=== PATIENT | female | born 1955 | race Caucasian/White ===

== ENCOUNTER → 2022-07-05 15:47 | Outpatient (CLI) | payer BC, SELFPAY ==
--- NOTE | ~2022-07-05 | XR_ITS ---
EXAM: XR ankle LT min 3V DATE: 07/05/2022 16:28 HISTORY: Chronic pain of ankle . COMPARISON: None available. FINDINGS: Normal mineralization. Osseous fragment at the tip of the lateral malleolus may represent an old avulsion fracture versus fractured osteophyte. Achilles and plantar enthesopathy No acute frac ture or dislocation. No lytic or blastic lesion. Moderate narrowing and osteophytosis at the tibiotal ar joint. No erosion or periosteal change. Soft tissues within normal limits. IMPRESSION: Moderate tibiotalar osteoarthritis. Reviewed, dictated and finalized at location K.
== END ==
DX: M19.072 Primary osteoarthritis, left ankle and foot (principal)
CPT/HCPCS: 73610

== ENCOUNTER 2023-06-07 14:19 | Outpatient (CLI) | payer BC, MEDICARE, SELFPAY ==
--- NOTE | ~2023-06-07 | XR_ITS ---
XR hip RT 2V w AP pelvis DATE: 06/07/2023 14:50 INDICATION: Right hip pain TECHNIQUE: AP pelvis. AP and lateral views of right hip. COMPARISON: None FINDINGS: Levoscoliosis of the lumbar spine. The pubic symphysis and sacroiliac joints are intact. No pelvic fracture or bone destruction. Hip joint spaces are symmetric and relatively well preserved. No fracture, dislocation, avascular necrosis or bone destruction of the right hip. IMPRESSION: No pelvic or right hip fracture Reviewed, dictated and finalized at location B.
== END 2023-06-07 14:20 ==
DX: M25.551 Pain in right hip (principal)
CPT/HCPCS: 73502

== ENCOUNTER 2023-07-06 14:59 | Outpatient (CLI) | payer MEDICARE, SELFPAY ==
--- NOTE | ~2023-07-06 | MR_ITS ---
EXAMINATION: MR foot RT wo/w con DATE: 07/06/2023 16:02 INDICATION: Neuroma with plantar right foot pain TECHNIQUE: Magnetic resonance imaging (MRI) of the right fore/mid foot was performed without and with 15 mL Multihance intravenous contrast. Sequences included sagittal T1-weighted FSE, sagittal fluid s ensitive FSE STIR, coronal PD-weighted FS FSE, coronal T1-weighted FSE, axial T2-weighted FS FSE, axi al T1-weighted FSE, axial T1-weighted FS FSE and postcontrast axial, sagittal and coronal T1-weighted FS FSE. COMPARISON: None FINDINGS: Bone alignment is normal. No fracture or pathologic marrow replacing process. There is mild polyartic ular osteoarthritis at the first metatarsophalangeal joint and several tarsal metatarsal and interpha langeal joints. There is mild subarticular edema-like signal change at the base of the third metatars al. Mild cystic change at the medial head of the first metatarsal consistent with a developing bunion . Physiologic amount fluid in the joint spaces. There is an 11 x 8 x 3 mm nonenhancing fluid collecti on situated between the heads of the first and second metatarsals consistent with mild intermetatarsa l bursitis. No enhancing Teran neuroma or other abnormally enhancing masses identified. Visualized p ortions of the flexor and extensor tendons are normal. The Lisfranc complex and the collateral ligame nt complex at the metatarsophalangeal and interphalangeal joints are normal. Intrinsic musculature of the foot is unremarkable. IMPRESSION: 1. Mild intermetatarsal bursitis between heads of the first and second metatarsal. No Teran's neurom a identified. 2. Mild polyarticular osteoarthritis in the mid and forefoot. Reviewed, dictated and finalized at location A. IMPRESSION: 1. Mild intermetatarsal bursitis between heads of the first and second metatars al. No Teran's neuroma identified. 2. Mild polyarticular osteoarthritis in the mid and forefoot.
== END 2023-07-06 15:00 ==
PROVIDERS: PCP Podiatrist Foot & Ankle Surgery; Visit Provider Podiatrist Foot & Ankle Surgery
DX: G47.61 Periodic limb movement disorder (principal)
CPT/HCPCS: 73720; A9577

== ENCOUNTER 2024-04-18 15:09 | Outpatient (CLI) | payer MEDICARE, SELFPAY ==
--- OUTSIDE RECORDS SUMMARY | 2024-04-18 15:19 | XMS_ITS | Clinical Summary ---
Author Organization [facility] Address [address] [place] [address] Care Team Providers Care Aws Solution Architect Name Role Phone Shannon Poon MD Unavailable UnavailMahesh Hampton MD Unavailable [phone] Adonay Lopez MD Unavailable Unavailable Krista Tubbs MD Unavailable [phone] Manjinder Torres MD Unavailable Cassidy Guerrero DO Unavailable [phone] Tutu Baron DO Primary Care Provider [phone] Source Comments [facility],non-owned Affiliates and Associated Physician Practices is amultiple site organization consisting of ambulatory clinics and hospital sitesin [place], [place], [place] and [place]. This disclosure is being madepursuant to the Care Everywhere program and may not contain all information available regarding this patient. Last updated 17.[facility] Allergies Active Allergy Reactions Criticality Noted Date Comments Ami-Christopher 04/17/2008 Intolerant Buspirone Hcl 04/17/2008 Insomnia Buspirone Other 03/28/2019 insomina Lidocaine Hcl Other 04/17/2008 Crying, and felt panic Medications * Be aware that medications may not be up to date on this document. Alwaysverify current medications with the patient. Medication Sig Dispensed Refills Start Date End Date Status ADVIL 200 MG TABS Take 2 (two) tablets by mouth as needed for Pain Reported on 01/18/2016 Active ZYRTEC 10 MG TABS Take 1 (one) tablet by mouth at bedtime Active Vitamin D 1000 UNIT CAPS Take 1 (one) capsule by mouth once daily Active famotidine (PEPCID) 20 MG tablet Take 1 (one) tablet by mouth 2 times daily Active Multiple Vitamins-Minerals (MULTIVITAMIN GUMMIES WOMENS) CHEW Take 2 Each by mouth at bedtime Active fluticasone propionate (FLONASE) 50 MCG/ACT nasal spray Cornish 2 (two) sprays into the nose once daily Active bifantis (ALIGN) capsule Take 1 (one) capsule by mouth once daily Active Other Take 2 Each by mouth once daily inulin (FIBER GUMMIES ORAL) Active ALBUTEROL SULFATE IN Take 2 puffs every 4hrs as needed Active atenolol (Tenormin) 25 MG tabletIndications :Essential hypertension with goal blood pressure less than 130/80,Palpitatio ns Take 1 (one) tablet by mouth at bedtime 90 tablet 3 4 Active bismuth subsalicylate (Pepto-Bismol Max Strength) 525 MG/15ML suspension Take 15 mL by mouth every 1 hour as needed for Diarrhea or Nausea/Vomiting Active acetaminophen (TYLENOL) 500 MG tablet Take 1 (one) tablet by mouth every 4 hours as needed for Fever or Pain Maximum allowable Acetaminophen amount = 4 Grams (4000 mg) / 24 hours. Active rosuvastatin (Crestor) 20 MG tablet TAKE 1 TABLET BY MOUTH DAILY 90 tablet 3 5 Active triamterene-hydro CHLOROthiazide (Dyazide) 37.5-25 MG capsule TAKE 1 CAPSULE BY MOUTH DAILY 90 capsule 3 5 Active rosuvastatin (Crestor) 20 MG tablet Take 1 (one) tablet by mouth once daily 90 tablet 3 4 04/01/19 25 Discontinued triamterene-hydro CHLOROthiazide (Dyazide) 37.5-25 MG capsule Take 1 (one) capsule by mouth once daily 90 capsule 3 4 04/01/19 25 Discontinued Active Problems Problem Noted Date Diagnosed Date Rectocele 12/29/2022 PSVT (paroxysmal supraventricular tachycardia) 1 Pain associated with defecation 01/05/2021 Status post tonsillectomy 08/11/2019 Age-related osteoporosis wit hout current pathological fracture 05/06/2019 Menopausal symptoms 02/07/2019 Hyperlipidemia 12/27/2016 Essential hypertension 01/18/2016 Degeneration of cervical intervertebral disc Fear of hypodermic needles 01/04/2010 Overview (01/04/2010): Faint and near syncope LPRD (laryngopharyngeal reflux disease) 10/13/19 10 Vitamin D deficiency 01/13/2009 Overview (12/03/2014): Hx of Mitral Insufficiency 04/17/2008 Overview (10/12/2009): Followed by cardiology, Dr. Poon Hx of Tricuspid Insufficiency 04/17/2008 Allergic rhinitis 04/17/2008 Endometriosis 04/17/2008 Fracture of Fingers 04/17/2008 Palpitations 04/17/2008 Chronic Left Serious Otitis 04/17/2008 Nevi Left Leg 04/17/2008 Resolved Problems Problem Noted Date Diagnosed Date Resolved Date Encounter for screening mamm ogram for malignant neoplasm of breast 08/11/2019 01/05/2020 Encounter for routine gyneco logical examination 08/11/2019 12/09/2021 Symptomatic menopausal or fe male climacteric states 08/11/2019 01/05/2020 Encounter for cholecystectomy 08/11/2019 01/05/2020 Screening for eye condition March 26, 2013 Adonay Lopez MD see scanned report 04/07/201304/2019 Chest pain 04/17/2008 12/09/2021 Overview (04/17/2008): With atypical qualities Possible Mild Pulmonary Hypertension 04/17/2008 09/07/2009 Overview (09/07/2009): Resolved per echo, August 2009, Dr. Poon Encounters Date Type Department Care Team Description 04/01/2024 Refill [facility] - Internal Medicine [address] [facility] [facility] [place] [address] [place] [address] Tutu Baron, DO Refill Request from Last 3 Months Immunizations Name Administration Dates Next Due COVID MODERNA 12+ yr 50mcg/0.5mL 11/09/2023,0308/2023,11/24/2022 COVID MODERNA BIVALENT 12Y+ 50MCG/0.5ML 06/25/2022,11/11/2021 Covid Moderna booster monova lent 6y-11yr 0.5ml 11/09/2023,11/24/2022,06/25/2022 Covid Moderna primary monova lent 12+ yr 0.5mL 01/11/2021,11/11/2020,05/11/2020,2020 HepB Unspecified formulation 07/14/2010,02/12/20 10,01/04/2010 INFLUENZA VACCINE 12/11/2023,,12/20/2021,2020,12/05/2019 INFLUENZA VACCINE, HIGH-DOSE , QUADR. (FLUZONE HIGH-DOSE QUADRIVALENT; 65Y+), 0.7 ML (HD-IIV4) 12/07/2022,12/20/2021,12/07/2020 INFLUENZA VACCINE, HIGH-DOSE , TRIV. (FLUZONE HIGH-DOSE TRIVALENT; 65Y+) (HD-IIV3) 12/11/2023 INFLUENZA VACCINE, QUADR. (F LUZONE; FLULAVAL; FLUARIX; AFLURIA QUADRIVALENT; 6MO+), 0.5 ML (IIV4) 12/05/2019 MODERNA SARS-COV-2 COVID-19 VACCINE 0.25ML 06/13/2021 PNEUMOCOCCAL PPSV23 08/12/2019,02/02/2001 Pneumococcal Pcv13 Conj 08/01/2018 RSV AREXVY 60YR+ 0.5ML 10/30/2022 TD VACCINE 02/02/1999,02/02/1989 TDAP (7yrs+) 08/01/2018,05/05/2008 ZOSTER VACCINE, LIVE 07/02/2013 Zoster Hzv Vacc Recombinant Inj Im 01/31/2019, Family History Medical History Relation Name Comments Parkinson's Disease Father Dementia Mother Glaucoma Mother Hypertension Mother Macular Degeneration Mother Osteoporosis Mother Cancer - Colon Paternal Grandmother Relation Name Status Comments Brother Alive Father (Age 90) Mother Alive Paternal Grandmother Social History Tobacco Use Types Packs/Day Years Used Date Smoking Tobacco: Never Smokeless Tobacco: Never Tobacco Cessation:Counseling Given: Not Answered Alcohol Use Standard Drinks/Week Comments No 0 (1 standard drink = 0.6 oz pure alcohol) very rare - maybe couple times a year PHQ-2 Answer Date Recorded Patient Health Questionnaire-2 Score 0 01/01/2024 Sex and Gender Information Value Date Recorded Sex Assigned at Not on file Gender Identity Not on file Sexual Orientation Not on file Last Filed Vital Signs Vital Sign Reading Time Taken Comments Blood Pressure 118/66 01/10/2024 11:20 AM ADOPTION COORDINATOR Pulse 76 01/10/2024 11:20 AM ADOPTION COORDINATOR Temperature 36.8 C (98.2 F) 01/01/2024 3:06 PM CDT Respiratory Rate 18 06/08/2020 11:59 AM CDT Oxygen Saturation 98% 01/01/2024 3:06 PM CDT Inhaled Oxygen Concentration - - Weight 77.3 kg (170 lb 6.4 oz) 01/10/2024 11:20 AM ADOPTION COORDINATOR Height 160 cm (5' 3 ) 01/01/2024 3:06 PM CDT Body Mass Index 30.19 01/01/2024 3:06 PM CDT Plan of Treatment Upcoming Encounters Date Type Department Care Team (Late st Contact Info) Description 01/01/2025 1:40 PM CDT Office Visit [facility] - Internal Medicine [address] [address] Tutu Baron DO [address] [facility] [facility] [place] [id number] 01/09/2025 1:00 PM ADOPTION COORDINATOR Office Visit [facility] [address] [place] [address] [address] [place] [address] Cassidy Guerrero DO [address] [place] [address] [address] [place] [address] Health Maintenance Due Date Last Done Comments COLOGUARD (AGES 45-75) - COLON CA SCREENING 1955 CT COLONOGRAPHY - COLON CA SCREENING 1955 FIT - COLON CA SCREENING 1955 FLEX SIG - COLON CA SCREENING 1955 COVID-19 VACCINE (12 - 2024-25 season) 2024 11/09/2023, 11/09/2023, 05/09/2023, Additional history exists DEPRESSION SCREENING 03/05/2024 01/01/2024, 06/29/2022, 07/01/2021 MEDICARE AWV 12 MONTHS 12/31/2024 01/01/2024 MAMMOGRAM 01/01/2025 01/01/2023, 12/05, 01/01/2023, Additional history exists COLON MONITORING 10/26/2025 10/27/2015, 11/01/2005 COLONOSCOPY - COLON CA SCREENING 10/26/2025 10/27/2015, 11/01/2005, 11/01/2005 Colorectal Cancer Screening 10/26/2025 SCREENING FOR DIABETES 12/31/2026 , 01/03/2023, 12/09/2021, Additional history exists DTAP/TDAP/TD VACCINES (5 - Td or Tdap) 08/01/2028 08/01/2018, 05/05/2008, 02/02/1999, Additional history exists HEPATITIS B VACCINE Completed 07/14/2010, 02/11/2010, 01/04/2010 ZOSTER VACCINE Completed 01/31/2019, 11/04, 07/02/2013 PNEUMOCOCCAL VACCINE 50+ Completed 020, 08/01/2018, 02/02/2001 HEPATITIS C SCREENING Completed 01/05/2020 Respiratory Syncytial Virus (RSV) Vaccine Pt: or over 60 yrs Completed 10/30/2022 BONE DENSITY TESTING Completed 04/13/2023, 04/11/2022, 04/05/2021, Additional history exists INFLUENZA VACCINE Completed 12/11/2023, , 12/07/2022, Additional history exists HIB VACCINE Aged Out No longer eligi ble based on patient's age to complete this topic HPV VACCINE Aged Out No longer eligi ble based on patient's age to complete this topic MENINGOCOCCAL (Group B) VACCINE Aged Out No longer eligible based on patient's age to complete this topic MENINGOCOCCAL VACCINE Aged Out No jeanette dharmesh eligible based on patient's age to complete this topic Goals Goal Patient Goal Type Associated Problems Recent Progress Patient-Stated? Author Blood Pressure < 140/90 Blood Pressure 118/66(2023 11:20 AM ADOPTION COORDINATOR) No Felicity Hess Exercise 3X per week (30 min per time) Exercise On track( 015 11:08 AM ADOPTION COORDINATOR) No Pam Garcia MA Procedures Procedure Name Priority Date/Time Associated Diagnosis Comments COMPREHENSIVE METABOLIC PANEL Routine 01/01/2024 3:43 PM CDT Essential hypertension MAMMO BILAT SCREENING Routine 01/01/2023 Screening mammogram for breast cancer HEPATITIS C ANTIBODY Routine 01/05/2020 2:19 PM ADOPTION COORDINATOR Need for hepatitis C screening test ENDOSCOPY, COLON, SCREENING Routine 10/27/2015 DEXA BONE DENSITY 2 SITES Routine 10/12/2009 from Last 3 Months or Most Recently Relevant to Health Maintenance Results * COMPREHENSIVE METABOLIC PANEL (01/01/2024 3:43 PM CDT) Glucose 98 70 - 99 mg/dL [facility] INSURANCE BILL BUN 15 8 - 27 mg/dL [facility] INSURANCE BILL Creatinine 0.82 0.57 - 1.00 mg/dL [facility] INSURANCE BILL eGFR by CKD-EPI 77 >59 mL/min/1.7 3 [facility] INSURANCE BILL BUN/Creatinine Ratio 18 12 - 28 [facility] INSURANCE BILL Sodium 137 134 - 144 mmol/L [facility] INSURANCE BILL Potassium 4.0 3.5 - 5.2 mmol/L [facility] INSURANCE BILL Chloride 98 96 - 106 mmol/L [facility] INSURANCE BILL CO2 24 20 - 29 mmol/L [facility] INSURANCE BILL Calcium 9.6 8.7 - 10.3 mg/dL [facility] INSURANCE BILL Protein Total 6.5 6.0 - 8.5 g/dL [facility] INSURANCE BILL Albumin 4.0 3.9 - 4.9 g/dL [facility] INSURANCE BILL Globulin Total 2.5 1.5 - 4.5 g/dL [facility] INSURANCE BILL Bilirubin Total 0.9 0.0 - 1.2 mg/dL [facility] INSURANCE BILL Alkaline Phosphatase 94 44 - 121 IU/L [facility] INSURANCE BILL AST 23 0 - 40 IU/L [facility] INSURANCE BILL ALT 26 0 - 32 IU/L [facility] INSURANCE BILL Blood BLOOD SPECIMEN / Unknown 01/01/2024 3:43 PM CDT 01/01/2024 Narrative [facility] INSURANCE BILL - 01/02/2024 9:13 AM CDT Performed at: [facility] - [facility] [address] [place], [place] [id number] Starch Crab: Dejon Mcgee PhD, Phone: [phone] Tutu Baron DO LAB - CHEMISTRY OSCAR MOLINA Performing Organization Address [facility] Co de Phone Number [facility] INSURANCE BILL [address] [place] [address] * MAMMO BILAT SCREENING (01/01/2023) Anatomical Region Laterality Modality Breast Bilateral Mammography 01/01/2023 Tutu Baron DO MAMMO ORDERABLES * HEPATITIS C ANTIBODY (01/05/2020 2:19 PM ADOPTION COORDINATOR) Hepatitis C Antibody Non Reactive Non Reactive [facility] ACCOUNT BILL Comment: Non Reactive - Antibodies to Hepatitis C virus (HCV) were no t detected, result does not exclude early acute HCV infection. Blood BLOOD SPECIMEN / Unknown 01/05/2020 2:19 PM ADOPTION COORDINATOR 01/05/2020 Narrative Resulting Agency Comment Lab Testing performed at: [facility] [address] [place] [id number] Gabriela Lenz MD LAB - CHEMISTRY OSCAR MOLINA Performing Organization Address [facility] Co de Phone Number [facility] ACCOUNT BILL [address] [place] [address] * ENDOSCOPY, COLON, SCREENING (10/27/2015) Bam Acosta MD GI PROCEDURE ORDERAB LES * DEXA BONE DENSITY 2 SITES (10/12/2009) Anatomical Region Laterality Modality Other Bam Acosta MD DEXA ORDERABLES from Last 3 Months or Most Recently Relevant to Health Maintenance Care Teams Aws Solution Architect Relationship Specialty Start Date End Date Tutu Baron DO [address] [place] [address] PCP - General Internal Medicine 08/25/21 Shannon Poon MD 10/16/09 Mahesh Duke MD [address] [address] 10/16/09 Adonay Lopez MD [address] [address] Ophthalmology 03/26/13 Krista Tubbs MD [address] [place] [address] Physical Medicine and Rehabilitation 09/09/14 Manjinder Torres MD [address] [place] [address] Obstetrics and Gynecology 02/07/19 Cassidy Guerrero DO [address] [facility] [address] [place] [address] Cardiovascular Disease 07/25/21
--- OUTSIDE RECORDS SUMMARY | 2024-04-18 15:19 | XMS_ITS | Encounter Summary ---
Author Organization [facility] Address [address] [place] [address] Care Team Providers Care Senior Account Representative Name Role Phone Bam Acosta MD Primary Care Provider Unavail able Encounter Details Date Type Department Care Team (Latest Contact Info) Description 2005 Outpatient Historical [facility] HELEN Fernandes, Roger Gould MD NO ADDRESS ON FILE Other Screening Mammogram (Primary Dx) Social History Tobacco Use Types Packs/Day Years Used Date Smoking Tobacco: Never Assessed Comments Unknown Sex and Gender Information Value Date Recorded Sex Assigned at Not on file Legal Sex Female 5:12 AM SUCTION WORKER Gender Identity Not on file Sexual Orientation Not on file documented as of this encounter Plan of Treatment Not on file documented as of this encounter Visit Diagnoses Diagnosis Other screening mammogram- Primary documented in this encounter Care Teams Senior Account Representative Relationship Specialty Start Date End Date Bam Acosta MD PCP - General 02/19/15 documented as of this encounter
--- OUTSIDE RECORDS SUMMARY | 2024-04-18 15:19 | XMS_ITS | Encounter Summary ---
Author Organization [facility] Address [address] [place] [address] Care Team Providers Care Floorworker Lasting Name Role Phone Bam Acosta MD Primary Care Provider Unavail able Encounter Details Date Type Department Care Team (Latest Contact Info) Description 04/30/2003 Outpatient Historical [facility] HELEN Fernandes, Roger Gould MD NO ADDRESS ON FILE SCREENING MAMM-MAILG NEOPL-OTHER (Primary Dx) Social History Tobacco Use Types Packs/Day Years Used Date Smoking Tobacco: Never Assessed Comments Unknown Sex and Gender Information Value Date Recorded Sex Assigned at Not on file Legal Sex Female 5:12 AM WEEKEND RECEPTIONIST Gender Identity Not on file Sexual Orientation Not on file documented as of this encounter Plan of Treatment Not on file documented as of this encounter Visit Diagnoses Diagnosis Other screening mammogram- Primary documented in this encounter Care Teams Floorworker Lasting Relationship Specialty Start Date End Date Bam Acosta MD PCP - General 02/19/15 documented as of this encounter
--- OUTSIDE RECORDS SUMMARY | 2024-04-18 15:19 | XMS_ITS | Clinical Summary ---
Author Organization [facility] Administrative Offices Address [address] [place] [address] Care Team Providers Care Chargemaster Specialist Name Role Phone Bam Acosta MD Primary Care Provider Unavail able Allergies Active Allergy Reactions Criticality Noted Date Comments Ami-Christopher Unknown 04/17/2008 Intolerant Buspirone Unknown 03/28/2019 insomina Lidocaine Unknown 03/28/2019 Shortness of breath Medications ibuprofen (ADVIL;MOTRIN) 100 mg/5 mL suspension Take by mouth every 6 hours as needed for Pain, Mild. Active dextromethorphan -guaiFENesin (MUCINEX DM) 30-600 mg Tablet Sustained Release 12HR Take 1 Tablet by mouth every 12 hours. Active multivit-mineral s/folic acid (ADULT MULTIVITAMIN GUMMIES ORAL) Take by mouth. A ctive triamcinolone acetonide (NASACORT AQ) 55 mcg nasal spray Administer 1 [place] in each nostril daily. Active famotidine (PEPCID) 20 mg tablet Take 20 mg by mouth 2 times daily. Active cholecalciferol, vitamin D3, 1,000 unit Take by mouth. Acti ve Cetirizine 10 mg Capsule Take by mouth. Activ e albuterol sulfate (ProAir RespiClick) 90 mcg/actuation metered powder inhaler Take 2 Puffs by inhalation every 4 hours as needed. 0 Active triamterene-hydr oCHLOROthiazide (DYAZIDE) 37.5-25 mg capsule Take 1 Capsule by mouth. 1 Active rosuvastatin (CRESTOR) 20 mg tablet Take 20 mg by mouth. 1 Active Bifidobacterium infantis (Align) 4 mg Capsule Take by mouth. Ac tive fluticasone propionate (FLONASE) 50 mcg/spray [place], Suspension nasal inhaler Administer 2 Sprays in each nostril daily. Active inulin (FIBER GUMMIES ORAL) Take by mouth. A ctive atenoloL (TENORMIN) 25 mg tablet 2 Active ibandronate (BONIVA) 150 mg tablet TAKE 1 TABLET EVERY 30 DAYS 3 Tablet 4 Active Additional Information Patient taking differently: NOT TAKING CURRENTLY, Reported on 04/14/2024 Active Problems Problem Noted Date Diagnosed Date PSVT (paroxysmal supraventricular tachycardia) 1 Rectocele 12/29/2022 Pain associated with defecation 01/05/2021 Status post tonsillectomy 08/11/2019 Age-related osteoporosis wit hout current pathological fracture 05/06/2019 Menopausal symptoms 02/07/2019 Hyperlipidemia 12/27/2016 Degeneration of cervical intervertebral disc Essential hypertension 01/18/2016 Fear of hypodermic needles 01/04/2010 Overview (04/14/2024): Faint and near syncope LPRD (laryngopharyngeal reflux disease) 10/13/19 10 Vitamin D deficiency 01/13/2009 Allergic rhinitis 04/17/2008 Endometriosis 04/17/2008 Fracture of finger 04/17/2008 Mitral insufficiency 04/17/2008 Overview (04/14/2024): Followed by cardiology, Dr. Poon Tricuspid insufficiency 04/17/2008 Nevus 04/17/2008 Otitis 04/17/2008 Palpitations 04/17/2008 Encounters Date Type Department Care Team Description 04/14/2024 1:00 PM WEAVER TIRE CORD Office Visit [facility] BUFFING MACHINE OPERATOR SEMIAUTOMATIC - [facility] [address] [place] [phone] Manjinder Torres MD Encounter for gynecological examination without abnormal finding (Primary Dx); Screening for cervical cancer 04/04/2024 Telephone [facility] BUFFING MACHINE OPERATOR SEMIAUTOMATIC - [facility] [place] [facility] [address] [place] [address] Brandon Linda MD new order for bone scan 04/01/2024 External Device Data [facility] ABSTRACTION Provider, Abstract 03/26/2024 External Device Data [facility] ABSTRACTION Provider, Abstract 03/26/2024 External Device Data [facility] ABSTRACTION Provider, Abstract 02/13/2024 1:07 PM WEAVER TIRE CORD - 02/13/2024 11:59 PM WEAVER TIRE CORD Hospital Encounter [facility] [place] [facility] [address] [place] [address] Bam Acosta MD Discharge Disposition: Home or Self Care from Last 3 Months Family History Medical History Relation Name Comments Alcohol abuse Brother Hypertension Father Gregg Bob High Choleste rol, Parkinson s Dementia Other Father Gregg Bob Fall complica tions Parkinson's Disease Father Gregg Bob Cancer - Other Mother Estefania Bob Skin cancer ( not sure which type. Chryo treatments.) High Cholesterol Mother Estefania Bob Hypertension Mother Estefania Bob CHF, high melly sterol, HBP, osteoporosis Skin Cancer Mother Estefania Bob Cancer Paternal Grandfather Iglesia Bob Lung cancer Cancer - Other Paternal Grandfather Iglesia Bob Mary ng cancer Lung Cancer Paternal Grandfather Iglesia Bob Cancer Paternal Grandmother Capri Bob Stom ach cancer Cancer - Other Paternal Grandmother Capri Bob St omach cancer Breast Cancer Neg Hx Ovarian Cancer Neg Hx Relation Name Status Comments Brother Alive Father Gregg Bob Maternal Grandfather Maternal Grandmother Mother Estefania Bob Alive Paternal Grandfather Iglesia Bob Paternal Grandmother Capri Bob Son Alive Social History Tobacco Use Types Packs/Day Years Used Date Smoking Tobacco: Never Smokeless Tobacco: Never Tobacco Cessation:Counseling Given: Not Answered Alcohol Use Standard Drinks/Week Comments Yes 0 (1 standard drink = 0.6 oz pur e alcohol) rarely Comments No Sex and Gender Information Value Date Recorded Sex Assigned at Not on file Legal Sex Female 5:12 AM WEAVER TIRE CORD Gender Identity Not on file Sexual Orientation Not on file Occupation Industry Job Start Date Job End Date Not on file Not on file Not on file Not on file Last Filed Vital Signs Vital Sign Reading Time Taken Comments Blood Pressure 130/82 04/14/2024 1:07 PM WEAVER TIRE CORD Pulse - - Temperature - - Respiratory Rate - - Oxygen Saturation - - Inhaled Oxygen Concentration - - Weight 76.7 kg (169 lb) 04/14/2024 1:07 PM WEAVER TIRE CORD Height 160 cm (5' 3 ) 04/14/2024 1:07 PM WEAVER TIRE CORD Body Mass Index 29.94 04/14/2024 1:07 PM WEAVER TIRE CORD Plan of Treatment Health Maintenance Due Date Last Done Comments Pre-Diabetes and Diabetes Screening 1955 Traditional Medicare (ACO) A nnual Wellness Visit 1972 FIT-DNA Q 3 years 1998 FIT/FOBT Q 1 year 1998 Flex Sig/CT Colonography Q 5 years 1998 BREAST CANCER SCREENING 02/12/2025 02/13/20, 01/01/2023, 12/30/2021, Additional history exists COLORECTAL SCREENING 10/26/2025 10/27/2015 Colorectal Cancer Screening 10/26/2025 RSV VACCINE (60+ or ) (1 - 1-dose 75+ series) 2028 DTAP/TDAP/TD VACCINES (3 - T d or Tdap) 08/01/2028 08/01/2018, 05/05/2008, 02/02/1999, Additional history exists ZOSTER VACCINE Completed 01/31/2019, 11/04, 07/02/2013 PNEUMOCOCCAL VACCINE 65+ YEARS Completed 0 08/12/2019, 08/01/2018, 02/02/2001 OSTEOPOROSIS SCREENING Completed , 04/11/2022, 04/05/2021, Additional history exists COVID-19 Vaccine Completed 11/09/2023, 08/2023, 11/24/2022, Additional history exists INFLUENZA VACCINE Completed 12/11/2023, , 12/07/2022, Additional history exists Procedures Procedure Name Priority Date/Time Associated Diagnosis Comments CERV/VAG CYTO SCREEN PAP RLFX HPV Routine 04/14/2024 2:09 PM WEAVER TIRE CORD Screening for cervical cancer MAMMO 3D JUDY SCREEN BILAT W OR WO CAD Routine 02/13/2024 1:24 PM WEAVER TIRE CORD Visit for screening mammogram XR DEXA BONE DENSITY AXIAL 1 OR MORE SITES Routine 04/13/2023 3:08 PM WEAVER TIRE CORD Age-related osteoporosis without current pathological fracture Fracture Risk Assessment Score (FRAX) indicating greater than 20% risk for major osteoporosis-related fracture Fracture Risk Assessment Score (FRAX) indicating greater than 3% risk for hip fracture Encounter for bone density measurement for therapeutic drug monitoring Encounter for monitoring ibandronate therapy from Last 3 Months or Most Recently Relevant to Health Maintenance Results * CERV/VAG CYTO SCREEN PAP RLFX HPV (04/14/2024 2:09 PM WEAVER TIRE CORD) CLINICAL INFORMATION [facility] Comment:None given LAST MENSTRUAL PERIOD [facility] Comment:NONE GIVEN PREV PAP: [facility] Comment:NONE GIVEN PREV BX: [facility] Comment:NONE GIVEN SOURCE [facility] Comment:ENDOCERVIX ADEQUACY: [facility] Comment:SATISFACTORY FOR JOHNATHAN LUATION PAP INTERP [facility] Comment: Cytology Results: Negative for intraepithelial lesion or malignancy. Atrophic pattern; predominantly parabasal cells COMMENT (PAP TEST) [facility] Comment: This Pap test has been evaluated with computer assisted technology. MANAGER RELOCATION: Mellissa Bain [facility] Comment: FCB, CT(ASCP) CT screening location: [facility], [address] [place] [address] [address], [place] [address] Seaming Machine Operator: LIVAN SEGURA MD, CLIA: [id number] EXPLANATORY NOTE [facility] Comment: EXPLANATORY NOTE: The Pap is a screening test for cervical cancer. It is not a diagnostic test and is subject to false negative and false positive results. It is most reliable when a satisfactory sample, regularly obtained, is submitted with relevant clinical findings and history, and when the Pap result is evaluated along with historic and current clinical information. Test Performed at: [facility] [address] [phone] Adonay Segura MD Genital SWAB OF ENDOCERVIX / Unknown 04/14/2024 2:09 PM WEAVER TIRE CORD 04/14/2024 10:56 PM WEAVER TIRE CORD Manjinder Torres MD PATHOLOGY/CYTOLOGY ORD ERABLES Final Result [facility] [phone] [facility] [address] [phone] * MAMMO 3D JUDY SCREEN BILAT W OR WO CAD (02/13/2024 1:24 PM WEAVER TIRE CORD) Anatomical Region Laterality Modality Breast Bilateral Mammography 02/13/2024 1:24 PM WEAVER TIRE CORD Impressions 02/13/2024 1:45 PM WEAVER TIRE CORD IMPRESSION: No mammographic evidence of malignancy. RECOMMENDATIONS: Routine screening mammogram in one year. DICTATION LOCATION: [facility] Narrative 02/13/2024 1:45 PM WEAVER TIRE CORD BILATERAL FULL-FIELD DIGITAL SCREENING MAMMOGRAM WITH CAD WITH 3D TOMOSYNTHESIS DATE: 02/13/2024 1:24 PM HISTORY: Routine screening. TECHNIQUE: Full-field digital craniocaudal and mediolateral oblique projections of both breasts were obtained. Low-dose full-field digital breast tomosynthesis examination was performed with 2D and 3D acquisitions. Examination is read in conjunction with computer aided detection. COMPARISON: May 2018 through December 2022 BREAST COMPOSITION: There are scattered areas of fibroglandular density FINDINGS: No suspicious mass, suspicious microcalcifications, or architectural distortion in either breast is identified. Since the prior study, there has been no significant interval change. The computer aided diagnosis detects no significant abnormality. OVERALL FINAL ASSESSMENT: BI-RADS CATEGORY 1 - Negative Procedure Note Tone Edouard MD - 02/13/2024 BILATERAL FULL-FIELD DIGITAL SCREENING MAMMOGRAM WITH CAD WITH 3D TOMOSYNTHESIS DATE: 02/13/2024 1:24 PM HISTORY: Routine screening. TECHNIQUE: Full-field digital craniocaudal and mediolateral oblique projections of both breasts were obtained. Low-dose full-field digital breast tomosynthesis examination was performed with 2D and 3D acquisitions. Examination is read in conjunction with computer aided detection. COMPARISON: May 2018 through December 2022 BREAST COMPOSITION: There are scattered areas of fibroglandular density FINDINGS: No suspicious mass, suspicious microcalcifications, or architectural distortion in either breast is identified. Since the prior study, there has been no significant interval change. The computer aided diagnosis detects no significant abnormality. OVERALL FINAL ASSESSMENT: BI-RADS CATEGORY 1 - Negative IMPRESSION: No mammographic evidence of malignancy. RECOMMENDATIONS: Routine screening mammogram in one year. DICTATION LOCATION: [facility] Bam Acosta MD MAMMO ORDERABLES Final Result * XR DEXA BONE DENSITY AXIAL 1 OR MORE SITES (04/13/2023 3:08 PM WEAVER TIRE CORD) Anatomical Region Laterality Modality Computed Radiogr aphy Impressions 04/16/2023 3:46 PM WEAVER TIRE CORD : Patient's bone density is stable to improved after 4 years of Boniva. Her FRAX calculation this year is just under the threshold for osteoporosis. She can discontinue the Boniva at this time. Repeat the bone density in 1 year. Over the next couple of years, she will likely need to return to treatment. Brandon Linda MD DIAGNOSTIC IMAGING ORDERABLE S Final Result from Last 3 Months or Most Recently Relevant to Health Maintenance Insurance MEDICARE PART A AND B HERMELINDA MCR SUPP Care Teams Chargemaster Specialist Relationship Specialty Start Date End Date Bam Acosta MD PCP - General 02/19/15
--- OUTSIDE RECORDS SUMMARY | 2024-04-18 15:19 | XMS_ITS | Encounter Summary ---
Author Organization [facility] Address [address] [place] [address] Care Team Providers Care Professor Of Management Name Role Phone Bam Acosta MD Primary Care Provider Unavail able Encounter Details Date Type Department Care Team (Latest Contact Info) Description 04/12/2001 Outpatient Historical HIS [facility] HELEN Fernandes, Roger Gould MD NO ADDRESS ON FILE SCREENING MAMM-MAILG NEOPL-OTHER (Primary Dx) Social History Tobacco Use Types Packs/Day Years Used Date Smoking Tobacco: Never Assessed Comments Unknown Sex and Gender Information Value Date Recorded Sex Assigned at Not on file Legal Sex Female 5:12 AM LOADER MAGAZINE GRINDER Gender Identity Not on file Sexual Orientation Not on file documented as of this encounter Plan of Treatment Not on file documented as of this encounter Visit Diagnoses Diagnosis Other screening mammogram- Primary documented in this encounter Care Teams Professor Of Management Relationship Specialty Start Date End Date Bam Acosta MD PCP - General 02/19/15 documented as of this encounter
--- OUTSIDE RECORDS SUMMARY | 2024-04-18 15:19 | XMS_ITS | Encounter Summary ---
Author Organization [facility] Address [address] [place] [address] Care Team Providers Care Industrial Relations Worker Name Role Phone Bam Acosta MD Primary Care Provider Unavail able Encounter Details Date Type Department Care Team (Latest Contact Info) Description 04/24/2002 Outpatient Historical HIS [facility] HELEN Fernandes, Roger Gould MD NO ADDRESS ON FILE SCREENING MAMM-MAILG NEOPL-OTHER (Primary Dx) Social History Tobacco Use Types Packs/Day Years Used Date Smoking Tobacco: Never Assessed Comments Unknown Sex and Gender Information Value Date Recorded Sex Assigned at Not on file Legal Sex Female 5:12 AM GRAPHIC DESIGN SPECIALIST Gender Identity Not on file Sexual Orientation Not on file documented as of this encounter Plan of Treatment Not on file documented as of this encounter Visit Diagnoses Diagnosis Other screening mammogram- Primary documented in this encounter Care Teams Industrial Relations Worker Relationship Specialty Start Date End Date Bam Acosta MD PCP - General 02/19/15 documented as of this encounter
--- OUTSIDE RECORDS SUMMARY | 2024-04-18 15:19 | XMS_ITS | Encounter Summary ---
Author Organization [facility] Address [address] [place] [address] Care Team Providers Care Stamper Blocker Name Role Phone Bam Acosta MD Primary Care Provider Unavail able Encounter Details Date Type Department Care Team (Latest Contact Info) Description 06/25/2006 Outpatient Historical HIS [facility] HELEN Fernandes, Roger Goudl MD NO ADDRESS ON FILE Other Screening Mammogram (Primary Dx) Social History Tobacco Use Types Packs/Day Years Used Date Smoking Tobacco: Never Assessed Comments Unknown Sex and Gender Information Value Date Recorded Sex Assigned at Not on file Legal Sex Female 5:12 AM SUPERVISOR STOCK RANCH Gender Identity Not on file Sexual Orientation Not on file documented as of this encounter Plan of Treatment Not on file documented as of this encounter Visit Diagnoses Diagnosis Other screening mammogram- Primary documented in this encounter Care Teams Stamper Blocker Relationship Specialty Start Date End Date Bam Acosta MD PCP - General 02/19/15 documented as of this encounter
--- OUTSIDE RECORDS SUMMARY | 2024-04-18 15:19 | XMS_ITS | Encounter Summary ---
Author Organization [address] [facility] Address [address] [place] [address] Care Team Providers Care Integration Assistant Name Role Phone Bam Acosta MD Primary Care Provider Unavail able Encounter Details Date Type Department Care Team (Late st Contact Info) Description 11/01/2005 Outpatient Historical [facility] Mahesh Duke MD NO ADDRESS ON FILE Special Screening for Malignant Neoplasms, Colon (Primary Dx) Social History Tobacco Use Types Packs/Day Years Used Date Smoking Tobacco: Never Assessed Comments Unknown Sex and Gender Information Value Date Recorded Sex Assigned at Not on file Legal Sex Female 5:12 AM BLOOD BANK WORKER Gender Identity Not on file Sexual Orientation Not on file documented as of this encounter Plan of Treatment Not on file documented as of this encounter Visit Diagnoses Diagnosis Special screening for malignant neoplasms, colon- Primary documented in this encounter Care Teams Integration Assistant Relationship Specialty Start Date End Date Bam Acosta MD PCP - General 02/19/15 documented as of this encounter
--- OUTSIDE RECORDS SUMMARY | 2024-04-18 15:19 | XMS_ITS | Encounter Summary ---
Author Organization [facility] Address [address] [place] [address] Care Team Providers Care Shell Machine Operator Name Role Phone Bam Acosta MD Primary Care Provider Unavail able Encounter Details Date Type Department Care Team (Latest Contact Info) Description 06/26/2008 Outpatient Historical HIS [facility] Roger Sanchez MD NO ADDRESS ON FILE Other Screening Mammogram Social History Tobacco Use Types Packs/Day Years Used Date Smoking Tobacco: Never Assessed Comments Unknown Sex and Gender Information Value Date Recorded Sex Assigned at Not on file Legal Sex Female 5:12 AM PHARMACEUTICAL REPRESENTATIVE Gender Identity Not on file Sexual Orientation Not on file documented as of this encounter Plan of Treatment Not on file documented as of this encounter Procedures Procedure Name Priority Date/Time Associated Diagnosis Comments MAMMO SCREEN BILAT W OR WO CAD Routine 06/26/2008 10:44 AM CDT documented in this encounter Results * MAMMO DIGITAL SCREEN BILAT (06/26/2008 10:44 AM CDT) Anatomical Region Laterality Modality Breast Bilateral Other 06/26/2008 10:4 4 AM CDT Narrative 06/26/2008 2:37 PM CDT [id number] [place], [place] [address] Admit Date: 06/26/2008 DARIO MOSELEY Sex: F Admit Prov: ROGER GARCIA Date: 1955 Primary Care Prov: BAM ACOSTA CMRN: [id number] Room: [facility] N: [id number] IMAGING SERVICES Ordering Prov: ROGER GARCIA Accession Number: [id number] Interpretation DIGITAL SCREENING MAMMOGRAM WITH COMPUTER-ASSISTED DIAGNOSIS Findings: The breasts were imaged with digital mammographic technique. There are scattered fibroglandular densities. No significant mass, malignant calcification or architectural distortion is noted. The CAD system does not highlight any suspicious areas. Summary: No mammographic evidence of malignancy. There has been no significant change from prior study of 06/10. Recommendations: Bilateral yearly screening mammogram is recommended. Assessment BIRADS: 1-Negative Recommendation: Normal interval follow-up Dictated by: MALGORZATA PRIETO Electronically signed by: MALGORZATA PRIETO 06/26/2008 14:37 Transcribed: 06/26/2008 14:37 CXZ Procedure Note Malgorzata Gerber MD - 06/26/2008 [id number] [place], [place] [id number] Admit Date: 06/26/2008 DARIO MOSELEY Sex: F Admit Prov: JOSEROGER Date: 1955 Primary Care Prov: BAM ACOSTA CMRN: [id number] Room: DINORAHPipo N: [id number] IMAGING SERVICES Ordering Prov: ROGER GARCIA Interpretation DIGITAL SCREENING MAMMOGRAM WITH COMPUTER-ASSISTED DIAGNOSIS Findings: The breasts were imaged with digital mammographictechnique. There are scattered fibroglandular densities. No significant mass, malignant calcification or architectural distortion is noted. The CAD system does not highlight any suspicious areas. Summary: No mammographic evidence of malignancy. There has been no significant change from prior study of 06/10. Recommendations: Bilateral yearly screening mammogram is recommended. Assessment BIRADS: 1-Negative Recommendation: Normal interval follow-up Dictated by: MALGORZATA PRIETO Electronically signed by: MALGORZATA PRIETO 06/26/2008 14:37 Transcribed: 06/26/2008 14:37 CXZ us Roger Garcia MD MAMMO ORDERABLES Final Result documented in this encounter Visit Diagnoses Diagnosis Other screening mammogram documented in this encounter Care Teams Shell Machine Operator Relationship Specialty Start Date End Date Bam Acosta MD PCP - General 02/19/15 documented as of this encounter
--- OUTSIDE RECORDS SUMMARY | 2024-04-18 15:19 | XMS_ITS | Referral Summary ---
Author Organization [facility] Address [address] [place] [place] [address] Care Team Providers Care Linen Manager Name Role Phone Shannon Poon MD Unavailable UnavailMahesh Hampton MD Unavailable [phone] Adonay Lopez MD Unavailable Unavailable Krista Tubbs MD Unavailable [phone] Manjinder Torres MD Unavailable Cassidy Guerrero DO Unavailable [phone] Tutu Baron DO Primary Care Provider [phone] Source Comments [facility],non-owned Affiliates and Associated Physician Practices is amultiple site organization consisting of ambulatory clinics and hospital sitesin [place], [place], [place] and [place]. This disclosure is being madepursuant to the Care Everywhere program and may not contain all information available regarding this patient. Last updated 17.[facility] Encounters Date Type Department Care Team Description 04/01/2024 Refill [facility] - Internal Medicine [address] [place] [address] [place] [address] Tutu Baron DO Refill Request from Last 3 Months Allergies Active Allergy Reactions Criticality Noted Date [...] fluticasone propionate (FLONASE) 50 MCG/ACT nasal spray [place] 2 (two) sprays into the nose once [...] Resolved per echo, August 2009, Dr. Poon Immunizations Name Administration Dates Next Due COVID MODERNA 12+ yr 50mcg/0.5mL 11/09/2023,03/0 08/2023,11/24/2022 COVID MODERNA BIVALENT 12Y+ 50MCG/0.5ML 06/25/2022,11/11/2021 Covid [...] Zoster Hzv Vacc Recombinant Inj Im 01/31/2019, Social History Tobacco Use Types Packs/Day Years [...] Comments Blood Pressure 118/66 01/10/2024 11:20 AM [employer] Pulse 76 01/10/2024 11:20 AM [employer] Temperature 36.8 C (98.2 F) 01/01/2024 3:06 PM CDT Respiratory Rate 18 06/08/2020 11:59 AM CDT Oxygen Saturation 98% 01/01/2024 3:06 PM CDT Inhaled Oxygen Concentration - - Weight 77.3 kg (170 lb 6.4 oz) 01/10/2024 11:20 AM [employer] Height 160 cm (5' 3 ) 01/01/2024 3:06 PM CDT Body Mass Index 30.19 01/01/2024 3:06 PM CDT Plan of Treatment Upcoming Encounters Date Type Department Care Team (Late st Contact Info) Description 01/01/2025 1:40 PM CDT Office Visit [facility] - Internal Medicine [address] [address] Tutu Baron, DO [address] [facility] [place] [address] 01/09/2025 1:00 PM [employer] Office Visit [facility] [address] [place] [address] [address] [place] [address] Cassidy Guerrero DO [address] [place] [address] [address] [place] [address] Goals Goal Patient Goal Type Associated Problems Recent Progress Patient-Stated? Author Blood Pressure < 140/90 Blood Pressure 118/66(2023 11:20 AM [employer]) No Felicity Hess Exercise 3X per week (30 min per time) Exercise On track( 015 11:08 AM [employer]) No Pam Garcia MA Procedures Procedure Name Priority Date/Time Associated Diagnosis Comments COMPREHENSIVE METABOLIC PANEL Routine 01/01/2024 3:43 PM CDT Essential hypertension MAMMO BILAT SCREENING Routine 01/01/2023 Screening mammogram for breast cancer HEPATITIS C ANTIBODY Routine 01/05/2020 2:19 PM [employer] Need for hepatitis C screening test ENDOSCOPY, [...] - 01/02/2024 9:13 AM CDT Performed at: [address] [place] [id number] Jig Builder Helper: Dejon Mcgee PhD, Phone: [phone] Tutu Baron DO LAB - CHEMISTRY [facility] INSURANCE BILL [address] [place] [address] * MAMMO BILAT SCREENING (01/01/2023) Anatomical Region Laterality Modality Breast Bilateral Mammography 01/01/2023 Tutu aBron DO MAMMO ORDERABLES * HEPATITIS C ANTIBODY (01/05/2020 2:19 PM [employer]) Hepatitis C Antibody Non Reactive Non Reactive [facility] ACCOUNT BILL Comment: Non Reactive - Antibodies to Hepatitis C virus (HCV) were no t detected, result does not exclude early acute HCV infection. Blood BLOOD SPECIMEN / Unknown 01/05/2020 2:19 PM [employer] 01/05/2020 Narrative Resulting Agency Comment Lab Testing performed at: [address] [id number] Gabriela Lenz MD LAB - CHEMISTRY [facility] ACCOUNT BILL [address] [place] [address] * ENDOSCOPY, COLON, SCREENING (10/27/2015) Bam Acosta MD GI PROCEDURE ORDERAB LES * DEXA BONE DENSITY 2 SITES (10/12/2009) Anatomical Region Laterality Modality Other Bam Acosta MD DEXA ORDERABLES from Last 3 Months or Most Recently Relevant to Health Maintenance Administered Medications Care Teams Linen Manager Relationship Specialty Start Date End Date Tutu Baron DO [address] [place] [address] PCP - General Internal Medicine 08/25/21 Shannon Poon MD 10/16/09 Mahesh Duke MD [address] [address] 10/16/09 Adonay Lopez MD [address] [address] Ophthalmology 03/26/13 Krista Tubbs MD [address] [place] [address] Physical Medicine and Rehabilitation 09/09/14 Manjinder Torres MD [address] [place] [phone] Obstetrics and Gynecology 02/07/19 Cassidy Guerrero DO [address] [facility] [address] [place] [address] Cardiovascular Disease 07/25/21
--- OUTSIDE RECORDS SUMMARY | 2024-04-18 15:19 | XMS_ITS | Encounter Summary ---
Author Organization [facility] Address 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 Gender Identity Not on file Sexual Orientation Not on file documented as of this encounter Plan of Treatment Not on file documented as of this encounter Procedures Procedure Name Priority Date/Time Associated Diagnosis Comments MAMMO SCREEN BILAT W OR WO CAD Routine 06/26/2007 10:31 AM CDT documented in this encounter Results * MAMMO DIGITAL SCREEN BILAT (06/26/2007 10:31 AM CDT) Anatomical Region Laterality Modality Breast Bilateral Other 06/26/2007 10:3 1 AM CDT Narrative 06/27/2007 7:51 AM CDT [address] [address] [place], [place] [address] Admit Date: 06/26/2007 DARIO MOSELEY Sex: F Admit Prov: ROGER GARCIA Date: 1955 Primary Care Prov: BAM ACOSTA CMRN: [id number] Room: DINORAHPipo N: [id number] IMAGING SERVICES Ordering Prov: ROGER GARCIA Accession Number: [id number] Interpretation BILATERAL SCREENING DIGITAL MAMMOGRAMS WITH COMPUTER ASSISTED DIAGNOSIS 06/26/2007 Comparison is made to 05/02/04. The films were reviewed using the CAD system. The breast parenchyma has scattered fibroglandular densities. No new dominant masses, suspicious calcifications or areas of parenchymal asymmetry or distortion are identified. Impression: Stable screening mammogram Recommend routine followup Assessment BIRADS: 1-Negative Recommendation: Normal interval follow-up Dictated by: NELL CÁRDENAS Electronically signed by: NELL CÁRDENAS 06/27/2007 07:51 Transcribed: 06/26/2007 20:38 AMK Procedure Note Nell Cárdenas - 06/27/[address] [address] Admit Date: 06/26/2007 DARIO MOSELEY Sex: F Admit Prov: ROGER GARCIA Date: 1955 Primary Care Prov: BAM ACOSTA CMRN: [id number] Room: SAQIB N: [id number] IMAGING SERVICES Ordering Prov: ROGER GARCIA Interpretation BILATERAL SCREENING DIGITAL MAMMOGRAMS WITH COMPUTER ASSISTEDDIAGNOSIS 06/26/2007 Comparison is made to 05/02/04. The films were reviewed using theCAD system. The breast parenchyma has scattered fibroglandulardensities. No new dominant masses, suspicious calcifications or areas ofparenchymal asymmetry or distortion are identified. Impression: Stable screening mammogram Recommend routine followup Assessment BIRADS: 1-Negative Recommendation: Normal interval follow-up Dictated by: NELL CÁRDENAS Electronically signed by: NELL CÁRDENAS 06/27/2007 07:51 Transcribed: 06/26/2007 20:38 AMK Roger Garcia MD MAMMO ORDERABLES Final Result documented in this encounter Visit Diagnoses Diagnosis Other screening mammogram documented in this encounter Care Teams Network Security Officer Relationship Specialty Start Date End Date Bam Acosta MD PCP - General 02/19/15 documented as of this encounter
--- OUTSIDE RECORDS SUMMARY | 2024-04-18 15:19 | XMS_ITS | Encounter Summary ---
Author Organization [facility] Address 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
--- OUTSIDE RECORDS SUMMARY | 2024-04-18 15:19 | XMS_ITS | Patient Health Summary ---
Author Organization [facility] Address [address] [place] [address] Care Team Providers Care Nursing Education Specialist Name Role Phone Shannon Poon MD Unavailable UnavailMahesh Hampton MD Unavailable [phone] Adonay Lopez MD Unavailable Unavailable Krista Tubbs MD Unavailable [phone] Manjinder Torres MD Unavailable Cassidy Guerrero DO Unavailable [phone] Tutu Baron DO Primary Care Provider [phone] Note from [facility],non-owned Affiliates and Associated Physician Practices is amultiple site organization consisting of ambulatory clinics and hospital sitesin [place], [place], [place] and [place]. This disclosure is being madepursuant to the Care Everywhere program and may not contain all information available regarding this patient. Last updated 17.[facility] Allergies * Ami-Christopher(Intolerant) * Buspirone Hcl(Insomnia) * Buspirone(Other) * Lidocaine Hcl(Other) * Flu Virus Vaccine(Other),Inactive Medications * Be aware that medications may not be up to date on this document. Alwaysverify current medications with the patient. * ADVIL 200 MG TABS Take 2 (two) tablets by mouth as needed for Pain Reported on 01/18/2016 * ZYRTEC 10 MG TABS Take 1 (one) tablet by mouth at bedtime * Vitamin D 1000 UNIT CAPS Take 1 (one) capsule by mouth once daily * famotidine (PEPCID) 20 MG tablet Take 1 (one) tablet by mouth 2 times daily * Multiple Vitamins-Minerals (MULTIVITAMIN GUMMIES WOMENS) CHEW Take 2 Each by mouth at bedtime * fluticasone propionate (FLONASE) 50 MCG/ACT nasal spray [place] 2 (two) sprays into the nose once daily * bifantis (ALIGN) capsule Take 1 (one) capsule by mouth once daily * Other Take 2 Each by mouth once daily inulin (FIBER GUMMIES ORAL) * ALBUTEROL SULFATE IN Take 2 puffs every 4hrs as needed * atenolol (Tenormin) 25 MG tablet(Started 08/06/2023) Take 1 (one) tablet by mouth at bedtime 3 refills by 08/05/2024 * bismuth subsalicylate (Pepto-Bismol Max Strength) 525 MG/15ML suspension Take 15 mL by mouth every 1 hour as needed for Diarrhea or Nausea/Vomiting * acetaminophen (TYLENOL) 500 MG tablet Take 1 (one) tablet by mouth every 4 hours as needed for Fever or Pain Maximum allowable Acetaminophen amount = 4 Grams (4000 mg) / 24 hours. * rosuvastatin (Crestor) 20 MG tablet(Started 04/01/2024) TAKE 1 TABLET BY MOUTH DAILY 3 refills by 04/01/2025 * triamterene-hydroCHLOROthiazide (Dyazide) 37.5-25 MG capsule(Started 04/01/2024) TAKE 1 CAPSULE BY MOUTH DAILY 3 refills by 04/01/2025 Ended Medications* rosuvastatin (Crestor) 20 MG tablet(Started 07/11/2023) (Discontinued) Take 1 (one) tablet by mouth once daily 3 refills by 07/10/2024 * triamterene-hydroCHLOROthiazide (Dyazide) 37.5-25 MG capsule(Started 07/11/2023) (Discontinued) Take 1 (one) capsule by mouth once daily 3 refills by 07/10/2024 Active Problems Problem Noted Date Diagnosed Date Rectocele 12/29/2022 PSVT (paroxysmal supraventricular tachycardia) 1 Pain associated with defecation 01/05/2021 Status post tonsillectomy 08/11/2019 Age-related osteoporosis wit hout current pathological fracture 05/06/2019 Menopausal symptoms 02/07/2019 Hyperlipidemia 12/27/2016 Essential hypertension 01/18/2016 Degeneration of cervical intervertebral disc Fear of hypodermic needles 01/04/2010 LPRD (laryngopharyngeal reflux disease) 10/13/19 10 Vitamin D deficiency 01/13/2009 Hx of Mitral Insufficiency 04/17/2008 Hx of Tricuspid Insufficiency 04/17/2008 Allergic rhinitis [...] scanned report 04/07/201304/2019 Chest pain 04/17/2008 12/09/2021 Possible Mild Pulmonary Hypertension 04/17/2008 09/07/2009 Immunizations * COVID MODERNA 12+ yr 50mcg/0.5mL(Given 11/09/2023, 05/09/2023, 11/24/2022) * COVID MODERNA BIVALENT 12Y+ 50MCG/0.5ML(Given 06/25/2022, 11/11/2021) * Covid Moderna booster monovalent 6y-11yr 0.5ml(Given 11/09/2023, 11/24/2022, 06/25/2022) * Covid Moderna primary monovalent 12+ yr 0.5mL(Given 01/11/2021, 11/11/2020, 05/11/2020, 04/08/2020) * HepB Unspecified formulation(Given 07/14/2010, 02/11/2010, 01/04/2010) * INFLUENZA VACCINE(Given 12/11/2023, 12/07/2022, 12/20/2021, 12/04/2020, 12/05/2019) * INFLUENZA VACCINE, HIGH-DOSE, QUADR. (FLUZONE HIGH-DOSE QUADRIVALENT; 65Y+), 0.7 ML (HD-IIV4)(Given 12/07/2022, 12/20/2021, 12/07/2020) * INFLUENZA VACCINE, HIGH-DOSE, TRIV. (FLUZONE HIGH-DOSE TRIVALENT; 65Y+) (HD-IIV3)(Given 12/11/2023) * INFLUENZA VACCINE, QUADR. (FLUZONE; FLULAVAL; FLUARIX; AFLURIA QUADRIVALENT; 6MO+), 0.5 ML (IIV4)(Given 12/05/2019) * MODERNA SARS-COV-2 COVID-19 VACCINE 0.25ML(Given 06/13/2021) * PNEUMOCOCCAL PPSV23(Given 08/12/2019, 02/02/2001) * Pneumococcal Pcv13 Conj(Given 08/01/2018) * RSV AREXVY 60YR+ 0.5ML(Given 10/30/2022) * TD VACCINE(Given 02/02/1999, 02/02/1989) * TDAP (7yrs+)(Given 08/01/2018, 05/05/2008) * ZOSTER VACCINE, LIVE(Given 07/02/2013) * Zoster Hzv Vacc Recombinant Inj Im(Given 01/31/2019, 11/22/2018) Social History Tobacco Use Types Packs/Day Years [...] Comments Blood Pressure 118/66 01/10/2024 11:20 AM [employer] Pulse 76 01/10/2024 11:20 AM [employer] Temperature 36.8 C (98.2 F) 01/01/2024 3:06 PM CDT Respiratory Rate 18 06/08/2020 11:59 AM CDT Oxygen Saturation 98% 01/01/2024 3:06 PM CDT Inhaled Oxygen Concentration - - Weight 77.3 kg (170 lb 6.4 oz) 01/10/2024 11:20 AM [employer] Height 160 cm (5' 3 ) 01/01/2024 3:06 PM CDT Body Mass Index 30.19 01/01/2024 3:06 PM CDT Procedures * VITAMIN D 25-HYDROXY(Performed 01/01/2024) Performed for Vitamin D deficiency * LIPID PROFILE REFLEX LDL DIRECT(Performed 01/01/2024) Performed for Pure hypercholesterolemia * COMPREHENSIVE METABOLIC PANEL(Performed 01/01/2024) Performed for Essential hypertension * CBC W/O DIFFERENTIAL(Performed 01/01/2024) Performed for Essential hypertension * VITAMIN D 25-HYDROXY(Performed 01/03/2023) Performed for Vitamin D deficiency * LIPID PROFILE REFLEX LDL DIRECT(Performed 01/03/2023) Performed for Pure hypercholesterolemia * COMPREHENSIVE METABOLIC PANEL(Performed 01/03/2023) Performed for Essential hypertension * CBC W/O DIFFERENTIAL(Performed 01/03/2023) Performed for Essential hypertension * MAMMO BILAT SCREENING(Performed 01/01/2023) Performed for Screening mammogram for breast cancer * XR ANKLE LEFT 3VW OR MORE(Performed 07/05/2022) Performed for Chronic pain of left ankle * MAMMOGRAM(Performed 12/30/2021) * VITAMIN D 25-HYDROXY(Performed 12/09/2021) Performed for Vitamin D deficiency * LIPID PROFILE REFLEX LDL DIRECT(Performed 12/09/2021) Performed for Pure hypercholesterolemia * COMPREHENSIVE METABOLIC PANEL(Performed 12/09/2021) Performed for Essential hypertension * CBC W/O DIFFERENTIAL(Performed 12/09/2021) Performed for Essential hypertension * EVENT MONITOR(Performed 08/26/2021) Performed for Palpitations, Essential hypertension with goal blood pressure less than 130/80, Pure hypercholesterolemia * ECHOCARDIOGRAM 2D WITH DOPPLER(Performed 08/25/2021) Performed for Palpitations, Essential hypertension with goal blood pressure less than 130/80 * EKG 12-LEAD(Performed 07/08/2021) Performed for Palpitations * TSH REFLEX FREE T4(Performed 01/05/2021) Performed for Essential hypertension with goal blood pressure less than 130/80 * CBC W AUTO DIFFERENTIAL(Performed 01/05/2021) Performed for Essential hypertension with goal blood pressure less than 130/80 * MICROALB/CREAT RATIO URINE RANDOM PANEL(Performed 01/05/2021) Performed for Essential hypertension with goal blood pressure less than 130/80 * COMPREHENSIVE METABOLIC PANEL(Performed 01/05/2021) Performed for Essential hypertension with goal blood pressure less than 130/80 * LIPID PROFILE REFLEX LDL DIRECT(Performed 01/05/2021) Performed for Essential hypertension with goal blood pressure less than 130/80 * URINALYSIS MICROSCOPIC ONLY REFLEXED(Performed 01/05/2020) Performed for Urge incontinence of urine * HEPATITIS C ANTIBODY(Performed 01/05/2020) Performed for Need for hepatitis C screening test * URINALYSIS REFLEX MICROSCOPIC REFLEX CULTURE(Performed 01/05/2020) Performed for Urge incontinence of urine * CBC W AUTO DIFFERENTIAL(Performed 01/05/2020) Performed for Hyperlipidemia, unspecified hyperlipidemia type, Essential hypertension with goal blood pressure less than 130/80 * TSH REFLEX FREE T4(Performed 01/05/2020) Performed for Hyperlipidemia, unspecified hyperlipidemia type, Essential hypertension with goal blood pressure less than 130/80 * MICROALB/CREAT RATIO URINE RANDOM PANEL(Performed 01/05/2020) Performed for Hyperlipidemia, unspecified hyperlipidemia type, Essential hypertension with goal blood pressure less than 130/80 * COMPREHENSIVE METABOLIC PANEL(Performed 01/05/2020) Performed for Hyperlipidemia, unspecified hyperlipidemia type, Essential hypertension with goal blood pressure less than 130/80 * LIPID PROFILE REFLEX LDL DIRECT(Performed 01/05/2020) Performed for Hyperlipidemia, unspecified hyperlipidemia type, Essential hypertension with goal blood pressure less than 130/80 * URINALYSIS REFLEX TO MICROSCOPIC NO CULTURE(Performed 01/18/2019) Performed for Essential hypertension with goal blood pressure less than 130/80, Hyperlipidemia, unspecified hyperlipidemia type * LIPID PROFILE REFLEX LDL DIRECT(Performed 01/18/2019) Performed for Essential hypertension with goal blood pressure less than 130/80, Hyperlipidemia, unspecified hyperlipidemia type * COMPREHENSIVE METABOLIC PANEL(Performed 01/18/2019) Performed for Essential hypertension with goal blood pressure less than 130/80, Hyperlipidemia, unspecified hyperlipidemia type * CBC W AUTO DIFFERENTIAL(Performed 01/18/2019) Performed for Essential hypertension with goal blood pressure less than 130/80, Hyperlipidemia, unspecified hyperlipidemia type * URINALYSIS MICROSCOPIC ONLY REFLEXED(Performed 01/22/2018) Performed for Hyperlipidemia, unspecified hyperlipidemia type, Well adult exam * URINALYSIS REFLEX TO MICROSCOPIC NO CULTURE(Performed 01/22/2018) Performed for Hyperlipidemia, unspecified hyperlipidemia type, Well adult exam * VITAMIN D 25-HYDROXY(Performed 01/22/2018) Performed for Vitamin D deficiency, Well adult exam * LIPID PROFILE REFLEX LDL DIRECT(Performed 01/22/2018) Performed for Hyperlipidemia, unspecified hyperlipidemia type, Well adult exam * CBC W AUTO DIFFERENTIAL(Performed 01/22/2018) Performed for Essential hypertension with goal blood pressure less than 130/80, Well adult exam * COMPREHENSIVE METABOLIC PANEL(Performed 01/22/2018) Performed for Essential hypertension with goal blood pressure less than 130/80, Well adult exam * MAMMOGRAPHY ORDER(Performed 04/13/2017) * URINALYSIS MICROSCOPIC ONLY REFLEXED(Performed 12/28/2016) Performed for Essential hypertension with goal blood pressure less than 130/80 * VITAMIN D 25-HYDROXY(Performed 12/28/2016) Performed for Vitamin D deficiency * URINALYSIS REFLEX TO MICROSCOPIC NO CULTURE(Performed 12/28/2016) Performed for Essential hypertension with goal blood pressure less than 130/80 * LIPID PROFILE REFLEX LDL DIRECT(Performed 12/28/2016) Performed for Hyperlipidemia, unspecified hyperlipidemia type * CBC W AUTO DIFFERENTIAL(Performed 12/28/2016) Performed for Essential hypertension with goal blood pressure less than 130/80 * COMPREHENSIVE METABOLIC PANEL(Performed 12/28/2016) Performed for Essential hypertension with goal blood pressure less than 130/80 * URINALYSIS REFLEX TO MICROSCOPIC NO CULTURE(Performed 07/06/2016) Performed for Hematuria * CULTURE URINE(Performed 07/06/2016) Performed for Hematuria * MRI CERVICAL SPINE WO CONTRAST(Performed 01/07/2016) Performed for Cervical radiculopathy * XR CERVICAL SPINE 4 OR 5VW(Performed 12/27/2015) Performed for Neck pain * URINALYSIS MICROSCOPIC ONLY REFLEXED(Performed 12/17/2015) Performed for Essential hypertension with goal blood pressure less than 130/80 * URINALYSIS REFLEX TO MICROSCOPIC NO CULTURE(Performed 12/17/2015) Performed for Essential hypertension with goal blood pressure less than 130/80 * VITAMIN D 25-HYDROXY(Performed 12/17/2015) Performed for Vitamin D deficiency * LIPID PROFILE REFLEX LDL DIRECT(Performed 12/17/2015) Performed for Essential hypertension with goal blood pressure less than 130/80, Hyperlipidemia, unspecified hyperlipidemia type * CBC W AUTO DIFFERENTIAL(Performed 12/17/2015) Performed for Essential hypertension with goal blood pressure less than 130/80 * COMPREHENSIVE METABOLIC PANEL(Performed 12/17/2015) Performed for Essential hypertension with goal blood pressure less than 130/80, Hyperlipidemia, unspecified hyperlipidemia type * ENDOSCOPY, COLON, SCREENING(Performed 10/27/2015) * MAMMOGRAPHY ORDER(Performed 04/09/2015) * URINALYSIS REFLEX TO MICROSCOPIC NO CULTURE(Performed 01/14/2015) Performed for Unspecified essential hypertension * VITAMIN D 25-HYDROXY(Performed 01/14/2015) Performed for Unspecified vitamin D deficiency * LIPID PROFILE W LDL/HDL RATIO(Performed 01/14/2015) Performed for Hyperlipidemia * CBC W AUTO DIFFERENTIAL(Performed 01/14/2015) Performed for Unspecified essential hypertension * COMPREHENSIVE METABOLIC PANEL(Performed 01/14/2015) Performed for Unspecified essential hypertension * URINALYSIS MICROSCOPIC ONLY REFLEXED(Performed 11/13/2013) Performed for Unspecified essential hypertension * URINALYSIS REFLEX TO MICROSCOPIC NO CULTURE(Performed 11/13/2013) Performed for Unspecified essential hypertension * LIPID PROFILE W LDL/HDL RATIO(Performed 11/13/2013) Performed for Hyperlipidemia * CBC W AUTO DIFFERENTIAL(Performed 11/13/2013) Performed for Unspecified essential hypertension * COMPREHENSIVE METABOLIC PANEL(Performed 11/13/2013) Performed for Unspecified essential hypertension * XR ELBOW LEFT 3VW OR MORE(Performed 10/17/2012) Performed for Elbow pain * URINALYSIS MICROSCOPIC ONLY REFLEXED(Performed 10/11/2012) Performed for Unspecified Essential Hypertension * URINALYSIS REFLEX TO MICROSCOPIC NO CULTURE(Performed 10/11/2012) Performed for Unspecified Essential Hypertension * VITAMIN D 25-HYDROXY(Performed 10/11/2012) Performed for Unspecified Vitamin D Deficiency * LIPID PROFILE W LDL/HDL RATIO(Performed 10/11/2012) Performed for Hyperlipidemia * CBC W AUTO DIFFERENTIAL(Performed 10/11/2012) Performed for Unspecified Essential Hypertension * COMPREHENSIVE METABOLIC PANEL(Performed 10/11/2012) Performed for Unspecified Essential Hypertension * LIPID PROFILE W LDL/HDL RATIO(Performed 09/18/2011) Performed for Hyperlipidemia * COMPREHENSIVE METABOLIC PANEL(Performed 09/18/2011) Performed for Hyperlipidemia * URINALYSIS MICROSCOPIC ONLY REFLEXED(Performed 09/18/2011) Performed for Unspecified essential hypertension * URINALYSIS REFLEX TO MICROSCOPIC NO CULTURE(Performed 09/18/2011) Performed for Unspecified essential hypertension * MAMMO BILAT SCREENING(Performed 08/25/2011) * LIPID PROFILE(Performed 01/17/2011) Performed for Hyperlipidemia * COMPREHENSIVE METABOLIC PANEL(Performed 01/17/2011) Performed for Hyperlipidemia * MAMMO BILAT SCREENING(Performed 07/18/2010) * ALT(Performed 05/18/2010) Performed for Hyperlipidemia * LIPID PROFILE(Performed 05/18/2010) Performed for Hyperlipidemia * XR ANKLE RIGHT 3VW OR MORE(Performed 03/29/2010) * URINE MICROSCOPIC ONLY(Performed 02/23/2010) Performed for Hyperlipidemia, Unspecified essential hypertension * URINALYSIS REFLEX TO MICROSCOPIC NO CULTURE(Performed 02/23/2010) Performed for Hyperlipidemia, Unspecified essential hypertension * CBC W AUTO DIFFERENTIAL(Performed 02/23/2010) Performed for Hyperlipidemia, Unspecified essential hypertension * VITAMIN D 25-HYDROXY(Performed 02/23/2010) Performed for Unspecified vitamin D deficiency * BASIC METABOLIC PANEL (CALCIUM TOTAL)(Performed 02/23/2010) Performed for Hyperlipidemia, Unspecified essential hypertension * ALT(Performed 02/23/2010) Performed for Hyperlipidemia, Unspecified essential hypertension * LIPID PROFILE(Performed 02/23/2010) Performed for Hyperlipidemia, Unspecified essential hypertension * SKIN TEST PPD - POINT OF CARE(Performed 01/13/2010) Performed for Screening examination for pulmonary tuberculosis * SKIN TEST PPD - POINT OF CARE(Performed 01/06/2010) Performed for Need for hepatitis vaccination * MEASLES/MUMPS/RUBELLA IMMUNITY(Performed 01/04/2010) Performed for Immunity status testing * VARICELLA ZOSTER ANTIBODY IGG(Performed 01/04/2010) Performed for Immunity status testing * DEXA BONE DENSITY 2 SITES(Performed 10/12/2009) * FL ESOPHAGRAM(Performed 10/08/2009) Performed for Dysphagia * CARDIAC ECHOCARDIOGRAM COMPLETE ORDER(Performed 08/30/2009) * VITAMIN D 25-HYDROXY(Performed 06/03/2009) Performed for Unspecified Essential Hypertension, Hyperlipidemia, Unspecified Vitamin D Deficiency * BASIC METABOLIC PANEL (CALCIUM TOTAL)(Performed 06/03/2009) Performed for Unspecified Essential Hypertension, Hyperlipidemia, Unspecified Vitamin D Deficiency * LIPID PROFILE W LDL/HDL RATIO(Performed 06/03/2009) Performed for Unspecified Essential Hypertension, Hyperlipidemia, Unspecified Vitamin D Deficiency * ALT(Performed 06/03/2009) Performed for Unspecified Essential Hypertension, Hyperlipidemia, Unspecified Vitamin D Deficiency * URINE MICROSCOPIC ONLY(Performed 09/08/2008) * URINALYSIS REFLEX TO MICROSCOPIC NO CULTURE(Performed 09/08/2008) * VITAMIN D 25-HYDROXY(Performed 09/08/2008) Performed for Htn, Hyperlipidemia * LIPID PROFILE W LDL/HDL RATIO(Performed 09/08/2008) Performed for Htn, Hyperlipidemia * COMPREHENSIVE METABOLIC PANEL(Performed 09/08/2008) Performed for Htn, Hyperlipidemia * ALT(Performed 01/17/2008) * VITAMIN D 25-HYDROXY(Performed 01/17/2008) * LIPID PROFILE(Performed 01/17/2008) * ENDOSCOPY, COLON, SCREENING(Performed 11/01/2005) Results * LIPID PROFILE REFLEX LDL DIRECT (01/01/2024 3:43 PM CDT) Only the most recent of9 resultswithin the time period is included. Cholesterol 165 100 - 199 mg/dL [facility] INSURANCE BILL Triglycerides 128 0 - 149 mg/dL [facility] INSURANCE BILL HDL Cholesterol 62 >39 mg/dL [facility] INSURANCE BILL VLDL Calculated 22 5 - 40 mg/dL [facility] INSURANCE BILL LDL Calculated 81 0 - 99 mg/dL [facility] INSURANCE BILL Cholesterol/HDL Ratio 2.7 0.0 - 4.4 ratio [facility] INSURANCE BILL Comment: T. Chol/HDL Ratio Men Women 1/2 Avg.Risk 3.4 3.3 Avg.Risk 5.0 4.4 2X Avg.Risk 9.6 7.1 3X Avg.Risk 23.4 11.0 LDL/HDL Ratio 1.3 0.0 - 3.2 ratio [facility] INSURANCE BILL Comment: LDL/HDL Ratio Men Women 1/2 Avg.Risk 1.0 1.5 Avg.Risk 3.6 3.2 2X Avg.Risk 6.2 5.0 3X Avg.Risk 8.0 6.1 Blood BLOOD SPECIMEN / Unknown 01/01/2024 3:43 PM CDT 01/01/2024 Narrative [facility] INSURANCE BILL - 01/02/2024 10:12 AM CDT Performed at: [facility] - [facility] [address], [place] [id number] Ncr Operator: Dejon Mcgee PhD, Phone: [phone] Tutu Baron DO LAB - CHEMISTRY OSCAR MOLINA [facility] INSURANCE BILL [address] [place] [address] * VITAMIN D 25-HYDROXY (01/01/2024 3:43 PM CDT) Only the most recent of12 resultswithin the time period is included. Vitamin D, 25 Hydroxy 54.2 30.0 - 100.0 ng/mL [facility] INSURANCE BILL Comment: Vitamin D deficiency has been defined by the [place] of Medicine and an Endocrine Society practice guideline as a level of serum 25-OH vitamin D less than 20 ng/mL (1,2). The Endocrine Society went on to further define vitamin D insufficiency as a level between 21 and 29 ng/mL (2). 1. IOM ([place] of [employer]). 2010. Dietary reference intakes for calcium and D. [place]: The National Academies Press. 2. Catrina MF, [place] GRUBER, Luis Daniel OCONNOR, et al. Evaluation, treatment, and prevention of vitamin D deficiency: an Endocrine Society clinical practice guideline. JCEM. 2010; 96(7):1911-30. Blood BLOOD SPECIMEN / Unknown 01/01/2024 3:43 PM CDT 01/01/2024 Narrative [facility] INSURANCE BILL - 01/02/2024 8:19 AM CDT Performed at: - [address] [id number] Ncr Operator: Dejon Mcgee PhD, Phone: [phone] Tutu Baron DO LAB - CHEMISTRY OSCAR MOLINA [facility] INSURANCE BILL [address] [place] [address] * CBC W/O DIFFERENTIAL (01/01/2024 3:43 PM CDT) Only the most recent of3 resultswithin the time period is included. WBC 7.5 3.4 - 10.8 x10E3/uL [facility] INSURANCE BILL RBC 4.65 3.77 - 5.28 x10E6/uL [facility] INSURANCE BILL Hemoglobin 14.2 11.1 - 15.9 g/dL [facility] INSURANCE BILL Hematocrit 42.8 34.0 - 46.6 % [facility] INSURANCE BILL MCV 92 79 - 97 fL [facility] INSURANCE BILL MCH 30.5 26.6 - 33.0 pg [facility] INSURANCE BILL MCHC 33.2 31.5 - 35.7 g/dL [facility] INSURANCE BILL RDW 12.2 11.7 - 15.4 % [facility] INSURANCE BILL Platelet Count 292 150 - 450 x10E3/uL [facility] INSURANCE BILL Blood BLOOD SPECIMEN / Unknown 01/01/2024 3:43 PM CDT 01/01/2024 Narrative [facility] INSURANCE BILL - 01/02/2024 7:12 AM CDT Performed at: 01 - [facility] [address], [place] [id number] Ncr Operator: Dejon Mcgee PhD, Phone: [phone] Tutu Baron DO LAB - HEMATOLOGY ORD ERABLES [facility] INSURANCE BILL [address] [place] [address] * COMPREHENSIVE METABOLIC PANEL (01/01/2024 3:43 PM CDT) Only the most recent of15 resultswithin the time period is included. Glucose 98 70 - 99 mg/dL [facility] [...] 9:13 AM CDT Performed at: 01 - [facility] [id number] [place], [place] [id number] Ncr Operator: Dejon Mcgee PhD, Phone: [phone] Tutu Baron DO LAB - CHEMISTRY OSCAR MOLINA [facility] INSURANCE BILL [address] [place] [address] * MAMMO BILAT SCREENING (01/01/2023) Only the most recent of3 resultswithin the time period is included. Anatomical Region Laterality Modality Breast Bilateral Mammography 01/01/2023 Tutu Baron DO MAMMO ORDERABLES * XR ANKLE LEFT 3VW OR MORE (07/05/2022) Anatomical Region Laterality Modality Lower Extremity Other 07/05/2022 Tutu Baron DO DIAGNOSTIC IMAGING O RDERABLES * MAMMOGRAM (12/30/2021) Anatomical Region Laterality Modality Other 12/30/2021 Narrative 12/30/2021 Ordered by an unspecified provider. Scanned Document SCANNING ONLY * EVENT MONITOR (08/26/2021 6:20 PM CDT) Narrative Adry Riley MA - 08/26/2021 6:20 PM CDT Girma French MD 08/26/2021 6:24 PM [facility] - Event Monitor Name: Elaina Moseley : 1955 Primary care provider: Tutu Baron DO Referring provider: Cassidy Guerrero DO Clinical Indication: Palpitations Findings: 30 day event monitor prescribed for evaluation of palpitations. Monitor was worn for 28 days, 18 hours, 20 minutes starting on July 26, 2021. While monitored, the average heart rate was 67 bpm with low heart rate 50 bpm and high heart rate 156 bpm. There were 92 record events, 85 of which were symptomatic. Reported symptoms included chest pain, but the majority of episodes do not have details of symptoms provided. Responding rhythm strips demonstrated sinus rhythm with and without PACs and atrial runs, as well as episodes of mild sinus tachycardia. There was an autotriggered event as well demonstrating PSVT at 156 bpm for up to 17 seconds duration. Due to event monitor format provided, unable to quantify PACs burden. There were no recorded episodes of atrial fibrillation, heart block, pauses, or ventricular ectopy. Conclusions: 1. Symptomatic episodes corresponding to sinus rhythm with and without PACs and atrial runs 2. 17 seconds episode of PSVT, asymptomatic 3. No recorded episodes of atrial fibrillation, heart block, pauses, or ventricular ectopy Thank you. Please do not hesitate to call if there are any questions. Girma French MD [facility] Office Procedure Note Girma French MD - 08/26/2021 6:20 PM CDT [facility] - Event Monitor Name: Elaina Moseley : 1955 Primary care provider: Tutu Baron DO Referring provider: Cassidy Guerrero DO Clinical Indication: Palpitations Findings: 30 day event monitor prescribed for evaluation of palpitations.Monitor was worn for 28 days, 18 hours, 20 minutes starting on July. While monitored, the average heart rate was 67 bpm with low heart rate 50bpm and high heart rate 156 bpm. There were 92 record events, 85 of which were symptomatic. Reportedsymptoms included chest pain, but the majority of episodes do not havedetails of symptoms provided. Responding rhythm strips demonstrated sinusrhythm with and without PACs and atrial runs, as well as episodes of mildsinus tachycardia. There was an autotriggered event as well demonstrating PSVT at 156 bpm forup to 17 seconds duration. Due to event monitor format provided, unable to quantify PACs burden. There were no recorded episodes of atrial fibrillation, heart block,pauses, or ventricular ectopy. Conclusions: 1. Symptomatic episodes corresponding to sinus rhythm with and withoutPACs and atrial runs 2. 17 seconds episode of PSVT, asymptomatic 3. No recorded episodes of atrial fibrillation, heart block, pauses, orventricular ectopy Thank you. Please do not hesitate to call if there are any questions. Girma French MD [facility] Office Cassidy Guerrero DO CARDIAC SERVICES OR DERABLES * ECHOCARDIOGRAM 2D WITH DOPPLER (08/25/2021 12:47 PM CDT) 08/25/2021 12:4 7 PM CDT Narrative Procedure Note Bam Martinez MD - 08/25/2021 . [facility] [address] [place] [address] Echocardiography Examination Transthoracic Name: ELAINA MOSELEY [facility]#: MR#: [id number] Admission Number: [id number] Study Date: 08/25/2021 Study Time: 01:10 PM Date Of : 1955 Age: 66 years Height: 63 in. (160.0 cm) Weight: 153 lbs. (69.40 kg) BSA: 1.73 m2 Gender: Female Blood Pressure: 130 mmHg / 72 mmHg Heart Rate: Exam Details Procedure Ordered: ECHOCARDIOGRAM 2D W/DOPPLER Procedure Components: Complete 2D, M-mode, complete spectral Doppler, color Doppler Procedure Status: Routine study Facility Location: [facility] [place] Indication: Palpitations Procedure Marble Machine Tender: Princess Delgado RDCS Ordering Provider: Cassidy Guerrero DO Reading Physician: BAM MARTINEZ MD Conclusions Left Ventricle: Left ventricle is normal in size. Normal global systolic left ventricular function. EF range is 70 % -75 %. Left ventricle wall thickness is normal. There are no regional wall motion abnormalities. Left ventricular diastolic function parameters are normal. Tricuspid Valve Measurements RVSP: 29 mmHg. Follow up: Findings Left Ventricle: Patient: ELAINA MOSELEY Study Date: 08/25/2021 01:10 PM Page 1 of 3 Left ventricle is normal in size. Normal global systolic left ventricular function. EF evaluated by biplane method of disks. Left ventricle wall thickness is normal. There are no regional wall motion abnormalities. Left ventricular diastolic function parameters are normal. Right Ventricle: Normal size right ventricle. Right ventricular wall thickness is normal. Right ventricular systolic function is normal. Pulmonary artery pressure normal. Left Atrium: The left atrium is normal in size. Right Atrium: The right atrium is normal in size. Mitral Valve: Mitral leaflets exhibit normal cuspal separation. Mild mitral regurgitation. No mitral valve stenosis. Aortic Valve: Aortic leaflets exhibit normal cuspal separation. No aortic valve regurgitation. There is no aortic stenosis. Tricuspid Valve: Tricuspid valve leaflets are normal. Mild tricuspid regurgitation. No tricuspid valve stenosis. Pulmonic Valve: Pulmonic leaflets exhibit normal cuspal separation. No pulmonic valve regurgitation is evident. There is no pulmonic valve stenosis. Aorta: The aorta is normal. No dilation of the ascending aorta. The aortic root exhibits normal size. Great Vessels: IVC: The inferior vena cava is normal in size and course. Pericardium: The pericardium is normal in appearance. No pericardial effusion. Measurements Anatomy Label Value Normal Value Aorta AoRoot, 2D 2.8 cm (1.4cm - 2.6cm) Aortic Valve AV Vmean 1.13 m/s Aortic Valve AV VTI 37.47 cm Aortic Valve AV PGmax 10 mmHg Aortic Valve AV PGmean 6 mmHg Aortic Valve AV Vmax, Curve 1.59 m/s (1m/s - 1.7m/s) Aortic Valve LVOT VTI / AV VTI 0.65 Aortic Valve JED D (continuity eq. VTI) 2 cm Aortic Valve JED Index (continuity 1.16 cm /m eq.Vmax) Aortic Valve LVOT Vmax / AV Vmax 0.64 Interventricular septum IVSd, 2D 0.9 cm (0.6cm - 1.1cm) Left Atrium LADs, 2D 3 cm (2.7cm - 3.8cm) Left Atrium LA Area s, A4C 17.3 cm (0cm - 20cm ) Left Atrium LA Area s, A2C 15.8 cm (0cm - 20cm ) Left Atrium LAESV, MOD4 46 ml (22ml - 52ml) Left Atrium LAESV, MOD2 41 ml (22ml - 52ml) Left Atrium LAESV index, MOD4 26.6 ml/m Left Atrium LAESV index, MOD2 23.7 ml/m Left Atrium LAESV index, AL4 28.3 ml/m Left Atrium LAESV index, AL2 24.9 ml/m Left Ventricle LVOT Vmax 1.02 m/s (0.7m/s - 1.1m/s) Patient: ELAINA MOSELEY Study Date: 08/25/2021 01:10 PM Page 2 of 3 Left Ventricle LVOTd 2 cm (1.8cm - 2cm) Left Ventricle LVOT VTI 24.31 cm (18cm - 22cm) Left Ventricle LVOT PGmax 4 mmHg Left Ventricle LVDd, 2D 4.2 cm (3.7cm - 5.2cm) Left Ventricle LVDs, 2D 2.1 cm (2.2cm - 3.5cm) Left Ventricle LVPWd, 2D 0.9 cm (0.6cm - 0.9cm) Left Ventricle FS, 2D 50 % Left Ventricle LVOT PGmean 2 mmHg Left Ventricle LVOT Vmean 0.74 m/s Left Ventricle EF lower range (%) 70 % Left Ventricle EF upper range (%) 75 % Left Ventricle Diastolic MV E Vmax 0.96 m/s Function Left Ventricle Diastolic MV A Vmax 0.85 m/s Function Left Ventricle Diastolic MV E/A 1.13 Function Left Ventricle Diastolic MV E/E' lateral 10.92 Function Left Ventricle Diastolic MV E/E' septal 13.17 (0.45 - 1.25) Function Left Ventricle Diastolic MV DT 237 ms Function Left Ventricle Diastolic MV E' septal 0.07 m/s Function Left Ventricle Diastolic MV E' lateral 0.09 m/s Function Left Ventricle Diastolic MV E/E' mean 12 Function Left Ventricle Diastolic MV E' mean 0.08 m/s Function Mitral Valve MVA PHT 3.2 cm Mitral Valve MV PHT 69 ms Mitral Valve MV Dec [place] 4.03 m/s Pulmonic Valve PV PGmax 4 mmHg Pulmonic Valve PV Vmax, [place] 0.95 m/s (0.6m/s - 0.9m/s) Right Ventricle Diastolic TR Pmax 26 mmHg Function Tricuspid Valve RVSP 29 mmHg Tricuspid Valve RA Pressure 3 mmHg Tricuspid Valve TR Vmax 2.56 m/s (No Signature Object) Patient: ELAINA MOSELEY Study Date: 08/25/2021 01:10 PM Page 3 of 3 Cassidy Guerrero DO ECHO ORDERABLES Performing Organization Address City/[facility] Co de Phone Number [facility] CCW [address] [place] [phone] * EKG 12-LEAD (07/08/2021) Gabriela Lenz MD ECG ORDERABLES * TSH REFLEX FREE T4 (01/05/2021 2:50 PM CDT) Only the most recent of2 resultswithin the time period is included. [facility] TSH 1.688 0.350 - 4.940 uIU/mL [facility] ACCOUNT BILL Blood BLOOD SPECIMEN / Unknown 01/05/2021 2:50 PM CDT 01/05/2021 Narrative Resulting Agency Comment Lab Testing performed at: [facility] [address] [place] [address] [phone] Gabriela Lenz MD LAB - [facility]Y [facility] Performing Organization Address City/[facility] Co de Phone Number [facility] ACCOUNT BILL [address] [place] [address] * MICROALB/CREAT RATIO URINE RANDOM PANEL (01/05/2021 2:49 PM CDT) Only the most recent of2 resultswithin the time period is included. [facility] Creatinine Urine 24.84 mg/dL [facility] ACCOUNT BILL Microalbumin Urine <0.5 mg/dL [facility] ACCOUNT BILL Microalbumin/Cre atinine Ratio NOT NEEDED mg/g [facility] ACCOUNT BILL Comment: Unable to calculate result since non-numeric result obtained for component test. Ancillary determined the test is not needed. Urine URINE SPECIMEN OBTAINED BY CLEAN CATCH PROCEDURE / Unknown 01/05/2021 2:49 PM CDT 01/05/2021 Narrative Resulting Agency Comment Lab Testing performed at: [facility] [address] [facility] [phone] Gabriela Lenz MD LAB - URINE CHEMISTR Y ORDERABLES [facility] ACCOUNT BILL [address] [place] [address] * (ABNORMAL) CBC WITH DIFFERENTIAL (01/05/2021 2:49 PM CDT) Only the most recent of10 resultswithin the time period is included. WBC 7.6 4.4 - 10.7 x10E9/L [facility] ACCOUNT BILL RBC 4.82 3.80 - 5.20 x10E12/L [facility] ACCOUNT BILL Hemoglobin 14.9 12.0 - 15.6 gm/dL [facility] ACCOUNT BILL Hematocrit 43.7 35.9 - 45.5 % [facility] ACCOUNT BILL MCV 90.7 80.7 - 98.3 fl [facility] ACCOUNT BILL MCH 30.9 26.7 - 34.0 pg [facility] ACCOUNT BILL MCHC 34.1 30.8 - 35.9 gm/dL [facility] ACCOUNT BILL RDW 11.9(L) 12.1 - 14.9 % [facility] ACCOUNT BILL Platelet Count 282 153 - 416 x10E9/L [facility] ACCOUNT BILL Comment:MPV FL BLOOD ([facility] [place]) 9 .5 fl 9.4-12.9 Granulocytes % 63.7 44.0 - 73.0 % [facility] ACCOUNT BILL Lymphocytes % 27.8 20.0 - 43.0 % [facility] ACCOUNT BILL Monocytes % 7.3 5.0 - 13.0 % [facility] ACCOUNT BILL Eosinophils % 0.5 0.0 - 6.0 % [facility] ACCOUNT BILL Basophils % 0.4 0.0 - 2.0 % [facility] ACCOUNT BILL Granulocytes Absolute 4.81 2.01 - 7.14 x10E9/L [facility] ACCOUNT BILL Lymphocytes Absolute 2.10 1.07 - 3.94 x10E9/L [facility] ACCOUNT BILL Monocytes Absolute 0.55 0.26 - 1.07 x10E9/L [facility] ACCOUNT BILL Eosinophils Absolute 0.04 0 - 0.47 x10E9/L [facility] ACCOUNT BILL Basophils Absolute 0.03 0 - 0.08 x10E9/L [facility] ACCOUNT BILL Immature Granulocytes 0.3 0 - 1 % [facility] ACCOUNT BILL Immature Granulocytes Absolute 0.02 0.00 - 0.06 x10E9/L [facility] ACCOUNT BILL nRBC 0 /100 WBC [facility] ACCOUNT BILL Blood BLOOD SPECIMEN / Unknown 01/05/2021 2:49 PM CDT 01/05/2021 Narrative Resulting Agency Comment Lab Testing performed at: [facility] [address] [place] [address] [phone] Gabriela Lenz MD LAB - HEMATOLOGY ORD ERABLES [facility] ACCOUNT BILL [address] [place] [address] * URINALYSIS MICROSCOPIC ONLY REFLEXED (01/05/2020 2:19 PM COMPETITIVE SHOPPER) Only the most recent of7 resultswithin the time period is included. WBC UA 0-5 0 - 5 /hpf [facility] ACCOUNT BILL RBC UA None seen 0 - 2 /hpf [facility] ACCOUNT BILL Epithelial Cells (non renal) 0-10 0 - 10 /hpf [facility] ACCOUNT BILL Epithelial Cells (renal) NOT NEEDED [facility] ACCOUNT BILL Comment:Ancillary determined the test is not needed. Casts ua NOT NEEDED [facility] ACCOUNT BILL Comment:Ancillary determined the test is not needed. Casts UA NOT NEEDED [facility] ACCOUNT BILL Comment:Ancillary determined the test is not needed. Crystals UA NOT NEEDED [facility] ACCOUNT BILL Comment:Ancillary determined the test is not needed. Crystals UA NOT NEEDED [facility] ACCOUNT BILL Comment:Ancillary determined the test is not needed. Mucus UA Present Not Estab. /LPF [facility] ACCOUNT BILL Bacteria UA None seen None seen/Few [facility] ACCOUNT BILL Yeast UA NOT NEEDED [facility] ACCOUNT BILL Comment:Ancillary determined the test is not needed. Trichomonas UA NOT NEEDED [facility] ACCOUNT BILL Comment:Ancillary determined the test is not needed. Comment Urine NOT NEEDED [facility] ACCOUNT BILL Comment:Ancillary determined the test is not needed. 01/05/2020 2:19 PM COMPETITIVE SHOPPER 01/05/2020 Narrative Resulting Agency Comment Lab Testing performed at: [facility] [address] [facility] [phone] Gabriela Lenz MD LAB - URINALYSIS ORD ERABLES Performing Organization Address [facility] Co de Phone Number [facility] ACCOUNT BILL [address] [place] [address] * URINALYSIS REFLEX MICROSCOPIC REFLEX CULTURE (01/05/2020 2:19 PM COMPETITIVE SHOPPER) Specific [place] UA 1.011 1.005 - 1.030 [facility] ACCOUNT BILL pH UA 7.5 5.0 - 7.5 [facility] ACCOUNT BILL Color UA Yellow Yellow [facility] ACCOUNT BILL Appearance Clear Clear [facility] ACCOUNT BILL Leukocyte UA Negative Negative [facility] ACCOUNT BILL Protein UA Negative Negative/Tra ce [facility] ACCOUNT BILL Glucose UA Negative Negative [facility] ACCOUNT BILL Ketone UA Negative Negative [facility] ACCOUNT BILL Occult Blood Urine Negative Negative [facility] ACCOUNT BILL Bilirubin UA Negative Negative [facility] ACCOUNT BILL Urobilinogen 0.2 0.2 - 1.0 mg/dL [facility] ACCOUNT BILL Nitrite UA Negative Negative [facility] ACCOUNT BILL Microscopic Examination Urine [facility] ACCOUNT BILL Comment:Microscopic follows if indicated. Microscopic Examination Urine See below: [facility] ACCOUNT BILL Comment:Microscopic was cristal cated and was performed. Urinalysis Reflex [facility] ACCOUNT BILL Comment:This specimen will n ot reflex to a Urine Culture. Urine URINE SPECIMEN OBTAINED BY CLEAN CATCH PROCEDURE / Unknown 01/05/2020 2:19 PM COMPETITIVE SHOPPER 01/05/2020 Narrative Resulting Agency Comment Lab Testing performed at: [facility] [place] [address] [facility] [phone] Gabriela Lenz MD LAB - URINALYSIS ORD ERABLES Performing Organization Address City/[facility]/ZIP Co de Phone Number [facility] ACCOUNT BILL [address] [place] [address] * HEPATITIS C ANTIBODY (01/05/2020 2:19 PM COMPETITIVE SHOPPER) Hepatitis C Antibody Non Reactive Non Reactive [facility] ACCOUNT BILL Comment: Non Reactive - Antibodies to Hepatitis C virus (HCV) were no t detected, result does not exclude early acute HCV infection. Blood BLOOD SPECIMEN / Unknown 01/05/2020 2:19 PM COMPETITIVE SHOPPER 01/05/2020 Narrative Resulting Agency Comment Lab Testing performed at: [facility] [address] [facility] [phone] Gabriela Lenz MD LAB - CHEMISTRY OSCAR MOLINA Performing Organization Address City/[facility]/ZIP Co de Phone Number [facility] ACCOUNT BILL [address] [place] [address] * URINALYSIS REFLEX TO MICROSCOPIC NO CULTURE (01/18/2019 9:22 AM COMPETITIVE SHOPPER) Only the most recent of11 resultswithin the time period is included. Specific [place] UA 1.018 1.005 - 1.030 [facility] INSURANCE BILL pH UA 5.5 5.0 - 7.5 [facility] INSURANCE BILL Color UA Yellow Yellow [facility] INSURANCE BILL Appearance Clear Clear [facility] INSURANCE BILL Leukocyte UA Negative Negative [facility] INSURANCE BILL Protein UA Negative Negative/Tra ce [facility] INSURANCE BILL Glucose UA Negative Negative [facility] INSURANCE BILL Ketone UA Negative Negative [facility] INSURANCE BILL Occult Blood Urine Negative Negative [facility] INSURANCE BILL Bilirubin UA Negative Negative [facility] INSURANCE BILL Urobilinogen 0.2 0.2 - 1.0 mg/dL [facility] INSURANCE BILL Nitrite UA Negative Negative [facility] INSURANCE BILL Microscopic Examination Urine [facility] INSURANCE BILL Comment: Microscopic not indicated and not performed. FASTING Urine URINE SPECIMEN OBTAINED BY CLEAN CATCH PROCEDURE / Unknown 01/18/2019 9:22 AM COMPETITIVE SHOPPER 01/18/2019 Narrative Resulting Agency Comment Lab Testing performed at: [facility] [place] [address] [facility] [phone] Bam Acosta MD LAB - URINALYSIS ORD ASAD Performing Organization Address City/[facility]/ZIP Co de Phone Number [facility] INSURANCE BILL [address] [place] [address] * MAMMOGRAPHY ORDER (04/13/2017) Only the most recent of2 resultswithin the time period is included. Anatomical Region Laterality Modality Mammography Scanned Document MAMMO ORDERABLES * CULTURE URINE (07/06/2016 11:47 AM CDT) Urine Culture Routine Final report [facility] ACCOUNT BILL Result 1 [facility] ACCOUNT BILL Comment: Culture shows less than 10,000 colony forming units of bacteria per milliliter of urine. This colony count is not generally considered to be clinically significant. Urine URINE SPECIMEN FROM URINARY BLADDER / Unknown 07/06/2016 11:47 AM CDT 07/06/2016 Narrative Resulting Agency Comment [facility] [address] [facility] [phone] Bam Acosta MD LAB - MICROBIOLOGY O RDERABLES [facility] ACCOUNT BILL [address] [place] [address] * MRI SPINE CERVICAL NON CONTRAST (01/07/2016) Anatomical Region Laterality Modality Pelvis Magnetic Resonan ce Bam Acosta MD MR ORDERABLES * XR CERVICAL SPINE MIN 4+ VW (12/27/2015) Anatomical Region Laterality Modality Spine Other Bam Acosta MD DIAGNOSTIC IMAGING O RDERABLES * ENDOSCOPY, COLON, SCREENING (10/27/2015) Bam Acosta MD GI PROCEDURE ORDERAB LES * (ABNORMAL) LIPID PROFILE W LDL/HDL (PO REF LAB) (01/14/2015 9:19 AM COMPETITIVE SHOPPER) Only the most recent of6 resultswithin the time period is included. Cholesterol 219(H) 100 - 199 mg/dL [facility] ACCOUNT BILL Triglycerides 179(H) 0 - 149 mg/dL [facility] ACCOUNT BILL HDL Cholesterol 63 >39 mg/dL [facility] ACCOUNT BILL Comment: According to ATP-III Guidelines, HDL-C >59 mg/dL is considered a negative risk factor for CHD. VLDL Calculated 36 5 - 40 mg/dL [facility] ACCOUNT BILL LDL Calculated 120(H) 0 - 99 mg/dL [facility] ACCOUNT BILL Comment NOT NEEDED [facility] ACCOUNT BILL Comment:Ancillary determined the test is not needed LDL/HDL Ratio 1.9 0.0 - 3.2 ratio units [facility] ACCOUNT BILL Comment: LDL/HDL Ratio Men Women 1/2 Avg.Risk 1.0 1.5 Avg.Risk 3.6 3.2 2X Avg.Risk 6.2 5.0 3X Avg.Risk 8.0 6.1 Blood specimen (specimen) BLOOD SPECIMEN / Unknown 01/14/2015 9:19 AM COMPETITIVE SHOPPER 01/14/2015 12:40 PM COMPETITIVE SHOPPER Narrative Resulting Agency [facility] [address] [facility] [phone] Bam Acosta MD LAB - CHEMISTRY OSCAR MOLINA Performing Organization Address City/[facility]/ZIP Co de Phone Number [facility] ACCOUNT BILL * XR ELBOW LEFT 3+ VW MP (10/17/2012) Anatomical Region Laterality Modality Upper Extremity Other Bam Acosta MD DIAGNOSTIC IMAGING O RDERABLES * (ABNORMAL) LIPID PROFILE (01/17/2011 8:08 AM COMPETITIVE SHOPPER) Only the most recent of4 resultswithin the time period is included. Cholesterol 218(H) 100 - 199 mg/dL [facility] ACCOUNT BILL Triglycerides 168(H) 0 - 149 mg/dL [facility] ACCOUNT BILL HDL Cholesterol 67 >39 mg/dL [facility] ACCOUNT BILL Comment: According to ATP-III Guidelines, HDL-C >59 mg/dL is considered a negative risk factor for CHD. VLDL Calculated 34 5 - 40 mg/dL [facility] ACCOUNT BILL LDL Calculated 117(H) 0 - 99 mg/dL [facility] ACCOUNT BILL Blood specimen (specimen) BLOOD SPECIMEN / Unknown 01/17/2011 8:08 AM COMPETITIVE SHOPPER 01/17/2011 12:48 PM COMPETITIVE SHOPPER Narrative Resulting Agency Comment [facility] [address] [place] [phone] Bam Acosta MD LAB - CHEMISTRY OSCAR MOLINA [facility] ACCOUNT BILL * ALT (05/18/2010 8:36 AM CDT) Only the most recent of4 resultswithin the time period is included. ALT 24 0 - 40 IU/L [facility] ACCOUNT BILL BLOOD SPECIMEN / Unknown 05/18/2010 8:36 AM CDT 05/18/2010 6:51 PM CDT Narrative Resulting Agency Comment [facility] [place] [id number] [facility] [id number] Bam Acosta MD LAB - CHEMISTRY OSCAR MOLINA [facility] ACCOUNT BILL * XR ANKLE 3+ VW RIGHT (03/29/2010) Anatomical Region Laterality Modality Lower Extremity Other Bam Acosta MD DIAGNOSTIC IMAGING O RDERABLES * URINALYSIS MICROSCOPIC ONLY (02/23/2010 8:10 AM COMPETITIVE SHOPPER) Only the most recent of2 resultswithin the time period is included. WBC UA 0-5 0 - 5 /hpf [facility] ACCOUNT BILL RBC UA 0-3 0 - 3 /hpf [facility] ACCOUNT BILL Epithelial Cells (non renal) 0-10 0 - 10 /hpf [facility] ACCOUNT BILL Epithelial Cells (renal) NOT NEEDED [facility] ACCOUNT BILL Comment:Ancillary determined the test is not needed Casts ua NOT NEEDED [facility] ACCOUNT BILL Comment:Ancillary determined the test is not needed Casts UA NOT NEEDED [facility] ACCOUNT BILL Comment:Ancillary determined the test is not needed Crystals UA NOT NEEDED [facility] ACCOUNT BILL Comment:Ancillary determined the test is not needed Crystals UA NOT NEEDED [facility] ACCOUNT BILL Comment:Ancillary determined the test is not needed Mucus UA Present Not Estab. [facility] ACCOUNT BILL Bacteria UA Few None seen/Few [facility] ACCOUNT BILL Yeast UA NOT NEEDED [facility] ACCOUNT BILL Comment:Ancillary determined the test is not needed Trichomonas UA NOT NEEDED [facility] ACCOUNT BILL Comment:Ancillary determined the test is not needed Comment Urine NOT NEEDED [facility] ACCOUNT BILL Comment:Ancillary determined the test is not needed 02/23/2010 8:10 AM COMPETITIVE SHOPPER 02/23/2010 8:46 PM COMPETITIVE SHOPPER Narrative Resulting Agency Comment [facility] [place] [id number] [facility] [phone] Bam Acosta MD LAB - URINALYSIS ORD ERABLES [facility] ACCOUNT BILL * BASIC METABOLIC PANEL (CALCIUM TOTAL) (02/23/2010 8:06 AM COMPETITIVE SHOPPER) Only the most recent of2 resultswithin the time period is included. Glucose 86 65 - 99 mg/dL [facility] ACCOUNT BILL BUN 18 5 - 26 mg/dL [facility] ACCOUNT BILL Comment: Effective March 14, 2010, BUN reference interval will be changing to: 0 - 12 months 3 - 18 mg/dL 1 - 17 years 5 - 18 mg/dL 18 - 39 years 6 - 20 mg/dL 40 - 59 years 6 - 24 mg/dL 60 - 89 years 8 - 27 mg/dL > 89 years 10 - 36 mg/dL Creatinine 0.89 0.57 - 1.00 mg/dL [facility] ACCOUNT BILL eGFR by MDRD >59 >59 mL/min/1.7 3 [facility] ACCOUNT BILL eGFR by MDRD >59 >59 mL/min/1.7 3 [facility] ACCOUNT BILL Comment: Note: Persistent reduction for 3 months or more in an eGFR <60 mL/min/1.73 m2 defines CKD. Patients with eGFR values >/=60 mL/min/1.73 m2 may also have CKD if evidence of persistent proteinuria is present. Additional information may be found at www.kdoqi.org. BUN/Creatinine Ratio 20 [facility] ACCOUNT BILL Comment: Effective March 14, 2010, Bun/Creatinine Ratio reference interval will be changing to: Age Male Female <18 years - 9 - 25 18 - 39 years 8 - 8 - 40 - 59 years 9 - 9 - 60 years and older 11 - Sodium 142 135 - 145 mmol/L [facility] ACCOUNT BILL Potassium 3.7 3.5 - 5.2 mmol/L [facility] ACCOUNT BILL Chloride 101 97 - 108 mmol/L [facility] ACCOUNT BILL CO2 24 20 - 32 mmol/L [facility] ACCOUNT BILL Calcium 10.1 8.7 - 10.2 mg/dL [facility] ACCOUNT BILL BLOOD SPECIMEN / Unknown 02/23/2010 8:06 AM COMPETITIVE SHOPPER 02/23/2010 9:04 PM COMPETITIVE SHOPPER Narrative Resulting Agency Comment [facility] [place] [address] [facility] [phone] Bam Acosta MD LAB - CHEMISTRY OSCAR MOLINA [facility] ACCOUNT BILL * SKIN TEST PPD - POINT OF CARE (01/13/2010 10:28 AM COMPETITIVE SHOPPER) Only the most recent of2 resultswithin the time period is included. PPD negtive MISCELLANEOUS SAMPLE S / Unknown Bam Acosta MD LAB - POINT OF CARE ORDERABLES * (ABNORMAL) MEASLES/MUMPS/RUBELLA IMMUNITY (PO REF LAB) (01/04/2010 10:55 AM CDT) Rubella Antibody 328 IU/mL [facility] ACCOUNT BILL Comment: Non-immune <5 Equivocal 5 - 9 Immune >9 Measles (Rubeola) Antibody IgG 3.99(H) 0.00 - 0.90 index [facility] ACCOUNT BILL Comment: Negative <0.91 Equivocal 0.91 - 1.09 Positive >1.09 . Presence of antibodies to Rubeola is presumptive evidence of immunity except when active infection is suspected. Mumps Virus Antibody IgG Index 3.73(H) 0.00 - 0.90 index [facility] ACCOUNT BILL Comment: Negative <0.91 Equivocal 0.91 - 1.09 Positive >1.09 Presence of antibodies to Mumps is presumptive evidence of immunity except when active infection is suspected. BLOOD SPECIMEN / Unknown 01/04/2010 10:55 AM CDT 01/04/2010 5:09 PM CDT Narrative Resulting Agency Comment [facility] [address] [facility] [phone] Bam Acosta MD LAB - SEROLOGY ORDER SHARONDA [facility] ACCOUNT BILL * (ABNORMAL) VARICELLA ZOSTER ANTIBODY IGG (01/04/2010 10:45 AM CDT) Varicella zoster Virus Antibody IgG 1.93(H) 0.00 - 0.90 index [facility] ACCOUNT BILL Comment: Negative <0.91 Equivocal 0.91 - 1.09 Positive >1.09 BLOOD SPECIMEN / Unknown 01/04/2010 10:45 AM CDT 01/04/2010 5:10 PM CDT Narrative Resulting Agency Comment [facility] [address] [facility] [phone] Bam Acosta MD LAB - CHEMISTRY OSCAR MOLINA [facility] Organization Address City/State/ZIP Co de Phone Number [facility] ACCOUNT BILL * DEXA BONE DENSITY 2 SITES (10/12/2009) Anatomical Region Laterality Modality Other Bam Acosta MD DEXA ORDERABLES * [place] ESOPHAGUS BARIUM SWALLOW (10/08/2009 10:44 AM CDT) Anatomical Region Laterality Modality Chest Radiographic Nasreen ging 10/08/2009 11:0 3 AM CDT Impressions 10/08/2009 12:01 PM CDT Negative study. Narrative 10/08/2009 12:01 PM CDT FL Esophagus Barium Swallow Indication: Dysphagia. Patient complains of intermittent choking sensation with food and pills since 1981. Comparison: None. Findings: The patient was able to swallow the liquid barium without difficulty. I asked her on several occasions if she was having any symptoms during the examination and she denied symptoms. There is no evidence of obstruction. Her swallowing mechanism appeared well coordinated. No hiatus hernia could be identified during the Valsalva swallow maneuver. There was no gastroesophageal reflux observed. Procedure Note Jeff Rizzo MD - 10/08/2009 [place] Esophagus Barium Swallow Indication: Dysphagia. Patient complains of intermittent choking sensation with food and pills since 1981. Comparison: None. Findings: The patient was able to swallow the liquid barium without difficulty. I asked her on several occasions if she was having any symptoms during the examination and she denied symptoms. There is no evidence of obstruction. Her swallowing mechanism appeared well coordinated. No hiatus hernia could be identified during the Valsalva swallow maneuver. There was no gastroesophageal reflux observed. IMPRESSION Negative study. Gary Harkins MD FLUOROSCOPY ORDER SHARONDA * CARDIAC ECHOCARDIOGRAM COMPLETE ORDER (08/30/2009) Bam Acosta MD ECHO ORDERABLES * ENDOSCOPY, COLON, SCREENING (11/01/2005) Bam Acosta MD GI PROCEDURE ORDERAB LES Care Teams Nursing Education Specialist Relationship Specialty Start Date End Date Loraine Tutu PipoDO [address] [place] [phone] PCP - General Internal Medicine 08/25/21 Shannon Poon MD 10/16/09 Mahesh Duke MD [address] [address] 10/16/09 Adonay Lopez MD [address] [address] Ophthalmology 03/26/13 Krista Tubbs MD [address] [place] [address] Physical Medicine and Rehabilitation 09/09/14 Manjinder Torres MD [address] [place] [address] Obstetrics and Gynecology 02/07/19 Cassidy Guerrero DO [address] [facility] [address] [place] [address] Cardiovascular Disease 07/25/21
--- NOTE | 2024-04-18 15:35 | ECG_ITS ---
Test Date: 2024-04-18 15:40:55 Measurements Intervals [place] Rate: 70 P: 67 MS: 149 QRS: 30 QRSD: 82 T: 67 QT: 375 QTc: 407 Interpretive Statements SINUS RHYTHM CANNOT R/O SEPTAL INFARCT, AGE INDETERMINATE NONSPECIFIC ST-T WAVE ABNORMALITY- LATERAL LEADS ABNORMAL ECG No previous ECG available for comparison Electronically Signed On 04-18-2024 19:31:39 OIL PIPELINE OPERATOR by Freddie Youssef D.O.
[2024-04-18 16:27] LABS: Anion Gap 7 mmol/L (4-12); Blood Urea Nitrogen 14 mg/dL (7-17); Calcium 9.4 mg/dL (8.4-10.2); Carbon Dioxide 30 mmol/L (22-30); Chloride 99 mmol/L (98-107); Estimated Glomerular Filt Rate > 60; Glucose 104 mg/dL (65-110); Potassium 3.8 mmol/L (3.4-5.0); Sodium 136 mmol/L (137-145)
== END 2024-04-18 15:10 | disposition home or self-care (01) ==
PROVIDERS: Visit Provider Nurse Anesthetist, Certified Registered
DX: Z01.818 Encounter for other preprocedural examination (principal); R94.31 Abnormal electrocardiogram [ECG] [EKG]
CPT/HCPCS: 36415; 80048; 93005

== ENCOUNTER 2024-04-21 14:13 | Outpatient (CLI) | payer MEDICARE, SELFPAY ==
--- NOTE | ~2024-04-21 | DEXA_ITS ---
Bone Density Report Name: DARIO YIP Age: 68 Sex: Female Ethnicity: White Date of : 1955 Indication: postmenopausal; screening for osteoporosis; Referring Provider: UNKNOWN, UNKNOWN Study: Bone densitometry was performed. Exam Date: April 21, 2024 Accession number: [id number] Bone Density: Region BMD T-score Z-score Classification AP Spine(L1-L4) 0.952 -0.9 1.3 Normal Femoral Neck (Left) 0.702 -1.3 0.5 Osteopenia Total Hip (Left) 0.955 0.1 1.7 Normal Femoral Neck (Right) 0.747 -0.9 0.9 Normal Total Hip (Right) 0.968 0.2 1.8 Normal Femoral Neck Mean 0.725 -1.1 0.7 Osteopenia Total Hip Mean 0.962 0.2 1.7 Normal World Health Organization criteria for BMD impression classify patients as: Normal (T-score at or above -1.0), Osteopenia (T-score between -1.0 and -2.5), or Osteoporosis (T-score at or below -2.5). 10-year Fracture Risk(1): Major Osteoporotic Fracture 9.6% Hip Fracture 2.0% Reported Risk Factors: [place] (), Neck BMD=0.702, BMI=29.7, smoking (1) FRAX(R) Version 3.08. Fracture probability calculated for an untreated patient. Fracture probability may be lower if the patient has received treatment. Clinical Information Provided by Patient: Smokes Has used the following medications: Boniva (i.e. ibandronate), Vitamin D, multivitamin Patient maximum height was 63 Menopause Age: 48 No regular weight bearing exercise Drinks caffeinated beverages Onset of menses at age 9 Number of children 1 Impression: The patient has low bone mass, based on the Left Femoral Neck T-score. The patient has risk factors, including: smoking. Discussion: BONE DENSITY IS LOW AT ONE OR MORE SKELETAL SITES. This patient's lowest T-score is low at one or more skeletal sites. It meets the World Health Organization's (WHO) criteria for ?low bone mass? (T-score between -1.0 and -2.5). The patient's 10-year risk of fracture as calculated by FRAX is less than the threshold where pharmacological therapy is recommended by the National Osteoporosis Foundation (NOF). However, all treatment decisions require clinical judgment and consideration of individual patient factors, including patient preferences, comorbidities, previous drug use, risk factors not captured in the FRAX model (e.g., frailty, falls, vitamin D deficiency, increased bone turnover, interval significant decline in bone density) and possible under or overestimation of fracture risk by FRAX. The patient should follow a healthful lifestyle (good nutrition with adequate calcium and vitamin D, and appropriate weight-bearing exercise). Follow-Up: Consider repeating this study in 2 to 3 years to reassess this patient's status, or sooner if there is some new clinical indication. Reported by: JOSE on 04/21/2024 2:36:00 PM. Reviewed, dictated and finalized at location A.
--- OUTSIDE RECORDS SUMMARY | 2024-04-21 16:59 | XMS_ITS | Encounter Summary ---
Author Organization [facility] Address 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
--- OUTSIDE RECORDS SUMMARY | 2024-04-21 16:59 | XMS_ITS | Clinical Summary ---
Author Organization [facility] Address [address] [facility] [place] [address] Care Team Providers Care Claim Manager Name Role Phone Shannon Poon MD Unavailable UnavailMahesh Hampton MD Unavailable [phone] Adonay Lopez MD Unavailable Unavailable Krista Tubbs MD Unavailable [phone] Manjinder Torres MD Unavailable Cassidy Guerrero DO Unavailable [phone] Tutu Baron DO Primary Care Provider [phone] Source Comments [facility],non-owned Affiliates and Associated Physician Practices is amultiple site organization consisting of ambulatory clinics and hospital sitesin [place], [place], [place] and [place]. This disclosure is being madepursuant to the Care Everywhere program and may not contain all information available regarding this patient. Last updated 17.[facility] Allergies Active Allergy Reactions Criticality Noted Date [...] fluticasone propionate (FLONASE) 50 MCG/ACT nasal spray [place] 2 (two) sprays into the nose once [...] Type Department Care Team Description 04/01/2024 Refill [facility] - Internal Medicine [address] [facility] [place] [address] Tutu Baron, DO Refill Request from Last [...] Comments Blood Pressure 118/66 01/10/2024 11:20 AM CORRECTIONAL CASE MANAGER Pulse 76 01/10/2024 11:20 AM CORRECTIONAL CASE MANAGER Temperature 36.8 C (98.2 F) 01/01/2024 3:06 PM CDT Respiratory Rate 18 06/08/2020 11:59 AM CDT Oxygen Saturation 98% 01/01/2024 3:06 PM CDT Inhaled Oxygen Concentration - - Weight 77.3 kg (170 lb 6.4 oz) 01/10/2024 11:20 AM CORRECTIONAL CASE MANAGER Height 160 cm (5' 3 ) 01/01/2024 3:06 PM CDT Body Mass Index 30.19 01/01/2024 3:06 PM CDT Plan of Treatment Upcoming Encounters Date Type Department Care Team (Late st Contact Info) Description 01/01/2025 1:40 PM CDT Office Visit [facility] - Internal Medicine [address] [facility] [place] [address] Tutu Baron DO [address] [facility] [place] [phone] 01/09/2025 1:00 PM CORRECTIONAL CASE MANAGER Office Visit [facility] [address] [place] [address] [address] [place] [address] Cassidy Guerrero DO [address] [place] [address] [address] [place] [address] Health Maintenance Due Date Last Done Comments [...] < 140/90 Blood Pressure 118/66(2023 11:20 AM CORRECTIONAL CASE MANAGER) No Felicity Hess Exercise 3X per week (30 min per time) Exercise On track( 015 11:08 AM CORRECTIONAL CASE MANAGER) No Pam Garcia MA Procedures Procedure Name Priority Date/Time Associated Diagnosis Comments CARDIAC EKG ORDER 04/18/2024 COMPREHENSIVE METABOLIC PANEL Routine 01/01/2024 3:43 PM CDT Essential hypertension MAMMO BILAT SCREENING Routine 01/01/2023 Screening mammogram for breast cancer HEPATITIS C ANTIBODY Routine 01/05/2020 2:19 PM CORRECTIONAL CASE MANAGER Need for hepatitis C screening test ENDOSCOPY, COLON, SCREENING Routine 10/27/2015 DEXA BONE DENSITY 2 SITES Routine 10/12/2009 from Last 3 Months or Most Recently Relevant to Health Maintenance Results * CARDIAC EKG ORDER (04/18/2024) 04/18/2024 Narrative 04/18/2024 Ordered by an unspecified provider. Scanned Document CARDIAC SERVICES ORD ERABLES * COMPREHENSIVE METABOLIC PANEL (01/01/2024 3:43 PM [...] - 01/02/2024 9:13 AM CDT Performed at: - [facility] [address] [place], [place] [id number] Supervisor Alum Plant: Dejon Mcgee PhD, Phone: [phone] Tutu Baron DO LAB - CHEMISTRY OSCAR MOLINA Performing Organization Address [facility] Co de Phone Number [facility] INSURANCE BILL [address] [place] [address] * MAMMO BILAT SCREENING (01/01/2023) Anatomical Region Laterality Modality Breast Bilateral Mammography 01/01/2023 Tutu Baron DO MAMMO ORDERABLES * HEPATITIS C ANTIBODY (01/05/2020 2:19 PM CORRECTIONAL CASE MANAGER) Hepatitis C Antibody Non Reactive Non Reactive [facility] ACCOUNT BILL Comment: Non Reactive - Antibodies to Hepatitis C virus (HCV) were no t detected, result does not exclude early acute HCV infection. Blood BLOOD SPECIMEN / Unknown 01/05/2020 2:19 PM CORRECTIONAL CASE MANAGER 01/05/2020 Narrative Resulting Agency Comment Lab Testing performed at: [address] [id number] Gabriela Lenz MD LAB - CHEMISTRY ORDRick MOLINA Performing Organization Address City/[facility]/ZIP Co de Phone Number [facility] ACCOUNT BILL [address] [place] [address] * ENDOSCOPY, COLON, SCREENING (10/27/2015) Bam Acosta MD GI PROCEDURE ORDERAB LES * DEXA BONE DENSITY 2 SITES (10/12/2009) Anatomical Region Laterality Modality Other Bam Acosta MD DEXA ORDERABLES from Last 3 Months or Most Recently Relevant to Health Maintenance Care Teams Claim Manager Relationship Specialty Start Date End Date Tutu Baron DO [address] [place] [address] PCP - General Internal Medicine 08/25/21 Shannon Poon MD 10/16/09 Mahesh Duke MD [address] [address] 10/16/09 Adonay Lopez MD [address] [address] Ophthalmology 03/26/13 Krista Tubbs MD [address] [place] [address] Physical Medicine and Rehabilitation 09/09/14 Manjinder Torres MD [address] [place] [address] Obstetrics and Gynecology 02/07/19 Cassidy Guerrero DO [address] [facility] [address] [place] [address] Cardiovascular Disease 07/25/21
--- OUTSIDE RECORDS SUMMARY | 2024-04-21 16:59 | XMS_ITS | Encounter Summary ---
Author Organization [facility] Address [address] [place] [address] Care Team Providers Care Machinist Tool And Die Name Role Phone Bam Acosta MD Primary [...] on file Legal Sex Female 5:12 AM TARP REPAIRER Gender Identity Not on file Sexual Orientation Not on file documented as of this encounter Plan of Treatment Not on file documented as of this encounter Visit Diagnoses Diagnosis Special screening for malignant neoplasms, colon- Primary documented in this encounter Care Teams Machinist Tool And Die Relationship Specialty Start Date End Date Bam Acosta MD PCP - General 02/19/15 documented as of this encounter
--- OUTSIDE RECORDS SUMMARY | 2024-04-21 16:59 | XMS_ITS | Encounter Summary ---
Author Organization [facility] Address 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 Gender Identity Not on file Sexual [...] AM CDT Narrative 06/26/2008 2:37 PM CDT [id number] [place], [place] [address] Admit Date: 06/26/2008 DARIO MOSELEY Sex: F Admit Prov: ORGER GARCIA Date: 1955 Primary Care Prov: BAM ACOSTA CMRN: [id number] Room: Pipo N: [id number] IMAGING SERVICES Ordering Prov: ROGER GARCIA Accession Number: [id number] Interpretation DIGITAL SCREENING MAMMOGRAM WITH COMPUTER-ASSISTED DIAGNOSIS [...] Procedure Note Malgorzata Gerber MD - 06/26/2008 [id number] [place], [place] [address] Admit Date: 06/26/2008 DARIO MOSELEY Sex: F Admit Prov: JOSEROGER Date: 1955 Primary Care Prov: BAM ACOSTA CMRN: [id number] Room: DINORAHPipo N: [id number] IMAGING SERVICES Ordering Prov: ROGER GARCIA Interpretation [...] mammogram documented in this encounter Care Teams Jordan Man Relationship Specialty Start Date End Date Bam Acosta MD PCP - General 02/19/15 documented as of this encounter
--- OUTSIDE RECORDS SUMMARY | 2024-04-21 16:59 | XMS_ITS | Referral Summary ---
Author Organization [facility] Address [address] [facility] [place] [address] Care Team Providers Care Folder Seamer Name Role Phone Shannon Poon MD Unavailable UnavailMahesh Hampton MD Unavailable [phone] Adonay Lopez MD Unavailable Unavailable Krista Tubbs MD Unavailable [phone] Manjinder Torres MD Unavailable Cassidy Guerrero DO Unavailable [phone] Tutu Baron DO Primary Care Provider [phone] Source Comments [facility],non-owned Affiliates and Associated Physician Practices is amultiple site organization consisting of ambulatory clinics and hospital sitesin [place], [place], [place] and [place]. This disclosure is being madepursuant to the Care Everywhere program and may not contain all information available regarding this patient. Last updated 17.[facility] Encounters Date Type Department Care Team Description 04/01/2024 Refill [facility] - Internal Medicine [address] [facility] [place] [address] Tutu Baron DO Refill Request from Last [...] fluticasone propionate (FLONASE) 50 MCG/ACT nasal spray [place] 2 (two) sprays into the nose once [...] Comments Blood Pressure 118/66 01/10/2024 11:20 AM ICE CREAM MAKER Pulse 76 01/10/2024 11:20 AM ICE CREAM MAKER Temperature 36.8 C (98.2 F) 01/01/2024 3:06 PM CDT Respiratory Rate 18 06/08/2020 11:59 AM CDT Oxygen Saturation 98% 01/01/2024 3:06 PM CDT Inhaled Oxygen Concentration - - Weight 77.3 kg (170 lb 6.4 oz) 01/10/2024 11:20 AM ICE CREAM MAKER Height 160 cm (5' 3 ) 01/01/2024 3:06 PM CDT Body Mass Index 30.19 01/01/2024 3:06 PM CDT Plan of Treatment Upcoming Encounters Date Type Department Care Team (Late st Contact Info) Description 01/01/2025 1:40 PM CDT Office Visit [facility] - Internal Medicine [address] [facility] [place] [address] Tutu Baron, DO [address] [facility] [place] [place] [address] 01/09/2025 1:00 PM ICE CREAM MAKER Office Visit [facility] [address] [place] [address] [address] [place] [address] Cassidy Guerrero DO [address] [place] [address] [address] [place] [address] Goals Goal Patient Goal Type Associated Problems Recent Progress Patient-Stated? Author Blood Pressure < 140/90 Blood Pressure 118/66(2023 11:20 AM ICE CREAM MAKER) No Felicity Hess Exercise 3X per week (30 min per time) Exercise On track( 015 11:08 AM ICE CREAM MAKER) No Pam Garcia MA Procedures Procedure Name Priority Date/Time Associated Diagnosis Comments CARDIAC EKG ORDER 04/18/2024 COMPREHENSIVE METABOLIC PANEL Routine 01/01/2024 3:43 PM CDT Essential hypertension MAMMO BILAT SCREENING Routine 01/01/2023 Screening mammogram for breast cancer HEPATITIS C ANTIBODY Routine 01/05/2020 2:19 PM ICE CREAM MAKER Need for hepatitis C screening test ENDOSCOPY, [...] 01/02/2024 9:13 AM CDT Performed at: - [facility] [address] [place], [place] [id number] Privacy Attorney: Dejon Mcgee PhD, Phone: [phone] Tutu Baron DO LAB - CHEMISTRY OSCAR MOLINA Performing Organization Address City/[facility] Co de Phone Number [facility] INSURANCE BILL [address] [place] [address] * MAMMO BILAT SCREENING (01/01/2023) Anatomical Region Laterality Modality Breast Bilateral Mammography 01/01/2023 Tutu Baron DO MAMMO ORDERABLES * HEPATITIS C ANTIBODY (01/05/2020 2:19 PM ICE CREAM MAKER) Hepatitis C Antibody Non Reactive Non Reactive [facility] ACCOUNT BILL Comment: Non Reactive - Antibodies to Hepatitis C virus (HCV) were no t detected, result does not exclude early acute HCV infection. Blood BLOOD SPECIMEN / Unknown 01/05/2020 2:19 PM ICE CREAM MAKER 01/05/2020 Narrative Resulting Agency Comment Lab Testing performed at: [facility] [place] [facility] [address] [facility] [id number] Gabriela Lenz MD LAB - CHEMISTRY OSCAR MOLINA Performing Organization Address City/[facility] Co de Phone Number [facility] ACCOUNT BILL [address] [place] [address] * ENDOSCOPY, COLON, SCREENING (10/27/2015) Bam Acosta MD GI PROCEDURE ORDERAB LES * DEXA BONE DENSITY 2 SITES (10/12/2009) Anatomical Region Laterality Modality Other Bam Acosta MD DEXA ORDERABLES from Last 3 Months or Most Recently Relevant to Health Maintenance Administered Medications Care Teams Folder Seamer Relationship Specialty Start Date End Date Tutu Baron DO [address] [place] [address] PCP - General Internal Medicine 08/25/21 Shannon Poon MD 10/16/09 Mahesh Duke MD [address] [address] 10/16/09 Adonay Lopez MD [address] [address] Ophthalmology 03/26/13 Krista Tubbs MD [address] [place] [address] Physical Medicine and Rehabilitation 09/09/14 Manjinder oTrres MD [address] [place] [address] Obstetrics and Gynecology 02/07/19 Cassidy Guerrero DO [facility] [facility] [address] [place] [address] Cardiovascular Disease 07/25/21
--- OUTSIDE RECORDS SUMMARY | 2024-04-21 16:59 | XMS_ITS | Encounter Summary ---
Author Organization [facility] Address 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
--- OUTSIDE RECORDS SUMMARY | 2024-04-21 16:59 | XMS_ITS | Encounter Summary ---
Author Organization [facility] Address 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
--- OUTSIDE RECORDS SUMMARY | 2024-04-21 16:59 | XMS_ITS | Clinical Summary ---
Author Organization [facility] Address [address] [place] [address] Care Team Providers Care Forest Fire Lookout Name Role Phone Bam Acosta MD Primary [...] AQ) 55 mcg nasal spray Administer 1 [place] in each nostril daily. Active famotidine (PEPCID) [...] Ac tive fluticasone propionate (FLONASE) 50 mcg/spray [place], Suspension nasal inhaler Administer 2 Sprays in [...] Department Care Team Description 04/14/2024 1:00 PM PERCHER Office Visit [facility] CHIEF SUBSTATION OPERATOR - [facility] [address] [facility] [address] [place] [phone] Manjinder Torres MD Encounter for gynecological examination without abnormal finding (Primary Dx); Screening for cervical cancer 04/04/2024 Telephone [facility] CHIEF SUBSTATION OPERATOR - [facility] [place] [facility] [address] [facility] [address] [place] [address] Brandon Linda MD new order for bone scan 04/01/2024 External Device Data STL ABSTRACTION Provider, Abstract 03/26/2024 External Device Data STL ABSTRACTION Provider, Abstract 03/26/2024 External Device Data ST[facility] ABSTRACTION Provider, Abstract 02/13/2024 1:07 PM PERCHER - 02/13/2024 11:59 PM PERCHER Hospital Encounter [facility] [place] [facility] [address] [place] [address] Bam Acosta MD Discharge Disposition: Home or [...] on file Legal Sex Female 5:12 AM PERCHER Gender Identity Not on file Sexual Orientation Not on file Occupation Industry Job Start Date Job End Date Not on file Not on file Not on file Not on file Last Filed Vital Signs Vital Sign Reading Time Taken Comments Blood Pressure 130/82 04/14/2024 1:07 PM PERCHER Pulse - - Temperature - - Respiratory Rate - - Oxygen Saturation - - Inhaled Oxygen Concentration - - Weight 76.7 kg (169 lb) 04/14/2024 1:07 PM PERCHER Height 160 cm (5' 3 ) 04/14/2024 1:07 PM PERCHER Body Mass Index 29.94 04/14/2024 1:07 PM PERCHER Plan of Treatment Health Maintenance Due Date [...] PAP RLFX HPV Routine 04/14/2024 2:09 PM PERCHER Screening for cervical cancer MAMMO 3D JUDY SCREEN BILAT W OR WO CAD Routine 02/13/2024 1:24 PM PERCHER Visit for screening mammogram XR DEXA BONE DENSITY AXIAL 1 OR MORE SITES Routine 04/13/2023 3:08 PM PERCHER Age-related osteoporosis without current pathological fracture Fracture [...] SCREEN PAP RLFX HPV (04/14/2024 2:09 PM PERCHER) CLINICAL INFORMATION [facility] Comment:None given LAST MENSTRUAL PERIOD [facility] Comment:NONE GIVEN PREV PAP: [facility] Comment:NONE GIVEN PREV BX: [facility] Comment:NONE GIVEN SOURCE [facility] Comment:ENDOCERVIX ADEQUACY: [facility] Comment:SATISFACTORY FOR JOHNATHAN LUATION PAP INTERP [facility] Comment: Cytology Results: Negative for intraepithelial lesion or malignancy. Atrophic pattern; predominantly parabasal cells COMMENT (PAP TEST) Pipo meriPaawilda [facility] Comment: This Pap test has been evaluated with computer assisted technology. BUSINESS PROPOSAL REP: Mellissa Bain [facility] Comment: FCB, CT(ASCP) CT screening location: [facility], [address] [place] [address] [address], [place] [address] Telephone Order Supervisor: LIVAN SEGURA MD, CLIA: [id number] EXPLANATORY NOTE [facility] Comment: EXPLANATORY NOTE: The Pap is a [...] current clinical information. Test Performed at: [facility] [address] [address] Adonay Segura MD Genital SWAB OF ENDOCERVIX / Unknown 04/14/2024 2:09 PM PERCHER 04/14/2024 10:56 PM PERCHER Manjinder Torres MD PATHOLOGY/CYTOLOGY ORD ERABLES Final Result [facility] [phone] [facility] [address] [address] * MAMMO 3D JUDY SCREEN BILAT W OR WO CAD (02/13/2024 1:24 PM PERCHER) Anatomical Region Laterality Modality Breast Bilateral Mammography 02/13/2024 1:24 PM PERCHER Impressions 02/13/2024 1:45 PM PERCHER IMPRESSION: No mammographic evidence of malignancy. RECOMMENDATIONS: Routine screening mammogram in one year. DICTATION LOCATION: [facility] Narrative 02/13/2024 1:45 PM PERCHER BILATERAL FULL-FIELD DIGITAL SCREENING MAMMOGRAM WITH CAD [...] screening mammogram in one year. DICTATION LOCATION: [facility] Bam Acosta MD MAMMO ORDERABLES Final Result * XR DEXA BONE DENSITY AXIAL 1 OR MORE SITES (04/13/2023 3:08 PM PERCHER) Anatomical Region Laterality Modality Computed Radiogr aphy Impressions 04/16/2023 3:46 PM PERCHER : Patient's bone density is stable to [...] AND B HERMELINDA MCR SUPP Care Teams Forest Fire Lookout Relationship Specialty Start Date End Date Bam Acosta MD PCP - General 02/19/15
--- OUTSIDE RECORDS SUMMARY | 2024-04-21 16:59 | XMS_ITS | Encounter Summary ---
Author Organization [facility] Address [address] [place] [address] Care Team Providers Care Technology Internship Name Role Phone Bam Acosta MD Primary Care Provider Unavail able Encounter Details Date Type Department Care Team (Latest Contact Info) Description 04/30/2003 Outpatient Historical HIS [facility] HELEN Fernandes, Rgoer Gould MD NO ADDRESS ON FILE SCREENING MAMM-MAILG NEOPL-OTHER (Primary Dx) Social History Tobacco Use Types Packs/Day Years Used Date Smoking Tobacco: Never Assessed Comments Unknown Sex and Gender Information Value Date Recorded Sex Assigned at Not on file Legal Sex Female 5:12 AM MARKET DEVELOPMENT MANAGER Gender Identity Not on file Sexual Orientation Not on file documented as of this encounter Plan of Treatment Not on file documented as of this encounter Visit Diagnoses Diagnosis Other screening mammogram- Primary documented in this encounter Care Teams Technology Internship Relationship Specialty Start Date End Date Bam Acosta MD PCP - General 02/19/15 documented as of this encounter
--- OUTSIDE RECORDS SUMMARY | 2024-04-21 16:59 | XMS_ITS | Encounter Summary ---
Author Organization [facility] Address [address] [place] [address] Care Team Providers Care Supervisor Die Casting Name Role Phone Bam Acosta MD Primary Care Provider Unavail able Encounter Details Date Type Department Care Team (Latest Contact Info) Description 04/24/2002 Outpatient Historical HIS [facility] HELEN Fernandes, Roger Gould MD NO ADDRESS ON FILE SCREENING MAMM-MAILG NEOPL-OTHER (Primary Dx) Social History Tobacco Use Types Packs/Day Years Used Date Smoking Tobacco: Never Assessed Comments Unknown Sex and Gender Information Value Date Recorded Sex Assigned at Not on file Legal Sex Female 5:12 AM RIG WELDER Gender Identity Not on file Sexual Orientation Not on file documented as of this encounter Plan of Treatment Not on file documented as of this encounter Visit Diagnoses Diagnosis Other screening mammogram- Primary documented in this encounter Care Teams Supervisor Die Casting Relationship Specialty Start Date End Date Bam Acosta MD PCP - General 02/19/15 documented as of this encounter
--- OUTSIDE RECORDS SUMMARY | 2024-04-21 16:59 | XMS_ITS | Encounter Summary ---
Author Organization [facility] Address [address] [place] [address] Care Team Providers Care Head Buyer Tobacco Name Role Phone Bam Acosta MD Primary Care Provider Unavail able Encounter Details Date Type Department Care Team (Latest Contact Info) Description 2005 Outpatient Historical HIS [facility] HELEN Fernandes, Roger Gould MD NO ADDRESS ON FILE Other Screening Mammogram (Primary Dx) Social History Tobacco Use Types Packs/Day Years Used Date Smoking Tobacco: Never Assessed Comments Unknown Sex and Gender Information Value Date Recorded Sex Assigned at Not on file Legal Sex Female 5:12 AM GOSPEL SINGER Gender Identity Not on file Sexual Orientation Not on file documented as of this encounter Plan of Treatment Not on file documented as of this encounter Visit Diagnoses Diagnosis Other screening mammogram- Primary documented in this encounter Care Teams Head Buyer Tobacco Relationship Specialty Start Date End Date Bam Acosta MD PCP - General 02/19/15 documented as of this encounter
--- OUTSIDE RECORDS SUMMARY | 2024-04-21 16:59 | XMS_ITS | Encounter Summary ---
Author Organization [facility] Address [address] [place] [address] Care Team Providers Care Licensed Optical Dispenser Name Role Phone Bam Acosta MD Primary Care Provider Unavail able Encounter Details Date Type Department Care Team (Latest Contact Info) Description 06/26/2007 Outpatient Historical HIS [facility] Roger Sanchez MD NO ADDRESS ON FILE Other Screening Mammogram Social History Tobacco Use Types Packs/Day Years Used Date Smoking Tobacco: Never Assessed Comments Unknown Sex and Gender Information Value Date Recorded Sex Assigned at Not on file Legal Sex Female 5:12 AM DIRECTOR OF RETENTION Gender Identity Not on file Sexual Orientation [...] AM CDT Narrative 06/27/2007 7:51 AM CDT [address] [place], [place] [address] Admit Date: 06/26/2007 DARIO MOSELEY Sex: F Admit Prov: ROGER GARCIA Date: 1955 Primary Care Prov: BAM ACOSTA CMRN: [id number] Room: DINORAHPipo N: [id number] IMAGING SERVICES Ordering Prov: ROGER GARCIA Accession Number: [id number] Interpretation BILATERAL SCREENING DIGITAL MAMMOGRAMS WITH COMPUTER [...] AMK Procedure Note Nell Cárdenas - 06/27/[address] [address] Admit Date: 06/26/2007 DARIO MOSELEY Sex: F Admit Prov: ROGER GARCIA Date: 1955 Primary Care Prov: BAM ACOSTA CMRN: [id number] Room: SAQIB N: [id number] IMAGING SERVICES Ordering Prov: ROGER GARCIA Interpretation [...] mammogram documented in this encounter Care Teams Licensed Optical Dispenser Relationship Specialty Start Date End Date Bam Acosta MD PCP - General 02/19/15 documented as of this encounter
--- OUTSIDE RECORDS SUMMARY | 2024-04-21 16:59 | XMS_ITS | Patient Health Summary ---
Author Organization [facility] Address [address] [place] [address] Care Team Providers Care Gastroenterology Professor Name Role Phone Shannon Poon MD Unavailable UnavailMahesh Hampton MD Unavailable [phone] Adonay Lopez MD Unavailable Unavailable Krista Tubbs MD Unavailable [phone] Manjinder Torres MD Unavailable Cassidy Guerrero DO Unavailable [phone] Tutu Baron DO Primary Care Provider [phone] Note [address] [facility],non-owned Affiliates and Associated Physician Practices is amultiple site organization consisting of ambulatory clinics and hospital sitesin [place], [place], [place] and [place]. This disclosure is being madepursuant to the Care Everywhere program and may not contain all information available regarding this patient. Last updated 17.[facility] Allergies * Ami-Christopher(Intolerant) * Buspirone Hcl(Insomnia) [...] fluticasone propionate (FLONASE) 50 MCG/ACT nasal spray [place] 2 (two) sprays into the nose once [...] Comments Blood Pressure 118/66 01/10/2024 11:20 AM MOBILITY DEVELOPER Pulse 76 01/10/2024 11:20 AM MOBILITY DEVELOPER Temperature 36.8 C (98.2 F) 01/01/2024 3:06 PM CDT Respiratory Rate 18 06/08/2020 11:59 AM CDT Oxygen Saturation 98% 01/01/2024 3:06 PM CDT Inhaled Oxygen Concentration - - Weight 77.3 kg (170 lb 6.4 oz) 01/10/2024 11:20 AM MOBILITY DEVELOPER Height 160 cm (5' 3 ) 01/01/2024 3:06 PM CDT Body Mass Index 30.19 01/01/2024 3:06 PM CDT Procedures * CARDIAC EKG ORDER(Performed 04/18/2024) * VITAMIN D 25-HYDROXY(Performed 01/01/2024) Performed for [...] * ENDOSCOPY, COLON, SCREENING(Performed 11/01/2005) Results * CARDIAC EKG ORDER (04/18/2024) 04/18/2024 Narrative 04/18/2024 Ordered by an unspecified provider. Scanned Document CARDIAC SERVICES ORD ERABLES * LIPID PROFILE REFLEX LDL DIRECT (01/01/2024 [...] - 01/02/2024 10:12 AM CDT Performed at: - [address] [id number] Permastone Applicator: Dejon Mcgee PhD, Phone: [phone] Tutu Baron DO LAB - CHEMISTRY [place] Performing Organization Address [facility] de Phone Number [facility] INSURANCE BILL [address] [place] [address] * VITAMIN D 25-HYDROXY (01/01/2024 3:43 PM CDT) Only the most recent of12 resultswithin the time period is included. Vitamin D, 25 Hydroxy 54.2 30.0 - 100.0 ng/mL [facility] INSURANCE BILL Comment: Vitamin D deficiency has been defined by the [place]iro of Medicine and an Endocrine Society practice guideline as a level of serum 25-OH vitamin D less than 20 ng/mL (1,2). The Endocrine Society went on to further define vitamin D insufficiency as a level between 21 and 29 ng/mL (2). 1. IOM ([place] of Medicine). 2010. Dietary reference intakes for calcium and D. [place]: The National Academies Press. 2. Catrina HERNANDEZ, [place] GRUBER, Luis Daniel OCONNOR, et al. Evaluation, treatment, and prevention of vitamin D deficiency: an Endocrine Society clinical practice guideline. JCEM. 2010; 96(7):1911-30. Blood BLOOD SPECIMEN / Unknown 01/01/2024 3:43 PM CDT 01/01/2024 Narrative [facility] INSURANCE BILL - 01/02/2024 8:19 AM CDT Performed at: - [address] [id number] Permastone Applicator: Dejon Mcgee PhD, Phone: [phone] Tutu Baron DO LAB - CHEMISTRY [place] Performing Organization Address [facility] Co de Phone Number [facility] INSURANCE BILL [address] [place] [address] * CBC W/O DIFFERENTIAL (01/01/2024 3:43 PM [...] - 01/02/2024 7:12 AM CDT Performed at: [address] [place] [id number] Permastone Applicator: Dejon Mcgee PhD, Phone: [phone] Tutu Baron DO LAB - HEMATOLOGY ORD ERABLES [facility] INSURANCE BILL [address] [place] [address] * COMPREHENSIVE METABOLIC PANEL (01/01/2024 3:43 PM CDT) Only the most recent of15 resultswithin the time period is included. [facility] Signature Glucose 98 70 - 99 mg/dL [facility] [...] 9:13 AM CDT Performed at: 01 - [id number] [place], [place] [id number] Permastone Applicator: Dejon Mcgee PhD, Phone: [phone] Tutu Baron DO LAB - CHEMISTRY OSC[place] [facility] INSURANCE BILL [address] [place] [address] * MAMMO BILAT SCREENING (01/01/2023) Only the [...] CDT Girma French MD 08/26/2021 6:24 PM [facility] - [facility] & Vascular - Event [...] there are any questions. Girma French MD [facility] Care Office Procedure Note Girma French MD - 08/26/2021 6:20 PM CDT [facility] - Event Monitor Name: Elaina Cabrera Lorelei : 1955 Primary care provider: Tutu Baron [...] there are any questions. Girma French MD [facility] - Heart & Vascular Care Office Cassidy M Cesar DO CARDIAC SERVICES OR DERABLES * ECHOCARDIOGRAM 2D WITH DOPPLER (08/25/2021 12:47 PM CDT) 08/25/2021 12:4 7 PM CDT Narrative Procedure Note Bam Martinez MD - 08/25/2021 . [facility] [address] [place] [address] Echocardiography Examination Transthoracic Name: ELAINA MOSELEY [facility]#: MR#: [id number] Admission Number: [id number] Study Date: 08/25/2021 Study Time: 01:10 PM Date Of : 1955 Age: 66 years Height: 63 in. (160.0 cm) Weight: 153 lbs. (69.40 kg) BSA: 1.73 m2 Gender: Female Blood Pressure: 130 mmHg / 72 mmHg Heart Rate: Exam Details Procedure Ordered: ECHOCARDIOGRAM 2D W/DOPPLER Procedure Components: Complete 2D, M-mode, complete spectral Doppler, color Doppler Procedure Status: Routine study Facility Location: [facility] [place] Indication: Palpitations Procedure Railroad Brake Operator: Princess Delgado RDCS Ordering Provider: Cassidy Guerrero [...] PHT 69 ms Mitral Valve MV Dec [place] 4.03 m/s Pulmonic Valve PV PGmax 4 [...] Guerrero DO ECHO ORDERABLES Performing Organization Address City/[facility]/ZIP Co de Phone Number [facility] [address] [place] [id number] * EKG 12-LEAD (07/08/2021) Gabriela Lenz MD ECG ORDERABLES * TSH REFLEX FREE T4 (01/05/2021 2:50 PM CDT) Only the most recent of2 resultswithin the time period is included. [facility] TSH 1.688 0.350 - 4.940 uIU/mL [facility] ACCOUNT BILL Blood BLOOD SPECIMEN / Unknown 01/05/2021 2:50 PM CDT 01/05/2021 Narrative Resulting Agency Comment Lab Testing performed at: [facility] [address] [facility] [id number] Gabriela Lenz MD LAB - CHEMISTRY OSCAR MOLINA [facility] ACCOUNT BILL [address] [place] [address] * MICROALB/CREAT RATIO URINE RANDOM PANEL (01/05/2021 2:49 PM CDT) Only the most recent of2 resultswithin the time period is included. Creatinine Urine 24.84 mg/dL LAB [facility] ACCOUNT [...] Resulting Agency Comment Lab Testing performed at: [facility] [address] [facility] [id number] Gabriela Lenz MD LAB - URINE CHEMISTR Y ORDERABLES [facility] ACCOUNT BILL [address] [place] [address] * (ABNORMAL) CBC WITH DIFFERENTIAL (01/05/2021 2:49 PM CDT) Only the most recent of10 resultswithin the time period is included. Pathologist [facility] WBC 7.6 4.4 - 10.7 x10E9/L [facility] [...] x10E9/L [facility] ACCOUNT BILL Comment:MPV FL BLOOD ([facility]) 9 .5 fl 9.4-12.9 Granulocytes % 63.7 [...] Resulting Agency Comment Lab Testing performed at: [address] [id number] Gabriela Lenz MD LAB - HEMATOLOGY ORD ERABLES [facility] ACCOUNT BILL [address] [place] [address] * URINALYSIS MICROSCOPIC ONLY REFLEXED (01/05/2020 2:19 PM MOBILITY DEVELOPER) Only the most recent of7 resultswithin the [...] test is not needed. 01/05/2020 2:19 PM MOBILITY DEVELOPER 01/05/2020 Narrative Resulting Agency Comment Lab Testing performed at: [facility] [address] [id number] Gabriela Lenz MD LAB - URINALYSIS ORD ERABLES [facility] ACCOUNT BILL [address] [place] [address] * URINALYSIS REFLEX MICROSCOPIC REFLEX CULTURE (01/05/2020 2:19 PM MOBILITY DEVELOPER) Specific [place] UA 1.011 1.005 - 1.030 [facility] ACCOUNT [...] CATCH PROCEDURE / Unknown 01/05/2020 2:19 PM MOBILITY DEVELOPER 01/05/2020 Narrative Resulting Agency Comment Lab Testing performed at: [facility] [address] [id number] Gabriela Lenz MD LAB - URINALYSIS ORD ERABLES [facility] ACCOUNT BILL [address] [place] [address] * HEPATITIS C ANTIBODY (01/05/2020 2:19 PM MOBILITY DEVELOPER) Pathologist [facility] Hepatitis C Antibody Non Reactive Non Reactive [facility] ACCOUNT BILL Comment: Non Reactive - Antibodies to Hepatitis C virus (HCV) were no t detected, result does not exclude early acute HCV infection. Blood BLOOD SPECIMEN / Unknown 01/05/2020 2:19 PM MOBILITY DEVELOPER 01/05/2020 Narrative Resulting Agency Comment Lab Testing performed at: [facility] [address] [place] [id number] Gabriela Lenz MD LAB - CHEMISTRY [place]SC[place] [facility] ACCOUNT BILL [address] [place] [address] * URINALYSIS REFLEX TO MICROSCOPIC NO CULTURE (01/18/2019 9:22 AM MOBILITY DEVELOPER) Only the most recent of11 resultswithin the time period is included. Pathologist [facility] Specific [place] UA 1.018 1.005 - 1.030 [facility] INSURANCE [...] CATCH PROCEDURE / Unknown 01/18/2019 9:22 AM MOBILITY DEVELOPER 01/18/2019 Narrative Resulting Agency Comment Lab Testing performed at: [facility] [address] [facility] [id number] Bam Acosta MD LAB - URINALYSIS ORD ERABLES Performing Organization Address [facility] Co de Phone Number [facility] INSURANCE BILL [address] [place] [address] * MAMMOGRAPHY ORDER (04/13/2017) Only the most [...] AM CDT 07/06/2016 Narrative Resulting Agency Comment [place] [id number] [facility] [id number] Bam Acosta MD LAB - MICROBIOLOGY O RDERABLES Performing Organization Address [facility] de Phone Number [facility] ACCOUNT BILL [address] [place] [address] * MRI SPINE CERVICAL NON CONTRAST (01/07/2016) [...] LDL/HDL (PO REF LAB) (01/14/2015 9:19 AM MOBILITY DEVELOPER) Only the most recent of6 resultswithin the [...] BLOOD SPECIMEN / Unknown 01/14/2015 9:19 AM MOBILITY DEVELOPER 01/14/2015 12:40 PM MOBILITY DEVELOPER Narrative Resulting Agency Comment [address] [phone] Bam Acosta MD LAB - CHEMISTRY [facility] Organization Address City/State/ZIP Co de Phone Number [facility] ACCOUNT BILL * XR ELBOW LEFT 3+ VW MP (10/17/2012) Anatomical Region Laterality Modality Upper Extremity Other Bam Acosta MD DIAGNOSTIC IMAGING O RDERABLES * (ABNORMAL) LIPID PROFILE (01/17/2011 8:08 AM MOBILITY DEVELOPER) Only the most recent of4 resultswithin the [...] BLOOD SPECIMEN / Unknown 01/17/2011 8:08 AM MOBILITY DEVELOPER 01/17/2011 12:48 PM MOBILITY DEVELOPER Narrative Resulting Agency Comment [address] [place] [phone] Bam Acosta MD LAB - CHEMISTRY [place] [facility] ACCOUNT BILL * ALT (05/18/2010 8:36 AM CDT) Only the most recent of4 resultswithin the time period is included. ALT 24 0 - 40 IU/L [facility] ACCOUNT BILL BLOOD SPECIMEN / Unknown 05/18/2010 8:36 AM CDT 05/18/2010 6:51 PM CDT Narrative Resulting Agency Comment [facility] [address] [facility] [phone] Bam Acosta MD LAB - CHEMISTRY [place] Performing Organization Address [facility] de Phone Number [facility] ACCOUNT BILL * XR ANKLE 3+ VW RIGHT (03/29/2010) Anatomical Region Laterality Modality Lower Extremity Other Bam Acosta MD DIAGNOSTIC IMAGING O RDERABLES * URINALYSIS MICROSCOPIC ONLY (02/23/2010 8:10 AM MOBILITY DEVELOPER) Only the most recent of2 resultswithin the [...] test is not needed 02/23/2010 8:10 AM MOBILITY DEVELOPER 02/23/2010 8:46 PM MOBILITY DEVELOPER Narrative Resulting Agency Comment [facility] [place] [id number] [facility] [phone] Bam Acosta MD LAB - URINALYSIS ORD ERABLES [facility] ACCOUNT BILL * BASIC METABOLIC PANEL (CALCIUM TOTAL) (02/23/2010 8:06 AM MOBILITY DEVELOPER) Only the most recent of2 resultswithin the [...] to: Age Male Female <18 years - 27 9 - 25 18 - 39 years 8 - 8 - 20 40 - 59 years 9 - 9 - 60 years and older 10 - 11 - Sodium 142 135 - 145 mmol/L [facility] ACCOUNT BILL Potassium 3.7 3.5 - 5.2 mmol/L [facility] ACCOUNT BILL Chloride 101 97 - 108 mmol/L [facility] ACCOUNT BILL CO2 24 20 - 32 mmol/L [facility] ACCOUNT BILL Calcium 10.1 8.7 - 10.2 mg/dL [facility] ACCOUNT BILL BLOOD SPECIMEN / Unknown 02/23/2010 8:06 AM MOBILITY DEVELOPER 02/23/2010 9:04 PM MOBILITY DEVELOPER Narrative Resulting Agency Comment [facility] [place] [id number] [facility] [phone] Bam Acosta MD LAB - CHEMISTRY [place]SC[place] [facility] ACCOUNT BILL * SKIN TEST PPD - POINT OF CARE (01/13/2010 10:28 AM MOBILITY DEVELOPER) Only the most recent of2 resultswithin the [...] PM CDT Narrative Resulting Agency Comment [facility] [address] [facility] [phone] Bam Acosta MD LAB - SEROLOGY ORDER SHARONDA [facility] ACCOUNT BILL * (ABNORMAL) VARICELLA ZOSTER ANTIBODY IGG (01/04/2010 10:45 AM CDT) Varicella zoster Virus Antibody IgG 1.93(H) 0.00 - 0.90 index [facility] ACCOUNT BILL Comment: Negative <0.91 Equivocal 0.91 - 1.09 Positive >1.09 BLOOD SPECIMEN / Unknown 01/04/2010 10:45 AM CDT 01/04/2010 5:10 PM CDT Narrative Resulting Agency Comment [facility] [address] [phone] Bam Acosta MD LAB - CHEMISTRY [place] [facility] ACCOUNT BILL * DEXA BONE DENSITY [...] (11/01/2005) Bam Acosta MD GI PROCEDURE ORDERAB [facility] Care Teams Gastroenterology Professor Relationship Specialty Start Date End Date Tutu Baron DO [address] [place] [address] PCP - General Internal Medicine 08/25/21 Shannon Poon MD 10/16/09 Mahesh Duke MD [address] [address] 10/16/09 Adonay Lopez MD [address] [place] [id number] Ophthalmology 03/26/13 Krista Tubbs MD [address] [place] [address] Physical Medicine and Rehabilitation 09/09/14 Manjinder Torres MD [facility] [place] [address] Obstetrics and Gynecology 02/07/19 Cassidy Guerrero DO [address] [facility] [address] [place] [address] Cardiovascular Disease 07/25/21
== END 2024-04-21 14:14 | disposition home or self-care (01) ==
LOC: CHSIMG 14:17
PROVIDERS: PCP Podiatrist Foot & Ankle Surgery; Visit Provider Obstetrics & Gynecology
DX: Z78.0 Asymptomatic menopausal state (principal); M85.88 Other specified disorders of bone density and structure, other site
CPT/HCPCS: 77080

== ENCOUNTER 2024-08-25 14:01 | Emergency (ER) | payer MEDICARE, SELFPAY ==
--- NOTE | ~2024-08-25 | XR_ITS ---
EXAM/ PROCEDURE: XR lumbar spine 2-3V - 08/25/2024 14:18 CDT HISTORY: 69 years old Female with Rt sided low back pain with sciatica COMPARISON: None available TECHNIQUE: Three view(s) FINDINGS/ IMPRESSION: S-shaped curvature of the spine. Mild intervertebral disc space narrowing at L5-S1. There are no fractures or dislocations.Intervertebral disc spaces are within normal limits. Reviewed, dictated and finalized at location A.
--- NOTE | 2024-08-25 14:03 | ED_ITS ---
HPI - Back Pain/Injury General Chief Complaint: Back Pain/Injury Stated Complaint: Back Pain Source: patient and RN notes reviewed Mode of arrival: ambulatory Limitations: no limitations History of Present Illness HPI Narrative: Patient is a 69-year-old female who presents to the [facility] with complaints of right-sided low back pain that radiates down the right leg. Patient reports history of chronic low back pain. States that she had a prior injury 25 years ago and has intermittent exacerbations of the pain. She believes that the pain was exacerbated after she had done exercises in order to strengthen the muscles of her outer right hip. States that the pain is aching. Denies numbness. Denies dysfunction of bladder bowel. Denies urinary symptoms. Related Data Home Medications ?Medication ?Instructions ?Recorded ?Confirmed ?Last Taken ?Type atenolol 25 mg tablet mg 08/25/24 Unknown History rosuvastatin 20 mg tablet mg 08/25/24 Unknown History triamterene 37.5 cap 08/25/24 Unknown History mg-hydrochlorothiazide 25 mg capsule Allergies Allergy/AdvReac Type Severity Reaction Status Date / Time buspirone Allergy Mild Unknown Verified 08/25/24 14:14 lidocaine Allergy Mild Unknown Verified 08/25/24 14:14 AMI-KEVIN Allergy Mild Unknown Uncoded 08/25/24 14:14 FLU VACCINE Allergy Mild Unknown Uncoded 08/25/24 14:14 Review of Systems Review of Systems: CONSTITUTIONAL: Denies fever, chills, or sweats. EYES: Denies visual changes, redness, or discharge. ENT: Denies otalgia and sore throat CARDIOVASCULAR: Denies chest pain, palpitations, or edema. RESPIRATORY: Denies cough or dyspnea. GASTROINTESTINAL: Denies abdominal pain, nausea, vomiting, or diarrhea. GENITOURINARY: Denies dysuria or hematuria. SKIN: Denies rash or itching. MUSCULOSKELETAL: Reports low back pain. NEUROLOGIC: Denies headache, numbness, or weakness. Pertinent positives per HPI. PMFSH Comments At the time of my signature, I reviewed and agree with the nursing past medical, surgical, social, and family history. There is no relevant family history pertinent to the patient complaint. Exam Narrative: GENERAL: This is a well-nourished, well-developed patient, in no apparent distress. HEAD: normocephalic, atraumatic. EYES: Sclera clear/white. Vision is grossly intact. EARS: External ears normal. Hearing grossly intact. NOSE: External nose normal with no obvious nasal discharge, nares without redness, no rhinorrhea. THROAT: Mucous membranes moist, posterior pharynx clear. NECK: Neck supple, non-tender without lymphadenopathy, masses or thyromegaly. CARDIOVASCULAR: Regular rate and rhythm without murmurs, gallops, or rubs. RESPIRATORY: Clear to auscultation. Breath sounds equal bilaterally. No wheezes, rales, or rhonchi. GASTROINTESTINAL: Abdomen soft, non-tender, nondistended. Bowel sounds are active. No hepato-splenomegaly, or palpable masses. No guarding. SKIN: warm, intact with no suspicious lesions or rash, good texture and turgor. NEURO: awake, alert, and oriented to person, place and time. There were no obvi ous focal neurologic abnormalities. EXTREMITIES: No clubbing, cyanosis, or edema. No joint tenderness, effusion, or edema noted. BACK: Tenderness in the paraspinous muscles in the lumbar area. No tenderness over the spinous processes of the lumbar vertebrae. No flank tenderness. LEGS: Normal strength including dorsi-flexion and plantar flexion of the feet. Course Course Level of Care: Express Care Visit Vital Signs Vital signs: Vital Signs Temperature 97.8 F 08/25/24 14:10 Pulse Rate 73 08/25/24 14:10 Respiratory Rate 16 08/25/24 14:10 Blood Pressure 156/67 H 08/25/24 14:10 Pulse Oximetry 98 08/25/24 14:10 Oxygen Delivery Room Air 08/25/24 14:10 Temperature 97.8 F 08/25/24 14:10 Pulse Rate 73 08/25/24 14:10 Respiratory Rate 16 08/25/24 14:10 Blood Pressure 156/67 H 08/25/24 14:10 Pulse Oximetry 98 08/25/24 14:10 Oxygen Delivery Room Air 08/25/24 14:10 Reviewed MDM - Back Pain/Injury MDM Narrative Medical decision making narrative: Use the RICE method at home. Take medication as prescribed. If symptoms persist in 1 week after conservative treatment, follow-up with specialist. Differential Diagnosis Differential diagnosis: Likely lumbar radiculopathy, sciatica, strain of lumbar region and other Imaging Data Radiologist's impression: [facility] [address] [place] [address] [place] [address] [phone] XRay Report Signed Patient: Elaina Moseley : 1955 MR#: [id number] Age: 69 Acct:[id number] Loc: [facility] ADM Date: 08/25/24Attending Dr: Ordering Physician: Radha Christensen APRN Date of Service: 08/25/24 Procedure(s): XR lumbar spine 2-3V Accession Number(s): [id number] cc: Radha Christensen APRN; COMMUTER PILOT PHYSICIAN~ EXAM/ PROCEDURE: XR lumbar spine 2-3V - 08/25/2024 14:18 CDT HISTORY: 69 years old Female with Rt sided low back pain with sciatica COMPARISON: None available TECHNIQUE: Three view(s) FINDINGS/ IMPRESSION: S-shaped curvature of the spine. Mild intervertebral disc space narrowing at L5- S1. There are no fractures or dislocations.Intervertebral disc spaces are within normal limits. Reviewed, dictated and finalized at location A. Please be advised this is a medical document. It is intended for [id number] communication. It is written in medical language and may contain unfamiliar abbreviations or verbiage. Medical documents are intended to carry relevant information, facts as evident, and the clinical opinion of the practitioner at the time of the encounter. This report may have been done utilizing a voice recognition system. Attempts have been made to correct errors. However, there may be uncorrected grammatical, spelling, and recognition errors present. The file time of this note does not necessarily represent the time of service. Dictated By: Glenn Newby MD 08/25/24 1453 Signed By: <Electronically signed by Glenn Newby MD in OV> 08/25/24 3468 Critical Care Time Critical Care Time Critical Care Time: No Discharge Plan Discharge Clinical Impression: Acute exacerbation of chronic low back pain Patient Disposition: Home Condition: Stable Instructions: Sciatica (ED), Acute Low Back Pain (ED) Additional Instructions: Use the RICE method at home. Take medication as prescribed. If symptoms persist in 1 week after conservative treatment, follow-up with specialist. Patient Language: Kyrgyz Prescriptions: New dexamethasone 4 mg tablet 4 mg PO DAILY 5 Days Qty: 5 0RF naproxen 500 mg tablet 500 mg PO BID PRN (Reason: pain) Qty: 20 0RF cyclobenzaprine 5 mg tablet 5 mg PO HS PRN (Reason: muscle spasm) Qty: 10 0RF No Action atenolol 25 mg tablet triamterene-hydrochlorothiazid 37.5-25 mg capsule rosuvastatin 20 mg tablet Follow-up/Referrals: PHYSICIAN,COMMUTER PILOT [Primary Care Provider] - Time of Disposition: 15:05
[2024-08-25 14:10] VITALS: BP 156/67; PULSE 73; RESP 16; TEMP 36.6; O2SAT 98
== END 2024-08-25 15:10 | disposition home or self-care (01) ==
PROVIDERS: Emergency Provider Nurse Practitioner
DX: M54.50 Low back pain, unspecified (principal); G89.29 Other chronic pain; I10 Essential (primary) hypertension; E78.00 Pure hypercholesterolemia, unspecified; K21.9 Gastro-esophageal reflux disease without esophagitis
CPT/HCPCS: 72100; 99213; G0463

== ENCOUNTER 2024-09-01 17:31 | Emergency (ER) | payer MEDICARE, SELFPAY ==
--- NOTE | ~2024-09-01 | US_ITS ---
EXAMINATION: US venous doppler LE RT DATE: 09/01/2024 22:37 INDICATION: right leg pain, recent surgery . TECHNIQUE: Grayscale images without and with compression and Doppler images of the right lower extrem ity veins were obtained. COMPARISON: None FINDINGS: The right common femoral vein, profunda (deep) femoral vein, femoral vein, popliteal vein, peroneal v ein, posterior tibial veins, gastrocnemius vein, and greater saphenous vein are patent. IMPRESSION: Patent right lower extremity veins. No evidence of deep venous thrombosis. Reviewed, dictated and finalized at location K.
--- NOTE | ~2024-09-01 | CT_ITS ---
EXAMINATION: CT lumbar spine wo con DATE: 09/01/2024 21:09 INDICATION: low back pain radiating down right leg . TECHNIQUE: Computed tomography (CT) of the lumbar spine was performed without intravenous contrast. A utomated exposure control and iterative reconstruction technique were employed. The dose-length produ ct was 584.59 mGy-cm. COMPARISON: X-ray lumbar spine 08/25/2024. FINDINGS: 5 nonrib-bearing lumbar-type vertebral bodies. Pedicles intact. Normal vertebral body align ment. Mild scoliosis. Vertebral body heights preserved. Multilevel disc space narrowing and marginal osteophytosis, moderate at L5-S1. Multilevel mild facet arthropathy. No severe neural foraminal narro wing. Moderate central canal narrowing at L4-5 secondary to degenerative changes. Mild left neural fo raminal narrowing at L5-S1 secondary to degenerative changes. Mildly lobulated, focal low density in the central uterus, measuring 2.3 cm. IMPRESSION: No acute fracture or traumatic malalignment in the lumbar spine. Focal low density in the uterus, may represent fluid. Consider pelvic ultrasound for further evaluati on. Reviewed, dictated and finalized at location K. IMPRESSION: No acute fracture or traumatic malalignment in the lumbar spine. Focal low density in the uterus, may represent fluid. Consider pelvic ultrasoun d for further evaluation.
--- NOTE | ~2024-09-01 | XR_ITS ---
EXAM: XR hip RT 2V w AP pelvis DATE: 09/01/2024 21:18 HISTORY: right hip pain . COMPARISON: 06/07/2023. FINDINGS: Normal mineralization. No fracture or dislocation. No lytic or blastic lesion. Lumbar dege nerative disc disease. Mild bilateral hip osteoarthritis. No erosion or periosteal change. Soft tissu es within normal limits. IMPRESSION: No acute osseous finding in the pelvis or right hip. Reviewed, dictated and finalized at location K.
--- NOTE | ~2024-09-01 | US_ITS ---
EXAMINATION: US pelvic complete DATE: 09/01/2024 22:37 INDICATION: abnormal CT scan TECHNIQUE: Multiple transabdominal sonographic images of the pelvis were obtained. COMPARISON: CT abdomen pelvis, same date. FINDINGS: Uterus: 8.9 x 2.8 x 5.0 cm. Endometrial complex poorly visualized and appears to be distended by 1.0 x 2.8 cm mixed echogenicity collection comprised of low echogenicity and strand-like intermediate ech ogenicity areas. Right Ovary: Not visualized. No adnexal mass. Left Ovary: Not visualized.No adnexal mass There is no free fluid in the pelvis. IMPRESSION: 1.0 x 2.8 cm mixed echogenicity collection within the endometrial cavity. Consider gynecology referra l for potential sonohysterography and/or endometrial sampling. Reviewed, dictated and finalized at location K. IMPRESSION: 1.0 x 2.8 cm mixed echogenicity collection within the endometrial cavity. Consi clif gynecology referral for potential sonohysterography and/or endometrial samp
--- OUTSIDE RECORDS SUMMARY | 2024-09-01 17:34 | XMS_ITS | Encounter Summary ---
Author Organization [facility] Address [address] [place] [address] Care Team Providers Care Shearing Shed Worker Name Role Phone Bam Acosta MD Primary Care Provider Unavail able Encounter Details Date Type Department Care Team (Latest Contact Info) Description 04/24/2002 Outpatient Historical HIS [facility] HELEN Fernandes, Roger Gould MD NO ADDRESS ON FILE SCREENING MAMM-MAILG NEOPL-OTHER (Primary Dx) Social History Tobacco Use Types Packs/Day Years Used Date Smoking Tobacco: Never Assessed Comments Unknown Sex and Gender Information Value Date Recorded Sex Assigned at Not on file Legal Sex Female 5:12 AM INSOLE ROUNDER Gender Identity Not on file Sexual Orientation Not on file documented as of this encounter Plan of Treatment Not on file documented as of this encounter Visit Diagnoses Diagnosis Other screening mammogram- Primary documented in this encounter Care Teams Shearing Shed Worker Relationship Specialty Start Date End Date Bam Acosta MD PCP - General 02/19/15 documented as of this encounter
--- OUTSIDE RECORDS SUMMARY | 2024-09-01 17:34 | XMS_ITS | Encounter Summary ---
Author Organization [facility] Address 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
--- OUTSIDE RECORDS SUMMARY | 2024-09-01 17:34 | XMS_ITS | Encounter Summary ---
Author Organization [facility] Address 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
--- OUTSIDE RECORDS SUMMARY | 2024-09-01 17:34 | XMS_ITS | Encounter Summary ---
Author Organization [facility] Address [address] [place] [address] Care Team Providers Care Business Services Administrator Name Role Phone Bam Acosta MD Primary Care Provider Unavail able Encounter Details Date Type Department Care Team (Latest Contact Info) Description 05/02/2004 Outpatient Historical HIS [facility] HELEN Fernandes, Roger Gould MD NO ADDRESS ON FILE SCREENING MAMM-MAILG NEOPL-OTHER (Primary Dx) Social History Tobacco Use Types Packs/Day Years Used Date Smoking Tobacco: Never Assessed Comments Unknown Sex and Gender Information Value Date Recorded Sex Assigned at Not on file Legal Sex Female 5:12 AM WEAVING PROFESSOR Gender Identity Not on file Sexual Orientation Not on file documented as of this encounter Plan of Treatment Not on file documented as of this encounter Visit Diagnoses Diagnosis Other screening mammogram- Primary documented in this encounter Care Teams Business Services Administrator Relationship Specialty Start Date End Date Bam Acosta MD PCP - General 02/19/15 documented as of this encounter
--- OUTSIDE RECORDS SUMMARY | 2024-09-01 17:34 | XMS_ITS | Encounter Summary ---
Author Organization [facility] Address [address] [place] [address] Care Team Providers Care Marine Drafter Name Role Phone Bam Acosta MD Primary [...] on file Legal Sex Female 5:12 AM AUDIT TECH Gender Identity Not on file Sexual Orientation Not on file documented as of this encounter Plan of Treatment Not on file documented as of this encounter Visit Diagnoses Diagnosis Special screening for malignant neoplasms, colon- Primary documented in this encounter Care Teams Marine Drafter Relationship Specialty Start Date End Date Bam Acosta MD PCP - General 02/19/15 documented as of this encounter
--- OUTSIDE RECORDS SUMMARY | 2024-09-01 17:34 | XMS_ITS | Clinical Summary ---
Author Organization [facility] Address [address] [place] [address] Care Team Providers Care Buckle Sewer Machine Name Role Phone Bam Acosta MD Primary [...] AQ) 55 mcg nasal spray Administer 1 Serena in each nostril daily. Active famotidine (PEPCID) [...] Ac tive fluticasone propionate (FLONASE) 50 mcg/spray Serena, Suspension nasal inhaler Administer 2 Sprays in [...] Encounters Date Type Department Care Team Description 08/26/2024 External Device Data ST[facility] ABSTRACTION Provider, Abstract 08/19/2024 External Device Data [facility] ABSTRACTION Provider, Abstract 07/24/2024 External Device Data [facility] ABSTRACTION Provider, Abstract 07/23/2024 External Device Data [facility] ABSTRACTION Provider, Abstract 07/22/2024 External Device Data [facility] ABSTRACTION Provider, Abstract from Last 3 Months Family History Medical History Relation Name Comments Alcohol abuse Brother Hypertension Father Gregg [place] [employer] ro[employer], Parkinson s Dementia Other [...] on file Legal Sex Female 5:12 AM ACCESS SPECIALIST Gender Identity Not on file Sexual Orientation Not on file Occupation Industry Job Start Date Job End Date Not on file Not on file Not on file Not on file Last Filed Vital Signs Vital Sign Reading Time Taken Comments Blood Pressure 130/82 04/14/2024 1:07 PM ACCESS SPECIALIST Pulse - - Temperature - - Respiratory Rate - - Oxygen Saturation - - Inhaled Oxygen Concentration - - Weight 76.7 kg (169 lb) 04/14/2024 1:07 PM ACCESS SPECIALIST Height 160 cm (5' 3) 04/14/2024 1:07 PM ACCESS SPECIALIST Body Mass Index 29.94 04/14/2024 1:07 PM ACCESS SPECIALIST Plan of Treatment Health Maintenance Due Date Last Done Comments FIT-DNA Q 3 years 1998 FIT/FOBT Q 1 year 1998 Flex Sig/CT Colonography Q 5 years 1998 COVID-19 Vaccine ( season) 2024 11/09/2023, 05/09/2023, 11/24/2022, Additional history exists BREAST CANCER SCREENING 02/12/2025 02/13/20 24, 01/01/2023, 01/01/2023, Additional history exists COLORECTAL SCREENING 10/26/2025 10/27/2015 Colorectal Cancer Screening 10/26/2025 RSV VACCINE (60+ or ) (1 - 1-dose 75+ series) 2028 DTAP/TDAP/TD VACCINES (3 - T d or Tdap) 08/01/2028 08/01/2018, 05/05/2008, 02/02/1999, Additional history exists OSTEOPOROSIS SCREENING 04/21/2029 , 04/13/2023, 04/11/2022, Additional history exists ZOSTER VACCINE Completed 01/31/2019, 11/04, 07/02/2013 PNEUMOCOCCAL VACCINE 50+ YEARS Completed 0 08/12/2019, 08/01/2018, 02/02/2001 INFLUENZA VACCINE Completed 12/11/2023, , 12/07/2022, Additional history exists Procedures Procedure Name Priority Date/Time Associated Diagnosis Comments CHG DXA BONE DENSITY STUDY 1/> SITES AXIAL SKEL Routine 04/21/2024 1:33 PM ACCESS SPECIALIST MAMMO 3D JUDY SCREEN BILAT W OR WO CAD Routine 02/13/2024 1:24 PM ACCESS SPECIALIST Visit for screening mammogram from Last 3 Months or Most Recently Relevant to Health Maintenance Results * CHG DXA BONE DENSITY STUDY 1/> SITES AXIAL SKEL (04/21/2024 1:33 PM ACCESS SPECIALIST) us Brandon Linda MD [place] - IMAGING Edited Resul t - Final [facility] REACTOR TECHNICIAN WHITEHOUSEER A [facility] 699V IA# [id number] [address] [facility] [address] [place] [address] * MAMMO 3D JUDY SCREEN BILAT W OR WO CAD (02/13/2024 1:24 PM ACCESS SPECIALIST) Anatomical Region Laterality Modality Breast Bilateral Mammography 02/13/2024 1:24 PM ACCESS SPECIALIST Impressions 02/13/2024 1:45 PM ACCESS SPECIALIST IMPRESSION: No mammographic evidence of malignancy. RECOMMENDATIONS: Routine screening mammogram in one year. DICTATION LOCATION: [facility] 02/13/2024 1:45 PM ACCESS SPECIALIST BILATERAL FULL-FIELD DIGITAL SCREENING MAMMOGRAM WITH CAD [...] screening mammogram in one year. DICTATION LOCATION: [facility] Bam Acosta MD MAMMO ORDERABLES Final Result from Last 3 Months or Most Recently Relevant to Health Maintenance Insurance MEDICARE PART A AND B [facility] Care Teams Buckle Sewer Machine Relationship Specialty Start Date End Date Bam Acosta MD PCP - General 02/19/15
--- OUTSIDE RECORDS SUMMARY | 2024-09-01 17:34 | XMS_ITS | Encounter Summary ---
Author Organization [facility] Address [address] [place] [address] Care Team Providers Care Rail Technician Name Role Phone Bam Acosta MD Primary Care Provider Unavail able Encounter Details Date Type Department Care Team (Latest Contact Info) Description 06/26/2007 Outpatient Historical HIS [facility] Roger Sanchez MD NO ADDRESS ON FILE Other Screening Mammogram Social History Tobacco Use Types Packs/Day Years Used Date Smoking Tobacco: Never Assessed Comments Unknown Sex and Gender Information Value Date Recorded Sex Assigned at Not on file Legal Sex Female 5:12 AM SHIPPING ORDER CLERK Gender Identity Not on file Sexual Orientation [...] AM CDT Narrative 06/27/2007 7:51 AM CDT [place] [address] [place], [place] [address] Admit Date: 06/26/2007 DARIO MOSELEY Sex: F Admit Prov: ROGER GARCIA Date: 1955 Primary Care Prov: BAM ACOSTA CMRN: [id number] Room: DINORAHPipo N: [id number] IMAGING SERVICES Ordering Prov: ROGER GARCIA Accession Number: [id number] Interpretation BILATERAL SCREENING DIGITAL MAMMOGRAMS WITH COMPUTER [...] AMK Procedure Note Nell Cárdenas - 06/27/[address] [address] Admit Date: 06/26/2007 DARIO MOSELEY Sex: F Admit Prov: ROGER GARCIA Date: 1955 Primary Care Prov: BAM ACOSTA CMRN: [id number] Room: SAQIB N: [id number] IMAGING SERVICES Ordering Prov: ROGER GARCIA Interpretation [...] mammogram documented in this encounter Care Teams Rail Technician Relationship Specialty Start Date End Date Bam Acosta MD PCP - General 02/19/15 documented as of this encounter
--- OUTSIDE RECORDS SUMMARY | 2024-09-01 17:34 | XMS_ITS | Encounter Summary ---
Author Organization [facility] Address [address] [place] [address] Care Team Providers Care Hatchery Man Name Role Phone Bam Acosta MD Primary Care Provider Unavail able Encounter Details Date Type Department Care Team (Latest Contact Info) Description 04/30/2003 Outpatient Historical HIS [facility] HELEN Fernandes, Roger Gould MD NO ADDRESS ON FILE SCREENING MAMM-MAILG NEOPL-OTHER (Primary Dx) Social History Tobacco Use Types Packs/Day Years Used Date Smoking Tobacco: Never Assessed Comments Unknown Sex and Gender Information Value Date Recorded Sex Assigned at Not on file Legal Sex Female 5:12 AM FOOD VENDOR Gender Identity Not on file Sexual Orientation Not on file documented as of this encounter Plan of Treatment Not on file documented as of this encounter Visit Diagnoses Diagnosis Other screening mammogram- Primary documented in this encounter Care Teams Hatchery Man Relationship Specialty Start Date End Date Bam Acosta MD PCP - General 02/19/15 documented as of this encounter
--- OUTSIDE RECORDS SUMMARY | 2024-09-01 17:34 | XMS_ITS | Patient Health Record ---
Author Organization [employer] Address [address] [facility] [address] [place] [address] Care Team Providers Care Cloth Checker Name Role Phone z(Retired)Bam Acosta MD Primary Care Provid er Unavailable Roger Fernandes Unavailable Unavailable Allergies Allergen (clinical drug ingredient) Drug/Non Drug Allergy documented on EMR Reaction Allergy Type Onset Date Status Ami-annie (uncoded) Unknown Allergy Ac tive Vaccine product containing Influenza virus antigen (medicinal product) Flu shot (uncoded) Unknown Allergy Ac tive buspirone BusPIRone HCl Unknown Drug Allergy Act felicity lidocaine Lidocaine Unknown Drug Allergy Active Reason For Referral No Information Medications Medication SIG (Take, Route, Frequency, Duration) Notes Start Date End Date Status Meclizine HCl Active Hydrocortisone Jason-Pramoxine 2.5-1 % 1 application to affected area as needed Rectal carlos a for 30 day(s) Active Triamterene-HCTZ Act felicity Align Active Simvastatin Active ZyrTEC Active Vitamin D Active Nasacort AQ Active Advil Active guaiFENesin Active Famotidine 40 MG 1 tablet Orally Once a day Active Social History Tobacco Use: Social History Observation Description Date Details (start date - stop date) Never Smoker NA - NA Tobacco Use/Smoking Question Answer Notes Are you a nonsmoker Problems Problem Type SNOMED Code ICD Code Onset Dates Problem Status W/U Status Risk Notes Problem 32853127 External hemorrhoids (K64.4) Active confirmed Plan Of Treatment No Information Insurance Providers Payer Name Payer Address Payer Phone Subscriber Number Group Number Insured Name Patient Relationship to Insured Coverage Start Date Coverage End Date Blue Access Choice PPO E2 [address] [place] [address] [id number] Homer Moseley Spouse - patient is the spouse of the insured Medical (General) History Medical History History ICD Code GERD High blood pressure Surgical History Surgery Date(Month/Year) Tonsillectomy Cholecystectomy section Fibroid removal Colonoscopy 2015
--- OUTSIDE RECORDS SUMMARY | 2024-09-01 17:34 | XMS_ITS | Encounter Summary ---
Author Organization [facility] Address [address] [place] [address] Care Team Providers Care Cellophaner Name Role Phone Bam Acosta MD Primary Care Provider Unavail able Encounter Details Date Type Department Care Team (Latest Contact Info) Description 2005 Outpatient Historical HIS [facility] HELEN Fernandes, Roger Gould MD NO ADDRESS ON FILE Other Screening Mammogram (Primary Dx) Social History Tobacco Use Types Packs/Day Years Used Date Smoking Tobacco: Never Assessed Comments Unknown Sex and Gender Information Value Date Recorded Sex Assigned at Not on file Legal Sex Female 5:12 AM ABSORPTION AND ADSORPTION ENGINEER Gender Identity Not on file Sexual Orientation Not on file documented as of this encounter Plan of Treatment Not on file documented as of this encounter Visit Diagnoses Diagnosis Other screening mammogram- Primary documented in this encounter Care Teams Cellophaner Relationship Specialty Start Date End Date Bam Acosta MD PCP - General 02/19/15 documented as of this encounter
--- OUTSIDE RECORDS SUMMARY | 2024-09-01 17:34 | XMS_ITS | Clinical Summary ---
Author Organization [facility] Address [address] [facility] [place] [address] Care Team Providers Care Creasing Machine Operator Name Role Phone Shannon Poon MD Unavailable UnavailMahesh Hampton MD Unavailable [phone] Adonay Lopez MD Unavailable Unavailable Krista Tubbs MD Unavailable [phone] Manjinder Torres MD Unavailable Cassidy Guerrero DO Unavailable [phone] Tutu Baron DO Primary Care Provider [phone] Source Comments [facility],non-owned Affiliates and Associated Physician Practices is amultiple site organization consisting of ambulatory clinics and hospital sitesin [place], [place], [place] and [place]. This disclosure is being madepursuant to the Care Everywhere program and may not contain all information available regarding this patient. Last updated 17.[facility] Allergies Active Allergy Reactions Criticality Noted Date Comments Ami-Christopher 04/17/2008 Intolerant Buspirone Hcl 04/17/2008 Insomnia Buspirone Other 03/28/2019 insomina Lidocaine Hcl Other 04/17/2008 Crying, and felt panic Medications * Be aware that medications may not be up to date on this document. Alwaysverify current medications with the patient. ADVIL 200 MG TABS Take 2 (two) [...] fluticasone propionate (FLONASE) 50 MCG/ACT nasal spray Ririe 2 (two) sprays into the nose once daily Active bifantis (ALIGN) capsule Take 1 (one) capsule by mouth once daily Active Other Take 2 Each by mouth once daily inulin (FIBER GUMMIES ORAL) Active ALBUTEROL SULFATE IN Take 2 puffs every 4hrs as needed Active bismuth subsalicylate (Pepto-Bismol Max Strength) 525 [...] TABLET BY MOUTH DAILY 90 tablet 3 04/01/19 25 Active triamterene-hydro CHLOROthiazide (Dyazide) 37.5-25 MG capsule TAKE 1 CAPSULE BY MOUTH DAILY 90 capsule 3 04/01/19 25 Active atenolol (Tenormin) 25 MG tabletIndications :Essential hypertension with goal blood pressure less than 130/80,Palpitatio ns TAKE 1 TABLET BY MOUTH AT BEDTIME 90 tablet 3 04/28/19 25 Active Active Problems Problem Noted Date Diagnosed Date [...] per echo, August 2009, Dr. Poon Immunizations Immunization Administration Dates Next Due COVID MODERNA 12+ [...] (IIV4) 12/05/2019 MODERNA SARS-COV-2 COVID-19 VACCINE 0.25ML 06/15/2024,06/13/2021 PNEUMOCOCCAL PPSV23 08/12/2019,02/02/2001 Pneumococcal Pcv13 Conj 08/01/2018 [...] Recorded Patient Health Questionnaire-2 Score 0 01/01/2024 Comments No Sex and Gender Information Value Date Recorded Sex Assigned at Not on file Legal Sex Female 9:08 AM AEROBICS INSTRUCTOR Gender Identity Not on file Sexual Orientation Not on file Occupation Industry Job Start Date Job End Date homemaker Not on file Not on file Not on file retired Not on file Not on file Not on file Last Filed Vital Signs Vital Sign Reading Time Taken Comments Blood Pressure 118/66 01/10/2024 11:20 AM AEROBICS INSTRUCTOR Pulse 76 01/10/2024 11:20 AM AEROBICS INSTRUCTOR Temperature 36.8 C (98.2 F) 01/01/2024 3:06 PM CDT Respiratory Rate 18 06/08/2020 11:59 AM CDT Oxygen Saturation 98% 01/01/2024 3:06 PM CDT Inhaled Oxygen Concentration - - Weight 77.3 kg (170 lb 6.4 oz) 01/10/2024 11:20 AM AEROBICS INSTRUCTOR Height 160 cm (5' 3) 01/01/2024 3:06 PM CDT Body Mass Index 30.19 01/01/2024 3:06 PM CDT Plan of Treatment Upcoming Encounters Date Type Department Care Team (Late st Contact Info) Description 01/01/2025 1:40 PM CDT Office Visit [facility] Medical [facility] - Internal Medicine [address] [facility] [place] [address] Tutu Baron DO [address] [facility] [place] [phone] 01/09/2025 1:00 PM AEROBICS INSTRUCTOR Office Visit [facility] [address] [place] [address] [address] [place], [place] [id number] Cassidy Guerrero DO [facility] [facility] [address] [place], [place] [id number] Health Maintenance Due Date Last Done Comments COLOGUARD (AGES 45-75) - COLON CA SCREENING 1955 CT COLONOGRAPHY - COLON CA SCREENING 1955 FIT - COLON CA SCREENING 1955 FLEX SIG - COLON CA SCREENING 1955 DEPRESSION SCREENING 03/05/2024 01/01/2024, 06/29/2022, 07/01/2021 COVID-19 VACCINE ( season) 2024 06/15/2024, 11/09/2023, 11/09/2023, Additional history exists MEDICARE AWV 12 MONTHS 12/31/2024 01/01/2024 MAMMOGRAM 01/01/2025 01/01/2023, 10/, 01/01/2023, Additional history exists COLON MONITORING 10/26/2025 [...] complete this topic MENINGOCOCCAL (Group B) VACCINE SHARED DECISION-MAKING Aged Out No longer eligible based on patient's age to complete this topic MENINGOCOCCAL GROUPS A/C/Y/W VACCINE Aged Out No longer eligible based on patient's age to complete this topic Goals Goal Patient Goal Type Associated Problems Recent Progress Patient-Stated? Author Blood Pressure < 140/90 Blood Pressure 118/66(2023 11:20 AM AEROBICS INSTRUCTOR) No Felicity Hess Exercise 3X per week (30 min per time) Exercise On track( 015 11:08 AM AEROBICS INSTRUCTOR) No Pam Garcia MA Procedures Procedure Name Priority Date/Time Associated Diagnosis Comments COMPREHENSIVE METABOLIC PANEL Routine 01/01/2024 3:43 PM CDT Essential hypertension MAMMO BILAT SCREENING Routine 01/01/2023 Screening mammogram for breast cancer HEPATITIS C ANTIBODY Routine 01/05/2020 2:19 PM AEROBICS INSTRUCTOR Need for hepatitis C screening test ENDOSCOPY, [...] 01/02/2024 9:13 AM CDT Performed at: [address] [id number] Staff Air Tactical Officer: Dejon Mcgee PhD, Phone: [phone] Tutu Baron DO LAB - CHEMISTRY ORDERABLES Final Result [facility] INSURANCE BILL [address] [place] [address] * MAMMO BILAT SCREENING (01/01/2023) Anatomical Region Laterality Modality Breast Bilateral Mammography 01/01/2023 Tutu Baron DO MAMMO ORDERABLES Final Result * HEPATITIS C ANTIBODY (01/05/2020 2:19 PM AEROBICS INSTRUCTOR) Hepatitis C Antibody Non Reactive Non Reactive [facility] ACCOUNT BILL Comment: Non Reactive - Antibodies to Hepatitis C virus (HCV) were no t detected, result does not exclude early acute HCV infection. Blood BLOOD SPECIMEN / Unknown 01/05/2020 2:19 PM AEROBICS INSTRUCTOR 01/05/2020 Narrative Resulting Agency Comment Lab Testing performed at: [facility] [address] [facility] [id number] Gabriela Lenz MD LAB - CHEMISTRY ORDERABLES Final Result Performing Organization Address [facility] Co de Phone Number [facility] ACCOUNT BILL [address] [place] [address] * ENDOSCOPY, COLON, SCREENING (10/27/2015) Bam Acosta MD GI PROCEDURE ORDERABLES Tracy l Result * DEXA BONE DENSITY 2 SITES (10/12/2009) Anatomical Region Laterality Modality Other Bam Acosta MD DEXA ORDERABLES Final Result from Last 3 Months or Most Recently Relevant to Health Maintenance Insurance MEDICARE COMMERCIAL GENERIC Care Teams Creasing Machine Operator Relationship Specialty Start Date End Date Tutu Baron DO [address] [place] [phone] PCP - General Internal Medicine 08/25/21 Shannon Poon MD 10/16/09 Mahesh Duke MD [address] [phone] 10/16/09 Adonay Lopez MD [address] [address] Ophthalmology 03/26/13 Krista Tubbs MD [address] [place] [phone] Physical Medicine and Rehabilitation 09/09/14 Manjinder Torres MD [address] [place] [address] Obstetrics and Gynecology 02/07/19 Cassidy Guerrero DO [address] [facility] [address] [place] [address] Cardiovascular Disease 07/25/21
--- OUTSIDE RECORDS SUMMARY | 2024-09-01 17:34 | XMS_ITS | Encounter Summary ---
Author Organization [facility] Address [address] [place] [address] Care Team Providers Care Guillotine Operator Name Role Phone Bam Acosta MD Primary Care Provider Unavail able Encounter Details Date Type Department Care Team (Latest Contact Info) Description 06/26/2008 Outpatient Historical [facility] Roger Sanchez MD NO ADDRESS ON FILE Other Screening Mammogram Social History Tobacco Use Types Packs/Day Years Used Date Smoking Tobacco: Never Assessed Comments Unknown Sex and Gender Information Value Date Recorded Sex Assigned at Not on file Legal Sex Female 5:12 AM DIRECTOR OF QUANTITATIVE RESEARCH Gender Identity Not on file Sexual Orientation [...] AM CDT Narrative 06/26/2008 2:37 PM CDT [address] [place], [place] [address] Admit Date: 06/26/2008 DARIO MOSELEY Sex: F Admit Prov: ROGER GARCIA Date: 1955 Primary Care Prov: BAM ACOSTA CMRN: [id number] Room: Pipo N: [id number] IMAGING SERVICES Ordering Prov: ROGER GARCIA Accession Number: [id number] Interpretation DIGITAL SCREENING MAMMOGRAM WITH COMPUTER-ASSISTED DIAGNOSIS [...] Procedure Note Malgorzata Gerber MD - 06/26/2008 [address] [place], [place] [address] Admit Date: 06/26/2008 DARIO MOSELEY Sex: F Admit Prov: JOSEROGER Date: 1955 Primary Care Prov: BAM ACOSTA CMRN: [id number] Room: DINORAHPipo N: [id number] IMAGING SERVICES Ordering Prov: ROGER GARCIA Interpretation [...] mammogram documented in this encounter Care Teams Guillotine Operator Relationship Specialty Start Date End Date Bam Acosta MD PCP - General 02/19/15 documented as of this encounter
--- NOTE | 2024-09-01 17:43 | ED.BACK ---
HPI - Back Pain/Injury General Chief Complaint: Back Pain/Injury <Siri Boo, [employer] CORE LAYER - Last Filed: 09/01/24 18:01> Stated Complaint: back pain <Siri Boo [employer] CORE LAYER - Last Filed: 09/01/24 18:01> Time Seen by Provider: 09/01/24 17:35 <Siri Boo [employer] CORE LAYER - Last Filed: 09/01/24 18:01> Focused HPI: Patient is a 69-year-old female who presents to the ER with complaints of severe right flank pain. She reports she was at urgent care approximately 5 days ago where they put her on naproxen, muscle relaxants, and steroids. Patient reports these medications helped relieve her symptoms but she recently finished the steroids and the pain returned. Her reports pain was so bad earlier today the patient was lying on the floor writing. She denies any urinary symptoms, saddle anesthesia, muscle weakness, or recent fevers. Patient endorses a medical history of a back injury 25 years ago and sciatica. GENERAL: Ill-appearing, well-nourished, and in acute distress d/t pain. HEAD: Normocephalic, atraumatic. CHEST: Clear to auscultation. ?No respiratory distress. HEART: Regular rate and rhythm.? NEURO: ?Alert and oriented x3. Patient screened in triage and initial orders placed.? ?Additional care and disposition to be based upon?diagnostic testing and treatment. <Siri Boo, [employer] CORE LAYER - Last Filed: 09/01/24 18:01> Focused HPI: Patient is a 69-year-old female who presents to the ER with complaints of severe right flank pain. She reports she was at urgent care approximately 5 days ago where they put her on naproxen, muscle relaxants, and steroids. Patient reports these medications helped relieve her symptoms but she recently finished the steroids and the pain returned. Her reports pain was so bad earlier today the patient was lying on the floor writhing. She denies any urinary symptoms, saddle anesthesia, muscle weakness, or recent fevers. Patient endorses a medical history of a back injury 25 years ago and sciatica. GENERAL: Ill-appearing, well-nourished, and in acute distress d/t pain. HEAD: Normocephalic, atraumatic. CHEST: Clear to auscultation. ?No respiratory distress. HEART: Regular rate and rhythm.? NEURO: ?Alert and oriented x3. Patient screened in triage and initial orders placed.? ?Additional care and disposition to be based upon?diagnostic testing and treatment. <Glendy Sen PA-C - Last Filed: 09/02/24 00:45> Related Data Home Medications: Home Medications ?Medication ?Instructions ?Recorded ?Confirmed ?Last Taken ?Type atenolol 25 mg tablet mg 08/25/24 Unknown History rosuvastatin 20 mg tablet mg 08/25/24 Unknown History triamterene 37.5 cap 08/25/24 Unknown History mg-hydrochlorothiazide 25 mg capsule <Siri Boo, [employer] CORE LAYER - Last Filed: 09/01/24 18:01> Allergies/Adverse Reactions: Allergies Allergy/AdvReac Type Severity Reaction Status Date / Time buspirone Allergy Mild Unknown Verified 08/25/24 14:14 lidocaine Allergy Mild Unknown Verified 08/25/24 14:14 AMI-KEVIN Allergy Mild Unknown Uncoded 08/25/24 14:14 FLU VACCINE Allergy Mild Unknown Uncoded 08/25/24 14:14 <Siri Boo, [employer] CORE LAYER - Last Filed: 09/01/24 18:01> Review of Systems Review of Systems: All systems reviewed & are unremarkable except as noted in HPI and below <Glendy Sen PA-C - Last Filed: 09/02/24 00:45> Exam Narrative: GENERAL: Well-appearing, well-nourished, and in no acute distress. HEAD: Normocephalic, atraumatic. EYES: EOMI. CHEST: Clear to auscultation. No respiratory distress. No wheezes rales or rhonchi HEART: Regular rate and rhythm. No murmur heard. Normal peripheral pulses. ABDOMEN: Soft, nontender, nondistended, normal active bowel sounds. EXTREMITIES: Normal range of motion. No edema. Strength equal in bilateral lower extremities (5/5) SKIN: Warm, dry, no rash. NEURO: No focal deficits. Alert and oriented x3. PSYCH: Normal mood and affect <Glendy Sen PA-C - Last Filed: 09/02/24 00:45> Course Course Emergency Course: patient updated on her workup. Resting comfortably. Agrees with plan of care <Glendy Sen PA-C - Last Filed: 09/02/24 00:45> Vital Signs Vital signs: Vital Signs Temperature 98.2 F 09/01/24 17:44 Pulse Rate 85 09/01/24 17:44 Respiratory Rate 18 09/01/24 17:44 Blood Pressure 154/76 H 09/01/24 17:44 Pulse Oximetry 98 09/01/24 17:44 Oxygen Delivery Room Air 09/01/24 17:44 Temperature 98.2 F 09/01/24 17:44 Pulse Rate 85 09/01/24 17:44 Respiratory Rate 18 09/01/24 17:44 Blood Pressure 154/76 H 09/01/24 17:44 Pulse Oximetry 98 09/01/24 17:44 Oxygen Delivery Room Air 09/01/24 17:44 <Siri Boo, [employer] L[employer] CORE LAYER - Last Filed: 09/01/24 18:01> Vital Signs Temperature 98.2 F 09/01/24 17:44 Pulse Rate 85 09/01/24 17:44 Respiratory Rate 18 09/01/24 17:44 Blood Pressure 154/76 H 09/01/24 17:44 Pulse Oximetry 98 09/01/24 17:44 Oxygen Delivery Room Air 09/01/24 17:44 Temperature 98.2 F 09/01/24 17:44 Pulse Rate 85 09/01/24 17:44 Respiratory Rate 18 09/01/24 17:44 Blood Pressure 154/76 H 09/01/24 17:44 Pulse Oximetry 98 09/01/24 17:44 Oxygen Delivery Room Air 09/01/24 17:44 <Glendy Sen PA-C - Last Filed: 09/02/24 00:45> MDM - Back Pain/Injury MDM Narrative Medical decision making narrative: Patient presents to the emergency department for right-sided low back pain hip pain. Ongoing over the last week. Reports history of chronic low back issues. No recent injuries or trauma. Denies saddle anesthesia, bowel/bladder incontinence. She is afebrile and nontoxic appearing. CBC with leukocytosis to 15.8, likely due to recent steroid use. Metabolic panel with hyponatremia with sodium 127, patient does endorse not eating or drinking much today. She was hydrated with a L of IV fluids. Recheck 131. Urine without evidence of infection. Lumbar spine CT shows no acute fracture traumatic malalignment. Focal low density in the uterus, recommend pelvic ultrasound. Pelvic ultrasound is obtained which shows a 1 x 2.8 cm mixed echogenicity collection within the endometrial cavity. Consider gynecology referral for potential sonohysterography and/or endometrial sampling. Right lower extremity venous Doppler without evidence of DVT. patient updated on her workup. Resting comfortably. Agrees with plan of care. She is to follow up with her PCP and embroidery assistant. She was given warnings to return to the ER <Glendy Sen PA-C - Last Filed: 09/02/24 00:45> Differential Diagnosis Differential diagnosis: Likely lumbar radiculopathy, sciatica, strain of lumbar region and other (Electrolyte derangement, dehydration, UTI, DVT, fibroid, uterine cancer, osteoarthritis) <Glendy Sen PA-C - Last Filed: 09/02/24 00:45> Lab Data Attestation: I reviewed the patient's lab results. <Glendy Sne PA-C - Last Filed: 09/02/24 00:45> Result diagrams: 09/01/24 19:12 09/01/24 23:55 <Siri Boo APRN - Last Filed: 09/01/24 18:01> Labs: Lab Results 09/01/24 09/01/24 09/01/24 Range/Units 19:12 19:17 23:55 WBC 15.8 H (4.5-10.0) K/mm3 RBC 4.70 (4.2-5.4) M/mm3 Hgb 14.2 (12.0-15.0) g/dL Hct 40.5 (37.0-47.0) % MCV 86.2 (80-100) fl MCH 30.2 (26-34) pg MCHC 35.1 (32-36) g/dl RDW 12.1 (11.5-14.5) % Plt Count 288 (150-375) k/mm3 MPV 8.8 (7.4-10.4) fl Immature Gran % (Auto) 0.7 H (0-0.5) % Neut % (Auto) 71.3 (45.5-73.1) % Lymph % (Auto) 19.7 (18.3-44.2) % Terrell % (Auto) 7.0 (2.6-8.5) % Eos % (Auto) 0.9 (0-4.4) % Baso % (Auto) 0.4 (0.2-1.2) % Lymph # (Auto) 3.12 (0.9-3.2) K/mm3 Terrell # (Auto) 1.1 H (0.1-0.6) K/mm3 Eos # (Auto) 0.1 (0-0.3) K/mm3 Baso # (Auto) 0.1 (0.0-0.1) K/mm3 Abs Immat Gran (auto) 0.11 H (0.00-0.031) K/mm3 Absolute Neuts (auto) 11.3 H (1.3-6.7) K/mm3 Absolute Nucleated RBC 0.000 (0.0-0.012) K/mm3 Nucleated RBC % 0.0 (0.0-0.2) % Sodium 127 L 131 L (137-145) mmol/L Potassium 3.6 3.6 (3.4-5.0) mmol/L Chloride 95 L 99 (98-107) mmol/L Carbon Dioxide 25 26 (22-30) mmol/L Anion Gap 7 6 (4-12) mmol/L BUN 15 14 (7-17) mg/dL Creatinine 0.67 L 0.64 L (0.7-1.0) mg/dL Estim Creat Clear Calc 65 68 ml/min Estimated GFR > 60 > 60 (59 - ) Glucose 100 97 (65-110) mg/dL Calcium 9.1 8.6 (8.4-10.2) mg/dL Total Bilirubin 1.6 H (0.2-1.3) mg/dL AST 32 (14-36) U/L ALT 29 (6-35) U/L Alkaline Phosphatase 80 (38-126) U/L Total Protein 6.3 (6.3-8.2) g/dL Albumin 3.6 (3.5-5.1) g/dL Urine Color Yellow (Yellow) Urine Appearance Cloudy H (Clear) Urine pH 6.5 (5.0-9.0) Ur Specific [place] 1.016 (1.001-1.035) Urine Protein Negative (Negative) mg/dL Urine Glucose (UA) Negative (Negative) mg/dL Urine Ketones Negative (Negative) mg/dL Ur Blood (Man) Negative (Negative) Urine Nitrate Negative (Negative) Urine Bilirubin Negative (Negative) Urine Urobilinogen 1.0 (<2.0) mg/dL Add Ur Microanalysis Reviewed Leukocyte Esterase Rfl 1+ H (Negative) MIRIAN/UL Urine RBC 0-2 (0-2) /hpf Urine WBC 0-5 (0-3) /hpf Ur Squamous Epith Cells None seen (Few) /hpf Urine Bacteria None seen /hpf Urine Casts 0-2 <Siri Boo, [employer] CORE LAYER - Last Filed: 09/01/24 18:01> Lab Results 09/01/24 09/01/24 09/01/24 Range/Units 19:12 19:17 23:55 WBC 15.8 H (4.5-10.0) K/mm3 RBC 4.70 (4.2-5.4) M/mm3 Hgb 14.2 (12.0-15.0) g/dL Hct 40.5 (37.0-47.0) % MCV 86.2 (80-100) fl MCH 30.2 (26-34) pg MCHC 35.1 (32-36) g/dl RDW 12.1 (11.5-14.5) % Plt Count 288 (150-375) k/mm3 MPV 8.8 (7.4-10.4) fl Immature Gran % (Auto) 0.7 H (0-0.5) % Neut % (Auto) 71.3 (45.5-73.1) % Lymph % (Auto) 19.7 (18.3-44.2) % Terrell % (Auto) 7.0 (2.6-8.5) % Eos % (Auto) 0.9 (0-4.4) % Baso % (Auto) 0.4 (0.2-1.2) % Lymph # (Auto) 3.12 (0.9-3.2) K/mm3 Terrell # (Auto) 1.1 H (0.1-0.6) K/mm3 Eos # (Auto) 0.1 (0-0.3) K/mm3 Baso # (Auto) 0.1 (0.0-0.1) K/mm3 Abs Immat Gran (auto) 0.11 H (0.00-0.031) K/mm3 Absolute Neuts (auto) 11.3 H (1.3-6.7) K/mm3 Absolute Nucleated RBC 0.000 (0.0-0.012) K/mm3 Nucleated RBC % 0.0 (0.0-0.2) % Sodium 127 L 131 L (137-145) mmol/L Potassium 3.6 3.6 (3.4-5.0) mmol/L Chloride 95 L 99 (98-107) mmol/L Carbon Dioxide 25 26 (22-30) mmol/L Anion Gap 7 6 (4-12) mmol/L BUN 15 14 (7-17) mg/dL Creatinine 0.67 L 0.64 L (0.7-1.0) mg/dL Estim Creat Clear Calc 65 68 ml/min Estimated GFR > 60 > 60 (59 - ) Glucose 100 97 (65-110) mg/dL Calcium 9.1 8.6 (8.4-10.2) mg/dL Total Bilirubin 1.6 H (0.2-1.3) mg/dL AST 32 (14-36) U/L ALT 29 (6-35) U/L Alkaline Phosphatase 80 (38-126) U/L Total Protein 6.3 (6.3-8.2) g/dL Albumin 3.6 (3.5-5.1) g/dL Urine Color Yellow (Yellow) Urine Appearance Cloudy H (Clear) Urine pH 6.5 (5.0-9.0) Ur Specific [place] 1.016 (1.001-1.035) Urine Protein Negative (Negative) mg/dL Urine Glucose (UA) Negative (Negative) mg/dL Urine Ketones Negative (Negative) mg/dL Ur Blood (Man) Negative (Negative) Urine Nitrate Negative (Negative) Urine Bilirubin Negative (Negative) Urine Urobilinogen 1.0 (<2.0) mg/dL Add Ur Microanalysis Reviewed Leukocyte Esterase Rfl 1+ H (Negative) MIRIAN/UL Urine RBC 0-2 (0-2) /hpf Urine WBC 0-5 (0-3) /hpf Ur Squamous Epith Cells None seen (Few) /hpf Urine Bacteria None seen /hpf Urine Casts 0-2 <Glendy Sen PA-C - Last Filed: 09/02/24 00:45> Imaging Data Radiologist's impression: ITS Impressions Lumbar Spine CT 09/01/24 21:48 IMPRESSION: No acute fracture or traumatic malalignment in the lumbar spine. Focal low density in the uterus, may represent fluid. Consider pelvic ultrasound for further evaluation. Hip/Pelvis X-Ray 09/01/24 21:55 IMPRESSION: No acute osseous finding in the pelvis or right hip. Venous Doppler Study 09/01/24 22:39 IMPRESSION: Patent right lower extremity veins. No evidence of deep venous thrombosis. Pelvis Ultrasound 09/01/24 22:46 IMPRESSION: 1.0 x 2.8 cm mixed echogenicity collection within the endometrial cavity. Consider gynecology referral for potential sonohysterography and/or endometrial sampling. <Glendy Sen PA-C - Last Filed: 09/02/24 00:45> Critical Care Time Critical Care Time Critical Care Time: No <Glendy Sen PA-C - Last Filed: 09/02/24 00:45> Discharge Plan Discharge Clinical Impression: Lumbar radiculopathy, Acute hyponatremia, Abnormal pelvic ultrasound <Siri Boo APRN - Last Filed: 09/01/24 18:01> Patient Disposition: Home <Siri Boo APRN - Last Filed: 09/01/24 18:01> Condition: Improved <Siri Boo APRN - Last Filed: 09/01/24 18:01> Instructions: Hyponatremia (ED), Lumbar Radiculopathy (ED) <Siri Boo APRN - Last Filed: 09/01/24 18:01> Additional Instructions: Return to the emergency department if you experience fever, chest pain, shortness of breath, abdominal pain with nausea and vomiting, weakness, numbness, bowel/bladder incontinence, or any other symptoms that are concerning to you. Rest. Remain well hydrated. Heat and/or ice to the area. Over the counter pain medication as needed. Muscle relaxer as needed for pain. Steroid taper as prescribed Follow up with your primary care doctor You should also follow up with your embroidery assistant for further evaluation of abnormal spot seen in your endometrium on your imaging <Siri Boo APRN - Last Filed: 09/01/24 18:01> Patient Language: Yemeni <Siri Boo APRN - Last Filed: 09/01/24 18:01> Prescriptions: New methylprednisolone 4 mg tablets,dose pack See Rx Instructions .ROUTE .COMPLEX Qty: 21 0RF Rx Instructions: orally per package directions cyclobenzaprine 10 mg tablet 10 mg PO TID PRN (Reason: muscle spasm) Qty: 14 0RF No Action atenolol 25 mg tablet triamterene-hydrochlorothiazid 37.5-25 mg capsule rosuvastatin 20 mg tablet dexamethasone 4 mg tablet 4 mg PO DAILY 5 Days Qty: 5 0RF naproxen 500 mg tablet 500 mg PO BID PRN (Reason: pain) Qty: 20 0RF cyclobenzaprine 5 mg tablet 5 mg PO HS PRN (Reason: muscle spasm) Qty: 10 0RF <Siri Boo APRN - Last Filed: 09/01/24 18:01> Follow-up/Referrals: Rosalinda Rodriguez MD [Physician] - PHYSICIAN,RESUME WRITER [Non-Staff] - <Siri Boo APRN - Last Filed: 09/01/24 18:01>
[2024-09-01 17:44] VITALS: BP 154/76; PULSE 85; RESP 18; TEMP 36.8; O2SAT 98
[2024-09-01 19:16] LABS: Hematocrit 40.5 % (37.0-47.0); Hemoglobin 14.2 g/dL (12.0-15.0); Immature Granulocyte Percent A 0.7 % (0-0.5); Lymphocytes Absolute Auto 3.12 K/mm3 (0.9-3.2); Mean Corpuscular HGB Conc 35.1 g/dl (32-36); Mean Corpuscular Hemoglobin 30.2 pg (26-34); Mean Corpuscular Volume 86.2 fl (80-100); Nucleated Red Blood Cells Absolute Auto 0.000 K/mm3 (0.0-0.012); Nucleated Red Blood Cells Perc 0.0 % (0.0-0.2); Platelet Count Result 288 k/mm3 (150-375); Red Blood Count 4.70 M/mm3 (4.2-5.4); White Blood Count 15.8 K/mm3 (4.5-10.0)
[2024-09-01 19:28] LABS: Alanine Aminotransferase 29 U/L (6-35); Albumin Level 3.6 g/dL (3.5-5.1); Alkaline Phosphatase 80 U/L (38-126); Anion Gap 7 mmol/L (4-12); Aspartate Amino Transferase 32 U/L (14-36); Bilirubin,Total 1.6 mg/dL (0.2-1.3); Blood Urea Nitrogen 15 mg/dL (7-17); Calcium 9.1 mg/dL (8.4-10.2); Carbon Dioxide 25 mmol/L (22-30); Chloride 95 mmol/L (98-107); Estimated CRCL calculation 65 ml/min; Estimated Glomerular Filt Rate > 60; Glucose 100 mg/dL (65-110); Potassium 3.6 mmol/L (3.4-5.0); Sodium 127 mmol/L (137-145); Total Protein 6.3 g/dL (6.3-8.2)
[2024-09-01 19:54] LABS: Add Urine Microscopic? YES; Appearance Urine Cloudy (Clear); Glucose Urine UA Negative (Negative); Leukocyte Esterase Ur 1+ LEU/UL (Negative); Need Manual Microscopic Reviewed; Nitrate Urine Negative (Negative); Non Pathogenic Casts 0-2; Specific Grav Ur 1.016 (1.001-1.035)
[2024-09-01] MEDS: KETOROLAC (*BKC) 60 MG/2 ML VIAL IM (20:10)
--- OUTSIDE RECORDS SUMMARY | 2024-09-01 20:19 | XMS_ITS | Encounter Summary ---
Author Organization [facility] Address [address] [place] [address] Care Team Providers Care Student Success Counselor Name Role Phone Bam Acosta MD Primary Care Provider Unavail able Encounter Details Date Type Department Care Team (Latest Contact Info) Description 06/26/2008 Outpatient Historical HIS [facility] Roger Sanchez MD NO ADDRESS ON FILE Other Screening Mammogram Social History Tobacco Use Types Packs/Day Years Used Date Smoking Tobacco: Never Assessed Comments Unknown Sex and Gender Information Value Date Recorded Sex Assigned at Not on file Legal Sex Female 5:12 AM CUT OFF [employer] Gender Identity Not on file Sexual Orientation [...] AM CDT Narrative 06/26/2008 2:37 PM CDT [address] [place], [place] [address] Admit Date: 06/26/2008 DARIO MOSELEY Sex: F Admit Prov: ROGER GARCIA Date: 1955 Primary Care Prov: BAM ACOSTA CMRN: [id number] Room: Pipo N: [id number] IMAGING SERVICES Ordering Prov: ROGER GARCIA Accession Number: [id number] Interpretation DIGITAL SCREENING MAMMOGRAM WITH COMPUTER-ASSISTED DIAGNOSIS [...] Procedure Note Malgorzata Gerber MD - 06/26/2008 [address] [place], [place] [address] Admit Date: 06/26/2008 DARIO MOSELEY Sex: F Admit Prov: JOSEROGER Date: 1955 Primary Care Prov: BAM ACOSTA CMRN: [id number] Room: DINORAHPipo N: [id number] IMAGING SERVICES Ordering Prov: ROGER GARCIA Interpretation [...] mammogram documented in this encounter Care Teams Student Success Counselor Relationship Specialty Start Date End Date Bam Acosta MD PCP - General 02/19/15 documented as of this encounter
--- OUTSIDE RECORDS SUMMARY | 2024-09-01 20:19 | XMS_ITS | Clinical Summary ---
Author Organization [facility] Address [address] [place] [address] Care Team Providers Care Technology Trainer Name Role Phone Shannon Poon MD Unavailable UnavailMahesh Hampton MD Unavailable [phone] Adonay Lopez MD Unavailable Unavailable Krista Tubbs MD Unavailable [phone] Manjinder Torres MD Unavailable Cassidy Guerrero DO Unavailable [phone] Tutu Baron DO Primary Care Provider [phone] Source Comments [facility],non-owned Affiliates and Associated Physician Practices is amultiple site organization consisting of ambulatory clinics and hospital sitesin [place], [place], [place] and [place]. This disclosure is being madepursuant to the Care Everywhere program and may not contain all information available regarding this patient. Last updated 17.[facility] Allergies Active Allergy Reactions Criticality Noted [...] fluticasone propionate (FLONASE) 50 MCG/ACT nasal spray [place] 2 (two) sprays into the nose once [...] on file Legal Sex Female 9:08 AM MAP DRAFTER Gender Identity Not on file Sexual Orientation Not on file Occupation Industry Job Start Date Job End Date homemaker Not on file Not on file Not on file retired Not on file Not on file Not on file Last Filed Vital Signs Vital Sign Reading Time Taken Comments Blood Pressure 118/66 01/10/2024 11:20 AM MAP DRAFTER Pulse 76 01/10/2024 11:20 AM MAP DRAFTER Temperature 36.8 C (98.2 F) 01/01/2024 3:06 PM CDT Respiratory Rate 18 06/08/2020 11:59 AM CDT Oxygen Saturation 98% 01/01/2024 3:06 PM CDT Inhaled Oxygen Concentration - - Weight 77.3 kg (170 lb 6.4 oz) 01/10/2024 11:20 AM MAP DRAFTER Height 160 cm (5' 3) 01/01/2024 3:06 PM CDT Body Mass Index 30.19 01/01/2024 3:06 PM CDT Plan of Treatment Upcoming Encounters Date Type Department Care Team (Late st Contact Info) Description 01/01/2025 1:40 PM CDT Office Visit [facility] Medical [facility] - Internal Medicine [address] [facility] [place] [address] Tutu Baron DO [address] [facility] [place] [phone] 01/09/2025 1:00 PM MAP DRAFTER Office Visit [facility] [address] [place] [address] [address] [place], [place] [id number] Cassidy Guerrero DO [facility] [facility] [address] [place], [place] [id number] Health Maintenance Due Date Last Done Comments [...] < 140/90 Blood Pressure 118/66(2023 11:20 AM MAP DRAFTER) No Felicity Hess Exercise 3X per week (30 min per time) Exercise On track( 015 11:08 AM MAP DRAFTER) No Pam Garcia MA Procedures Procedure Name Priority Date/Time Associated Diagnosis Comments COMPREHENSIVE METABOLIC PANEL Routine 01/01/2024 3:43 PM CDT Essential hypertension MAMMO BILAT SCREENING Routine 01/01/2023 Screening mammogram for breast cancer HEPATITIS C ANTIBODY Routine 01/05/2020 2:19 PM MAP DRAFTER Need for hepatitis C screening test ENDOSCOPY, [...] 01/02/2024 9:13 AM CDT Performed at: [address] [id number] Undertaker Helper: Dejon Mcgee PhD, Phone: [phone] Tutu Baron DO LAB - CHEMISTRY ORDERABLES Final Result [facility] INSURANCE BILL [address] [place] [address] * MAMMO BILAT SCREENING (01/01/2023) Anatomical Region Laterality Modality Breast Bilateral Mammography 01/01/2023 Tutu Baron DO MAMMO ORDERABLES Final Result * HEPATITIS C ANTIBODY (01/05/2020 2:19 PM MAP DRAFTER) Hepatitis C Antibody Non Reactive Non Reactive [facility] ACCOUNT BILL Comment: Non Reactive - Antibodies to Hepatitis C virus (HCV) were no t detected, result does not exclude early acute HCV infection. Blood BLOOD SPECIMEN / Unknown 01/05/2020 2:19 PM MAP DRAFTER 01/05/2020 Narrative Resulting Agency Comment Lab Testing performed at: [facility] [address] [facility] [id number] Gabriela Lenz MD LAB - CHEMISTRY ORDERABLES Final Result Performing Organization Address [facility] Co de Phone Number [facility] ACCOUNT BILL [address] [place] [address] * ENDOSCOPY, COLON, SCREENING (10/27/2015) Bam Acosta MD GI PROCEDURE ORDERABLES Tracy l Result * DEXA BONE DENSITY 2 SITES (10/12/2009) Anatomical Region Laterality Modality Other Bam Acosta MD DEXA ORDERABLES Final Result from Last 3 Months or Most Recently Relevant to Health Maintenance Insurance MEDICARE COMMERCIAL GENERIC Care Teams Technology Trainer Relationship Specialty Start Date End Date Tutu Baron DO [address] [place] [phone] PCP - General Internal Medicine 08/25/21 Shannon Poon MD 10/16/09 Mahesh Duke MD [address] [address] 10/16/09 Adonay Lopez MD [address] [address] Ophthalmology 03/26/13 Krista Tubbs MD [address] [place] [phone] Physical Medicine and Rehabilitation 09/09/14 Manjinder Torres MD [address] [place] [address] Obstetrics and Gynecology 02/07/19 Cassidy Guerrero DO [address] [facility] [address] [place] [address] Cardiovascular Disease 07/25/21
--- OUTSIDE RECORDS SUMMARY | 2024-09-01 20:19 | XMS_ITS | Encounter Summary ---
Author Organization [facility] Address [address] [place] [address] Care Team Providers Care Planing Machine Operator Name Role Phone Bam Acosta [...] on file Legal Sex Female 5:12 AM IT NETWORK ARCHITECT Gender Identity Not on file Sexual Orientation Not on file documented as of this encounter Plan of Treatment Not on file documented as of this encounter Visit Diagnoses Diagnosis Special screening for malignant neoplasms, colon- Primary documented in this encounter Care Teams Planing Machine Operator Relationship Specialty Start Date End Date Bam Acosta MD PCP - General 02/19/15 documented as of this encounter
--- OUTSIDE RECORDS SUMMARY | 2024-09-01 20:19 | XMS_ITS | Encounter Summary ---
Author Organization [facility] Address [address] [place] [address] Care Team Providers Care Recruitment Advertising Manager Name Role Phone Bam Acosta MD Primary Care Provider Unavail able Encounter Details Date Type Department Care Team (Latest Contact Info) Description 2005 Outpatient Historical HIS [facility] HELEN Fernandes, Roger Gould MD NO ADDRESS ON FILE Other Screening Mammogram (Primary Dx) Social History Tobacco Use Types Packs/Day Years Used Date Smoking Tobacco: Never Assessed Comments Unknown Sex and Gender Information Value Date Recorded Sex Assigned at Not on file Legal Sex Female 5:12 AM JEWEL STAKER Gender Identity Not on file Sexual Orientation Not on file documented as of this encounter Plan of Treatment Not on file documented as of this encounter Visit Diagnoses Diagnosis Other screening mammogram- Primary documented in this encounter Care Teams Recruitment Advertising Manager Relationship Specialty Start Date End Date Bam Acosta MD PCP - General 02/19/15 documented as of this encounter
--- OUTSIDE RECORDS SUMMARY | 2024-09-01 20:19 | XMS_ITS | Encounter Summary ---
Author Organization [facility] Address [address] [place] [address] Care Team Providers Care Steel Buffer Name Role Phone Bam Acosta MD Primary Care Provider Unavail able Encounter Details Date Type Department Care Team (Latest Contact Info) Description 04/12/2001 Outpatient Historical HIS [facility] HELEN Fernandes, Roger Gould MD NO ADDRESS ON FILE SCREENING MAMM-MAILG NEOPL-OTHER (Primary Dx) Social History Tobacco Use Types Packs/Day Years Used Date Smoking Tobacco: Never Assessed Comments Unknown Sex and Gender Information Value Date Recorded Sex Assigned at Not on file Legal Sex Female 5:12 AM ACCOUNTANT BUDGET Gender Identity Not on file Sexual Orientation Not on file documented as of this encounter Plan of Treatment Not on file documented as of this encounter Visit Diagnoses Diagnosis Other screening mammogram- Primary documented in this encounter Care Teams Steel Buffer Relationship Specialty Start Date End Date Bam Acosta MD PCP - General 02/19/15 documented as of this encounter
--- OUTSIDE RECORDS SUMMARY | 2024-09-01 20:19 | XMS_ITS | Encounter Summary ---
Author Organization [facility] Address [address] [place] [address] Care Team Providers Care Human Resources Specialist Name Role Phone Bam Acosta MD Primary Care Provider Unavail able Encounter Details Date Type Department Care Team (Latest Contact Info) Description 05/02/2004 Outpatient Historical HIS [facility] HELEN Fernandes, Roger Gould MD NO ADDRESS ON FILE SCREENING MAMM-MAILG NEOPL-OTHER (Primary Dx) Social History Tobacco Use Types Packs/Day Years Used Date Smoking Tobacco: Never Assessed Comments Unknown Sex and Gender Information Value Date Recorded Sex Assigned at Not on file Legal Sex Female 5:12 AM ENGRAVER COPPERPLATE Gender Identity Not on file Sexual Orientation Not on file documented as of this encounter Plan of Treatment Not on file documented as of this encounter Visit Diagnoses Diagnosis Other screening mammogram- Primary documented in this encounter Care Teams Human Resources Specialist Relationship Specialty Start Date End Date Bam Acosta MD PCP - General 02/19/15 documented as of this encounter
--- OUTSIDE RECORDS SUMMARY | 2024-09-01 20:19 | XMS_ITS | Encounter Summary ---
Author Organization [facility] Address [address] [place] [address] Care Team Providers Care Senior Drafter Name Role Phone Bam Acosta MD Primary Care Provider Unavail able Encounter Details Date Type Department Care Team (Latest Contact Info) Description 06/25/2006 Outpatient Historical HIS [facility] HELEN Fernandes, Roger Gould MD NO ADDRESS ON FILE Other Screening Mammogram (Primary Dx) Social History Tobacco Use Types Packs/Day Years Used Date Smoking Tobacco: Never Assessed Comments Unknown Sex and Gender Information Value Date Recorded Sex Assigned at Not on file Legal Sex Female 5:12 AM TOBACCO CONDITIONER Gender Identity Not on file Sexual Orientation Not on file documented as of this encounter Plan of Treatment Not on file documented as of this encounter Visit Diagnoses Diagnosis Other screening mammogram- Primary documented in this encounter Care Teams Senior Drafter Relationship Specialty Start Date End Date Bam Acosta MD PCP - General 02/19/15 documented as of this encounter
--- OUTSIDE RECORDS SUMMARY | 2024-09-01 20:19 | XMS_ITS | Clinical Summary ---
Author Organization [facility] Address [address] [place] [address] Care Team Providers Care Merchandise Deliverer Name Role Phone Bam Acosta MD Primary [...] AQ) 55 mcg nasal spray Administer 1 [place] in each nostril daily. Active famotidine (PEPCID) [...] Ac tive fluticasone propionate (FLONASE) 50 mcg/spray [place], Suspension nasal inhaler Administer 2 Sprays in [...] Comments Alcohol abuse Brother Hypertension Father Gregg [place] Choleste rol, Parkinson s Dementia Other [...] on file Legal Sex Female 5:12 AM WOOD CREW SUPERVISOR Gender Identity Not on file Sexual Orientation Not on file Occupation Industry Job Start Date Job End Date Not on file Not on file Not on file Not on file Last Filed Vital Signs Vital Sign Reading Time Taken Comments Blood Pressure 130/82 04/14/2024 1:07 PM WOOD CREW SUPERVISOR Pulse - - Temperature - - Respiratory Rate - - Oxygen Saturation - - Inhaled Oxygen Concentration - - Weight 76.7 kg (169 lb) 04/14/2024 1:07 PM WOOD CREW SUPERVISOR Height 160 cm (5' 3) 04/14/2024 1:07 PM WOOD CREW SUPERVISOR Body Mass Index 29.94 04/14/2024 1:07 PM WOOD CREW SUPERVISOR Plan of Treatment Health Maintenance Due Date [...] SITES AXIAL SKEL Routine 04/21/2024 1:33 PM WOOD CREW SUPERVISOR MAMMO 3D JUDY SCREEN BILAT W OR WO CAD Routine 02/13/2024 1:24 PM WOOD CREW SUPERVISOR Visit for screening mammogram from Last 3 Months or Most Recently Relevant to Health Maintenance Results * CHG DXA BONE DENSITY STUDY 1/> SITES AXIAL SKEL (04/21/2024 1:33 PM WOOD CREW SUPERVISOR) us Brandon Linda MD [place] - IMAGING Edited Resul t - Final [facility] BRAKE OPERATOR HELPER BOISEER [address] [facility] [address] IA# [id number] [address] [facility] [address] [place] [address] * MAMMO 3D JUDY SCREEN BILAT W OR WO CAD (02/13/2024 1:24 PM WOOD CREW SUPERVISOR) Anatomical Region Laterality Modality Breast Bilateral Mammography 02/13/2024 1:24 PM WOOD CREW SUPERVISOR Impressions 02/13/2024 1:45 PM WOOD CREW SUPERVISOR IMPRESSION: No mammographic evidence of malignancy. RECOMMENDATIONS: Routine screening mammogram in one year. DICTATION LOCATION: [facility] 02/13/2024 1:45 PM WOOD CREW SUPERVISOR BILATERAL FULL-FIELD DIGITAL SCREENING MAMMOGRAM WITH CAD [...] screening mammogram in one year. DICTATION LOCATION: [facility] Bam Acosta MD MAMMO ORDERABLES Final Result from Last 3 Months or Most Recently Relevant to Health Maintenance Insurance MEDICARE PART A AND B [facility] Care Teams Merchandise Deliverer Relationship Specialty Start Date End Date Bam Acosta MD PCP - General 02/19/15
--- OUTSIDE RECORDS SUMMARY | 2024-09-01 20:19 | XMS_ITS | Encounter Summary ---
Author Organization [facility] Address [address] [place] [address] Care Team Providers Care Restaurant Host Name Role Phone Bam Acosta MD Primary Care Provider Unavail able Encounter Details Date Type Department Care Team (Latest Contact Info) Description 06/26/2007 Outpatient Historical HIS [facility] Roger Sanchez MD NO ADDRESS ON FILE Other Screening Mammogram Social History Tobacco Use Types Packs/Day Years Used Date Smoking Tobacco: Never Assessed Comments Unknown Sex and Gender Information Value Date Recorded Sex Assigned at Not on file Legal Sex Female 5:12 AM VACUUM CLEANER REPAIR PERSON Gender Identity Not on file Sexual Orientation [...] AM CDT Narrative 06/27/2007 7:51 AM CDT [address] [place], [place] [address] Admit Date: 06/26/2007 DARIO MOSELEY Sex: F Admit Prov: ROGER GARCIA Date: 1955 Primary Care Prov: BAM ACOSTA CMRN: [id number] Room: DINORAHPipo N: [id number] IMAGING SERVICES Ordering Prov: ROGER GARCIA Accession Number: [id number] Interpretation BILATERAL SCREENING DIGITAL MAMMOGRAMS WITH COMPUTER [...] AMK Procedure Note Nell Cárdenas - 06/27/[address] [address] Admit Date: 06/26/2007 DARIO MOSELEY Sex: F Admit Prov: ROGER GARCIA Date: 1955 Primary Care Prov: BAM ACOSTA CMRN: [id number] Room: SAQIB N: [id number] IMAGING SERVICES Ordering Prov: ROGER GARCIA Interpretation [...] mammogram documented in this encounter Care Teams Restaurant Host Relationship Specialty Start Date End Date Bam Acosta MD PCP - General 02/19/15 documented as of this encounter
--- OUTSIDE RECORDS SUMMARY | 2024-09-01 20:19 | XMS_ITS | Encounter Summary ---
Author Organization [facility] Address [address] [place] [address] Care Team Providers Care Chain Hoist Operator Name Role Phone Bam Acosta MD Primary Care Provider Unavail able Encounter Details Date Type Department Care Team (Latest Contact Info) Description 04/30/2003 Outpatient Historical HIS [facility] HELEN Fernandes, Roger Gould MD NO ADDRESS ON FILE SCREENING MAMM-MAILG NEOPL-OTHER (Primary Dx) Social History Tobacco Use Types Packs/Day Years Used Date Smoking Tobacco: Never Assessed Comments Unknown Sex and Gender Information Value Date Recorded Sex Assigned at Not on file Legal Sex Female 5:12 AM HEARING STENOGRAPHER Gender Identity Not on file Sexual Orientation Not on file documented as of this encounter Plan of Treatment Not on file documented as of this encounter Visit Diagnoses Diagnosis Other screening mammogram- Primary documented in this encounter Care Teams Chain Hoist Operator Relationship Specialty Start Date End Date Bam Acosta MD PCP - General 02/19/15 documented as of this encounter
--- OUTSIDE RECORDS SUMMARY | 2024-09-01 20:19 | XMS_ITS | Encounter Summary ---
Author Organization [facility] Address [address] [place] [address] Care Team Providers Care Hydraulic Jack Mechanic Name Role Phone Bam Acosta MD Primary Care Provider Unavail able Encounter Details Date Type Department Care Team (Latest Contact Info) Description 04/24/2002 Outpatient Historical HIS [facility] HELEN Fernandes, Roger Gould MD NO ADDRESS ON FILE SCREENING MAMM-MAILG NEOPL-OTHER (Primary Dx) Social History Tobacco Use Types Packs/Day Years Used Date Smoking Tobacco: Never Assessed Comments Unknown Sex and Gender Information Value Date Recorded Sex Assigned at Not on file Legal Sex Female 5:12 AM BLOOD BANK TECHNOLOGIST Gender Identity Not on file Sexual Orientation Not on file documented as of this encounter Plan of Treatment Not on file documented as of this encounter Visit Diagnoses Diagnosis Other screening mammogram- Primary documented in this encounter Care Teams Hydraulic Jack Mechanic Relationship Specialty Start Date End Date Bam Acosta MD PCP - General 02/19/15 documented as of this encounter
[2024-09-01 21:35] VITALS: BP 139/79; PULSE 81; RESP 15; O2SAT 99
[2024-09-01] MEDS: HYDROcodone/acetaminophen (*CRX) 5-325 MG TABLET 1 TAB PO (22:05)
[2024-09-01] MEDS: SODIUM CHLORIDE 0.9% IV 1,000 ML 999 ML IV CONT (22:05)
[2024-09-01] MEDS: ACETAMINOPHEN 325 MG TABLET 650 MG PO (22:05)
[2024-09-02 00:03] VITALS: BP 143/76; PULSE 84; RESP 19; O2SAT 99
[2024-09-02 00:15] LABS: Anion Gap 6 mmol/L (4-12); Blood Urea Nitrogen 14 mg/dL (7-17); Calcium 8.6 mg/dL (8.4-10.2); Carbon Dioxide 26 mmol/L (22-30); Chloride 99 mmol/L (98-107); Estimated CRCL calculation 68 ml/min; Estimated Glomerular Filt Rate > 60; Glucose 97 mg/dL (65-110); Potassium 3.6 mmol/L (3.4-5.0); Sodium 131 mmol/L (137-145)
[2024-09-02 01:37] VITALS: BP 140/83; PULSE 88; RESP 16; O2SAT 100
[2024-09-02 01:39] VITALS: BP 140/83; PULSE 88; RESP 16; O2SAT 100
== END 2024-09-02 01:40 | disposition home or self-care (01) ==
PROVIDERS: Registered Nurse; Emergency Provider Physician Assistant
DX: M54.16 Radiculopathy, lumbar region (principal); E87.1 Hypo-osmolality and hyponatremia; M79.604 Pain in right leg; R93.89 Abnormal findings on diagnostic imaging of other specified body structures
CPT/HCPCS: 36415; 72131; 73502; 76856; 80048; 80053; 81001; 85025; 87086; 93971; 96360; 96372; 99284; A9270; J1885; J7030